=== PATIENT | female | born 1975 | race Caucasian/White ===

== ENCOUNTER 2023-05-09 16:24 | Emergency (ER) | payer MEDICARE ==
[2023-05-09] MEDS ORDERED: KETOROLAC 15 MG/ML 1 ML VIAL IM STA (16:44)
--- NOTE | 2023-05-09 16:47 | ED ---
Lower Extremity Injury HPI - General Chief Complaint: Extremity Injury, Lower Stated Complaint: right leg swelling Time Seen by Provider: 05/09/23 16:35 Source: patient Mode of arrival: ambulatory Limitations: no limitations - History of Present Illness Initial Comments: 47-year-old female presenting with chief complaint of swelling and pain to the right leg. She reports that nearly a week ago she fell down a few stairs and injured the right leg. She has been able to ambulate since. Today when she woke up she had increasing pain throughout the leg mainly in the calf. She states that it feels tight and swollen. She has been taking ibuprofen with little relief. No chest pain or difficulty breathing. No history of blood clots. No recent surgery or travel. No palpitations. - Related Data Allergies Allergy/AdvReac Type Severity Reaction Status Date / Time No Known Allergies Allergy Verified 05/09/23 16:29 Review of Systems ROS Statement: Those systems with pertinent positive or pertinent negative responses have been documented in the HPI. ROS Other: All systems not noted in ROS Statement are negative. Past Medical History Past Medical History: Diabetes Mellitus Past Surgical History: Bariatric Surgery, Cholecystectomy Past Psychological History: Bipolar General Exam Limitations: no limitations General appearance: alert, in no apparent distress Head exam: Present: atraumatic, normocephalic, normal inspection Eye exam: Present: normal appearance Neck exam: Present: normal inspection, full ROM Respiratory exam: Present: normal lung sounds bilaterally. Absent: respiratory distress, wheezes, rales, rhonchi, stridor Cardiovascular Exam: Present: regular rate, normal rhythm, normal heart sounds. Absent: systolic murmur, diastolic murmur, rubs, gallop, clicks Extremities exam: Present: pedal edema, calf tenderness Neurological exam: Present: alert, oriented X3, CN II-XII intact Psychiatric exam: Present: normal affect, normal mood Skin exam: Present: warm, dry, intact, normal color. Absent: rash Course Vital Signs 05/09/23 16:25 Temperature 97.8 F Pulse Rate 106 H Respiratory 20 Rate Blood Pressure 144/83 O2 Sat by Pulse 97 Oximetry Medical Decision Making - Medical Decision Making Was pt. sent in by a medical professional or institution (, PA, SIGN PAINTER, urgent care, hospital, or senior care...) When possible be specific @ -No Did you speak to anyone other than the patient for history (EMS, parent, family, police, friend...)? What history was obtained from this source @ -No Did you review nursing and triage notes (agree or disagree)? Why? @ -I reviewed and agree with nursing and triage notes Were old charts reviewed (outside hosp., previous admission, EMS record, old EKG, old radiological studies, urgent care reports/EKG's, senior care records)? Report findings @ -No old charts were reviewed Differential Diagnosis (chest pain, altered mental status, abdominal pain women, abdominal pain men, vaginal bleeding, weakness, fever, dyspnea, syncope, headache, dizziness, GI bleed, back pain, seizure, CVA, palpatations, mental health, musculoskeletal)? @ -Differential Musculoskeletal Muscular strain, contusion, ligament sprain, fracture, arthritis, septic arthritis, bursitis, cellulitis, muscle spasm, nerve compression, DVT, arterial occlusion, herpes zoster, electrolyte abnormality, tumor.... This is not meant to be in all inclusive list EKG interpreted by me (3pts min.). @ -As above X-rays interpreted by me (1pt min.). @ -None done CT interpreted by me (1pt min.). @ -None done U/S interpreted by me (1pt. min.). @ -US is negative for DVT What testing was considered but not performed or refused? (CT, X-rays, U/S, labs)? Why? @ -None What meds were considered but not given or refused? Why? @ -None Did you discuss the management of the patient with other professionals (professionals i.e. , PA, SIGN PAINTER, lab, RT, psych nurse, social media manager, instructional facilitator, teacher, environmental technical officer, case packer and sealer)? Give summary @ -No Was smoking cessation discussed for >3mins.? @ -No Was critical care preformed (if so, how long)? @ -No Were there social determinants of health that impacted care today? How? (Homelessness, low income, unemployed, alcoholism, drug addiction, transportation, low edu. Level, literacy, decrease access to med. care, correction, rehab)? @ -No Was there de-escalation of care discussed even if they declined (Discuss DNR or withdrawal of care, Hospice)? DNR status @ -No What co-morbidities impacted this encounter? (DM, HTN, Smoking, COPD, CAD, Ca ncer, CVA, ARF, Chemo, Hep., AIDS, mental health diagnosis, sleep apnea, morbid obesity)? @ -None Was patient admitted / discharged? Hospital course, mention meds given and route, prescriptions, significant lab abnormalities, going to OR and other pertinent info. @ -47-year-old female presenting with chief complaint of pain and swelling to the right lower extremity. She states that about a week ago she missed the the last few steps on her porch and injured the leg. She has been able to weight-bear. She states that yesterday she was up on her feet a lot more than she had been since her injury. Today she had increased pain and swelling. On physical examination the leg is warm and distal pulses are 2+. She does have tenderness on palpation of the calf. She has full range of motion. Ultrasound is negative for DVT. CBC is unremarkable. Creatinine kinase is WNL. She reports improvement in her pain after morphine. Patient is educated on supportive management at home. She is educated on alarms symptoms that should prompt immediate reevaluation. Follow-up with PCP. Report back to ER with any new or worsening symptoms. Discussed return parameters and answered all questions. Patient conveyed verbal understanding and agreed to the plan. I discussed this case in detail with my attending Dr. Parker Undiagnosed new problem with uncertain prognosis? @ -No Drug Therapy requiring intensive monitoring for toxicity (Heparin, Nitro, Insulin, Cardizem)? @ -No Were any procedures done? @ -No Diagnosis/symptom? @ -Leg cramping Acute, or Chronic, or Acute on Chronic? @ -Acute Uncomplicated (without systemic symptoms) or Complicated (systemic symptoms)? @ -uncomplicated Side effects of treatment? @ -No Exacerbation, Progression, or Severe Exacerbation? @ -No Poses a threat to life or bodily function? How? (Chest pain, [place], [place], pneumonia, PE, COPD, DKA, ARF, appy, cholecystitis, CVA, Diverticulitis, Homicidal, Suicidal, threat to staff... and all critical care pts) @ -Low likelihood - Lab Data Result diagrams: 05/09/23 18:28 05/09/23 18:28 Lab Results 05/09/23 05/09/23 Range/Units 18:28 18:28 WBC 7.9 (3.8-10.6) k/uL RBC 4.73 (3.80-5.40) m/uL Hgb 13.7 (11.4-16.0) gm/dL Hct 41.8 (34.0-46.0) % MCV 88.2 (80.0-100.0) fL MCH 29.0 (25.0-35.0) pg MCHC 32.9 (31.0-37.0) g/dL RDW 13.3 (11.5-15.5) % Plt Count 197 (150-450) k/uL MPV 8.8 Neutrophils % 59 % Lymphocytes % 29 % Monocytes % 8 % Eosinophils % 2 % Basophils % 1 % Neutrophils # 4.7 (1.3-7.7) k/uL Lymphocytes # 2.3 (1.0-4.8) k/uL Monocytes # 0.6 (0-1.0) k/uL Eosinophils # 0.1 (0-0.7) k/uL Basophils # 0.0 (0-0.2) k/uL Sodium 133 L (137-145) mmol/L Potassium 4.4 (3.5-5.1) mmol/L Chloride 103 (98-107) mmol/L Carbon Dioxide 23 (22-30) mmol/L Anion Gap 7 mmol/L BUN 18 H (7-17) mg/dL Creatinine 0.66 (0.52-1.04) mg/dL Est GFR (CKD-EPI)AfAm >90 (>60 ml/min/1.73 sqM) Est GFR (CKD-EPI)NonAf >90 (>60 ml/min/1.73 sqM) Glucose 216 H (74-99) mg/dL Calcium 8.7 (8.4-10.2) mg/dL Total Bilirubin 0.4 (0.2-1.3) mg/dL AST 23 (14-36) U/L ALT 17 (4-34) U/L Alkaline Phosphatase 83 (38-126) U/L Creatine Kinase 85 (30-135) U/L Total Protein 6.1 L (6.3-8.2) g/dL Albumin 3.5 (3.5-5.0) g/dL Disposition Clinical Impression: Leg pain Disposition: HOME SELF-CARE Condition: Good Instructions (If sedation given, give patient instructions): Leg Pain (ED) Additional Instructions: Follow-up with PCP. Report back to ER with any new or worsening symptoms. Take Motrin and Tylenol as needed for pain control. Rest, ice, elevate the leg. Is patient prescribed a controlled substance at d/c from ED?: No Referrals: Nonstaff,Physician [Primary Care Provider] - 1-2 days Time of Disposition: 19:20
[2023-05-09] MEDS ORDERED: diphenhydrAMINE 50 MG CAP PO STA (16:49)
--- NOTE | 2023-05-09 17:29 | US ---
EXAMINATION TYPE: US venous doppler duplex LE RT DATE OF EXAM: 05/09/2023 4:45 PM COMPARISON: NONE CLINICAL INDICATION: Female, 47 years old with history of swelling; swelling and pain in reeves after r ecent fall down stairs, no h/o DVT SIDE PERFORMED: Right TECHNIQUE: The lower extremity deep venous system is examined utilizing real time linear array sonog marino with graded compression, doppler sonography and color-flow sonography. VESSELS IMAGED: Common Femoral Vein Deep Femoral Vein Greater Saphenous Vein * Femoral Vein Popliteal Vein Small Saphenous Vein * Proximal Calf Veins Posterior tibial veins (* superficial vessels) Right Leg: Negative for DVT IMPRESSION: No evidence for DVT within the right lower extremity.
[2023-05-09] MEDS ORDERED: MORPHINE SULFATE 4 MG/ML SYRINGE IVP STA (18:04)
[2023-05-09 18:39] LABS: Basophils % (A) 1 %; Eosinophils # (A) 0.1 k/uL (0-0.7); Eosinophils % (A) 2 %; HCT 41.8 % (34.0-46.0); HGB 13.7 gm/dL (11.4-16.0); Lymphocytes # (A) 2.3 k/uL (1.0-4.8); Lymphocytes % (A) 29 %; MCHC 32.9 g/dL (31.0-37.0); MCV 88.2 fL (80.0-100.0); Mean Platelet Volume 8.8; Monocytes # (A) 0.6 k/uL (0-1.0); Monocytes % (A) 8 %; Neutrophils # (A) 4.7 k/uL (1.3-7.7); Neutrophils % (A) 59 %; Platelet Count 197 k/uL (150-450); RBC 4.73 m/uL (3.80-5.40); RDW 13.3 % (11.5-15.5); WBC 7.9 k/uL (3.8-10.6)
[2023-05-09 18:49] LABS: ALT 17 U/L (4-34); AST 23 U/L (14-36); African American GFR (CKD) >90 (>60 ml/min/1.73 sqM); Albumin 3.5 g/dL (3.5-5.0); Alkaline Phosphatase 83 U/L (38-126); Anion Gap 7 mmol/L; Blood Urea Nitrogen 18 mg/dL (7-17); Calcium 8.7 mg/dL (8.4-10.2); Carbon Dioxide 23 mmol/L (22-30); Chloride 103 mmol/L (98-107); Creatine Kinase 85 U/L (30-135); Glucose 216 mg/dL (74-99); Non-African American GFR(CKD) >90 (>60 ml/min/1.73 sqM); Potassium 4.4 mmol/L (3.5-5.1); Sodium 133 mmol/L (137-145); Total Bilirubin 0.4 mg/dL (0.2-1.3); Total Protein 6.1 g/dL (6.3-8.2)
[2023-05-09 19:41] VITALS: BP 107/63; PULSE 67; RESP 18; TEMP 97.9
== END 2023-05-09 19:40 | disposition home or self-care (01) ==
LOC: EC 16:24
DX: M79.661 Pain in right lower leg (principal); E11.9 Type 2 diabetes mellitus without complications; W10.9XXA Fall (on) (from) unspecified stairs and steps, initial encounter
CPT/HCPCS: 36415; 80053; 82550; 85025; 93971; 99284; 96374; 96372; J2270; J1885

== ENCOUNTER 2023-09-22 08:12 | Inpatient (IN) | payer MEDICARE ==
[2023-09-22] MEDS ORDERED: ONDANSETRON 4 MG/2 ML VIAL IVP STA ×2 (08:51→17:47)
[2023-09-22 09:18] LABS: ALT 16 U/L (4-34); AST 33 U/L (14-36); African American GFR (CKD) >90 (>60 ml/min/1.73 sqM); Alkaline Phosphatase 85 U/L (38-126); Anion Gap 12 mmol/L; Blood Urea Nitrogen 20 mg/dL (7-17); Calcium 9.2 mg/dL (8.4-10.2); Carbon Dioxide 25 mmol/L (22-30); Chloride 99 mmol/L (98-107); Glucose 260 mg/dL (74-99); Non-African American GFR(CKD) 80 (>60 ml/min/1.73 sqM); Potassium 4.2 mmol/L (3.5-5.1); Sodium 136 mmol/L (137-145); Total Bilirubin 0.6 mg/dL (0.2-1.3); Total Protein 6.7 g/dL (6.3-8.2)
--- NOTE | 2023-09-22 09:20 | XR ---
EXAMINATION TYPE: XR chest 2V DATE OF EXAM: 09/22/2023 9:12 AM CLINICAL INDICATION:Female, 48 years old with history of difficulty breathing; [facility] COMPARISON: None TECHNIQUE: XR chest 2V Frontal and lateral views of the chest. FINDINGS: Lungs/Pleura: There is no evidence of pleural effusion, focal consolidation, or pneumothorax. Pulmonary vascularity: Unremarkable. Heart/mediastinum: Cardiomediastinal silhouette is unremarkable. A loop recorder projects over the le ft thorax over the heart. Musculoskeletal: No acute osseous pathology. IMPRESSION: No acute cardiopulmonary disease/process.
[2023-09-22 09:22] LABS: INR 0.9 (<1.2); Partial Thromboplastin Time 25.1 sec (22.0-30.0); Prothrombin Time 10.2 sec (10.0-12.5)
[2023-09-22 09:30] LABS: HCT 53.6 % (34.0-46.0); HGB 17.7 gm/dL (11.4-16.0); MCH 28.6 pg (25.0-35.0); MCHC 33.1 g/dL (31.0-37.0); MCV 86.6 fL (80.0-100.0); Mean Platelet Volume 9.4; Platelet Count 248 k/uL (150-450); RBC 6.19 m/uL (3.80-5.40); RDW 12.9 % (11.5-15.5); WBC 3.7 k/uL (3.8-10.6)
[2023-09-22] MEDS ORDERED: MORPHINE SULFATE 4 MG/ML SYRINGE IVP STA (09:46)
--- NOTE | 2023-09-22 09:59 | ED ---
SOB HPI - General Chief Complaint: Shortness of Breath Stated Complaint: DESEAN Time Seen by Provider: 09/22/23 08:20 Source: patient, family Mode of arrival: ambulatory Limitations: no limitations - History of Present Illness Initial Comments: 48-year-old female with past medical history of diabetes mellitus - diet controlled, who presents emergency Department with shortness of breath and right shoulder pain. States that the symptoms started last night. States that she feels short of breath at rest and with exertion. She is having some posterior right shoulder/chest wall discomfort which is worse with positional changes. States that the pain is making her feel nauseated. Pain comes in waves and is currently at a 4 out of 10 right now. She did not attempt to take anything at home for the symptoms. Denies fevers, chills or cough. No history of DVT or PE. No history of coronary disease. She has never had a cardiac workup. She denies any abdominal pain but does admit to weight loss. History of gastric band which was removed. She denies any abdominal pain. No numbness, tickling or weakness in her extremities. No other alleviating, precipitating or mopping factors - Related Data Home Medications Medication Instructions Recorded Confirmed ARIPiprazole [Abilify] 22.5 mg PO DAILY 09/22/23 09/22/23 Dextroamphetamine/Amphetamine 25 mg PO DAILY 09/22/23 09/22/23 [Adderall Xr 25 mg Capsule] lamoTRIgine [LaMICtal] 50 mg PO DAILY 09/22/23 09/22/23 traZODone HCL 150 mg PO HS PRN 09/22/23 09/22/23 Allergies Allergy/AdvReac Type Severity Reaction Status Date / Time metformin AdvReac Diarrhea Verified 09/22/23 11:06 Review of Systems ROS Statement: Those systems with pertinent positive or pertinent negative responses have been documented in the HPI. ROS Other: All systems not noted in ROS Statement are negative. Past Medical History Past Medical History: Diabetes Mellitus History of Any Multi-Drug Resistant Organisms: None Reported Past Surgical History: Bariatric Surgery, Cholecystectomy Past Psychological History: Bipolar Smoking Status: Current every day smoker, Vaper Past Alcohol Use History: Rare Past Drug Use History: Marijuana General Exam Limitations: no limitations General appearance: alert, in no apparent distress Head exam: Present: atraumatic, normocephalic, normal inspection Eye exam: Present: normal appearance, PERRL, EOMI. Absent: scleral icterus, conjunctival injection, periorbital swelling ENT exam: Present: normal exam, mucous membranes moist Neck exam: Present: normal inspection. Absent: tenderness, meningismus, lymphadenopathy Respiratory exam: Present: normal lung sounds bilaterally, chest wall tenderness (To palpation of the right posterior chest wall). Absent: respiratory distress, wheezes, rales, rhonchi, stridor Cardiovascular Exam: Present: regular rate, normal rhythm, normal heart sounds. Absent: systolic murmur, diastolic murmur, rubs, gallop, clicks GI/Abdominal exam: Present: soft, normal bowel sounds. Absent: distended, tenderness, guarding, rebound, rigid Extremities exam: Present: normal inspection, full ROM, normal capillary refill. Absent: tenderness, pedal edema, joint swelling, calf tenderness Back exam: Present: normal inspection Neurological exam: Present: alert, oriented X3, CN II-XII intact Psychiatric exam: Present: normal affect, normal mood Skin exam: Present: warm, dry, intact, normal color. Absent: rash Course Vital Signs 09/22/23 09/22/23 09/22/23 08:17 08:42 08:44 Temperature 98 F Pulse Rate 90 85 Respiratory 18 18 20 Rate Blood Pressure 125/73 129/116 O2 Sat by Pulse 99 99 Oximetry 09/22/23 09/22/23 09/22/23 09:20 10:20 11:00 Temperature Pulse Rate 68 79 80 Respiratory 16 16 Rate Blood Pressure 145/69 128/98 130/91 O2 Sat by Pulse 98 98 95 Oximetry 09/22/23 09/22/23 09/22/23 11:21 11:30 11:58 Temperature 97.6 F Pulse Rate 80 76 Respiratory 22 Rate Blood Pressure 131/98 131/98 O2 Sat by Pulse 95 97 96 Oximetry 09/22/23 09/22/23 09/22/23 12:00 12:30 13:00 Temperature Pulse Rate 76 89 Respiratory Rate Blood Pressure 141/94 102/67 148/121 O2 Sat by Pulse 94 L 97 Oximetry 09/22/23 09/22/23 09/22/23 13:30 14:00 14:30 Temperature Pulse Rate 80 80 72 Respiratory Rate Blood Pressure 122/105 108/94 121/82 O2 Sat by Pulse 94 L 94 L 93 L Oximetry 09/22/23 15:22 Temperature Pulse Rate 75 Respiratory 18 Rate Blood Pressure 106/78 O2 Sat by Pulse 94 L Oximetry Medical Decision Making - Medical Decision Making Was pt. sent in by a medical professional or institution (JEF Rojas, ADA ACCOMMODATION CONSULTANT, urgent care, hospital, or usp...) When possible be specific @ -No Did you speak to anyone other than the patient for history (EMS, parent, family, police, friend...)? What history was obtained from this source @ -No Did you review nursing and triage notes (agree or disagree)? Why? @ -I reviewed and agree with nursing and triage notes Were old charts reviewed (outside hosp., previous admission, EMS record, old EKG, old radiological studies, urgent care reports/EKG's, usp records)? Report findings @ -No old charts were reviewed Differential Diagnosis (chest pain, altered mental status, abdominal pain women, abdominal pain men, vaginal bleeding, weakness, fever, dyspnea, syncope, headache, dizziness, GI bleed, back pain, seizure, CVA, palpatations, mental health, musculoskeletal)? @ -Differential Chest Pain: Stable Angina, Unstable Angina, STEMI, NSTEMI Aortic Dissection, Pneumothorax, Musculoskeletal, Esophageal Spasm GERD, Cholecystitis, Pancreatitis, Zoster, this is not meant to be an all-inclusive list. EKG interpreted by me (3pts min.). @ -Yes and demonstrates a sinus rhythm with a rate of 98. MS interval 142. QRS 102. QTC of 423. No acute ST segment elevations or depressions. Some PVCs X-rays interpreted by me (1pt min.). @ -Yes and demonstrates no acute process CT interpreted by me (1pt min.). @ -Yes and demonstrates no PE U/S interpreted by me (1pt. min.). @ -None done What testing was considered but not performed or refused? (CT, X-rays, U/S, labs)? Why? @ -None What meds were considered but not given or refused? Why? @ -None Did you discuss the management of the patient with other professionals (professionals i.e. JEF Rojas, ADA ACCOMMODATION CONSULTANT, lab, RT, psych nurse, sexual assault social worker, window clerk, teacher, tactical/mobile watch officer, counter caser)? Give summary @ -Spoke with Dr. Hobson who will admit the patient Was smoking cessation discussed for >3mins.? @ -No Was critical care preformed (if so, how long)? @ -Yes, 35 minutes for heparinizing the patient Were there social determinants of health that impacted care today? How? (Homelessness, low income, unemployed, alcoholism, drug addiction, transportation, low edu. Level, literacy, decrease access to med. care, care home, rehab)? @ -No Was there de-escalation of care discussed even if they declined (Discuss DNR or withdrawal of care, Hospice)? DNR status @ -No What co-morbidities impacted this encounter? (DM, HTN, Smoking, COPD, CAD, Cance r, CVA, ARF, Chemo, Hep., AIDS, mental health diagnosis, sleep apnea, morbid obesity)? @ -Diabetes mellitus Was patient admitted / discharged? Hospital course, mention meds given and route, prescriptions, significant lab abnormalities, going to OR and other pert inent info. @ -Admitted. Upon arrival patient was placed into room 18. Thorough history and physical exam was performed. 12-lead EKG is obtained. Laboratory studies are conducted. Chest x-rays performed. D-dimer is elevated therefore patient is sent for CT. CT does not demonstrate a PE. There is a lung nodule. Patient's troponin is elevated. Discussed the results with the patient. She will require admission at this time due to elevated troponin. I did heparinize the patient. She has no contra indications to heparinizing. Spoke with Dr. Hobson who will admit the patient Undiagnosed new problem with uncertain prognosis? @ -Yes Drug Therapy requiring intensive monitoring for toxicity (Heparin, Nitro, Insu clarita, Cardizem)? @ -Heparin Were any procedures done? @ -No Diagnosis/symptom? @ -Acute posterior chest wall pain, right, NSTEMI Acute, or Chronic, or Acute on Chronic? @ -Acute Uncomplicated (without systemic symptoms) or Complicated (systemic symptoms)? @ -Complicated Side effects of treatment? @ -No Exacerbation, Progression, or Severe Exacerbation? @ -No Poses a threat to life or bodily function? How? (Chest pain, [place], [place], pneumonia, PE, COPD, DKA, ARF, appy, cholecystitis, CVA, Diverticulitis, Homicidal, Suicidal, threat to staff... and all critical care pts) @ -Yes as patient has elevated troponin - Lab Data Result diagrams: 09/22/23 08:50 09/22/23 08:50 Lab Results 09/22/23 09/22/23 09/22/23 Range/Units 08:50 08:50 08:50 WBC 3.7 L (3.8-10.6) k/uL RBC 6.19 H (3.80-5.40) m/uL Hgb 17.7 H (11.4-16.0) gm/dL Hct 53.6 H (34.0-46.0) % MCV 86.6 (80.0-100.0) fL MCH 28.6 (25.0-35.0) pg MCHC 33.1 (31.0-37.0) g/dL RDW 12.9 (11.5-15.5) % Plt Count 248 (150-450) k/uL MPV 9.4 Neutrophils % (Manual) 41 % Band Neuts % (Manual) 1 % Lymphocytes % (Manual) 34 % Monocytes % (Manual) 20 % Eosinophils % (Manual) 4 % Neutrophils # (Manual) 1.50 (1.3-7.7) k/uL Lymphocytes # (Manual) 1.26 (1.0-4.8) k/uL Monocytes # (Manual) 0.74 (0-1.0) k/uL Eosinophils # (Manual) 0.15 (0-0.7) k/uL Nucleated RBCs 0 (0-0) /100 WBC Manual Slide Review Performed RBC Morphology Normal PT 10.2 (10.0-12.5) sec INR 0.9 (<1.2) APTT 25.1 (22.0-30.0) sec D-Dimer 0.58 (<0.60) mg/L FEU Sodium 136 L (137-145) mmol/L Potassium 4.2 (3.5-5.1) mmol/L Chloride 99 (98-107) mmol/L Carbon Dioxide 25 (22-30) mmol/L Anion Gap 12 mmol/L BUN 20 H (7-17) mg/dL Creatinine 0.85 (0.52-1.04) mg/dL Est GFR (CKD-EPI)AfAm >90 (>60 ml/min/1.73 sqM) Est GFR (CKD-EPI)NonAf 80 (>60 ml/min/1.73 sqM) Glucose 260 H (74-99) mg/dL Plasma Lactic Acid Jon (0.7-2.0) mmol/L Calcium 9.2 (8.4-10.2) mg/dL Total Bilirubin 0.6 (0.2-1.3) mg/dL AST 33 (14-36) U/L ALT 16 (4-34) U/L Alkaline Phosphatase 85 (38-126) U/L Troponin I (0.000-0.034) ng/mL Total Protein 6.7 (6.3-8.2) g/dL Albumin 4.0 (3.5-5.0) g/dL 09/22/23 09/22/23 Range/Units 08:50 08:50 WBC (3.8-10.6) k/uL RBC (3.80-5.40) m/uL Hgb (11.4-16.0) gm/dL Hct (34.0-46.0) % MCV (80.0-100.0) fL MCH (25.0-35.0) pg MCHC (31.0-37.0) g/dL RDW (11.5-15.5) % Plt Count (150-450) k/uL MPV Neutrophils % (Manual) % Band Neuts % (Manual) % Lymphocytes % (Manual) % Monocytes % (Manual) % Eosinophils % (Manual) % Neutrophils # (Manual) (1.3-7.7) k/uL Lymphocytes # (Manual) (1.0-4.8) k/uL Monocytes # (Manual) (0-1.0) k/uL Eosinophils # (Manual) (0-0.7) k/uL Nucleated RBCs (0-0) /100 WBC Manual Slide Review RBC Morphology PT (10.0-12.5) sec INR (<1.2) APTT (22.0-30.0) sec D-Dimer (<0.60) mg/L FEU Sodium (137-145) mmol/L Potassium (3.5-5.1) mmol/L Chloride (98-107) mmol/L Carbon Dioxide (22-30) mmol/L Anion Gap mmol/L BUN (7-17) mg/dL Creatinine (0.52-1.04) mg/dL Est GFR (CKD-EPI)AfAm (>60 ml/min/1.73 sqM) Est GFR (CKD-EPI)NonAf (>60 ml/min/1.73 sqM) Glucose (74-99) mg/dL Plasma Lactic Acid Jon 1.7 (0.7-2.0) mmol/L Calcium (8.4-10.2) mg/dL Total Bilirubin (0.2-1.3) mg/dL AST (14-36) U/L ALT (4-34) U/L Alkaline Phosphatase (38-126) U/L Troponin I 0.085 H* (0.000-0.034) ng/mL Total Protein (6.3-8.2) g/dL Albumin (3.5-5.0) g/dL Disposition Clinical Impression: NSTEMI (non-ST elevated myocardial infarction), Shoulder pain, Acute respiratory insufficiency Disposition: ADMITTED IP TO THIS [facility] Condition: Serious Is patient prescribed a controlled substance at d/c from ED?: No Time of Disposition: 11:07 Decision to Admit Reason: Admit from EC Decision Date: 09/22/23 Decision Time: 11:07
[2023-09-22 10:21] LABS: Band Neutrophils % 1 %; Eosinophils # (M) 0.15 k/uL (0-0.7); Lymphocytes # (M) 1.26 k/uL (1.0-4.8); Monocytes # (M) 0.74 k/uL (0-1.0); Neutrophils % (M) 41 %; Nucleated Red Blood Cells 0 /100 WBC (0-0); Total Cells Counted 100
[2023-09-22 10:22] LABS: RBC Morphology Normal
--- NOTE | 2023-09-22 10:28 | CT ---
EXAMINATION TYPE: CT chest angio for PE DATE OF EXAM: 09/22/2023 COMPARISON: None available. HISTORY: SOB and right shoulder pain, 30lbs of weightloss in [address] DLP: 422.3 mGycm Automated exposure control for dose reduction was used. CONTRAST: CT Chest for pulmonary embolism performed with with IV Contrast, patient injected with 100 mL of Isov ue 370. FINDINGS: LUNGS: Septal note is made of azygous fissure. There is a trace right pleural effusion. There is a 5. 3 mm nodule in the right lower lobe on series 406 image 71. The lungs otherwise appear clear. MEDIASTINUM: There is satisfactory enhancement of the pulmonary artery and its branches, there is no CT evidence for pulmonary embolism. There are no greater than 1 cm hilar or mediastinal lymph nodes. No pericardial effusion is seen. OTHER: No additional significant abnormality is seen. IMPRESSION: 1. No evidence of pulmonary embolism. 2. No evidence of thoracic aortic aneurysm or dissection. 3. Small right lower lobe pulmonary nodule. 4. In a low-risk patient, no further follow-up would be needed. In a high-risk patient, follow-up in one year is recommended. 5. Trace right pleural effusion.
[2023-09-22] MEDS ORDERED: NALOXONE 0.4 MG/ML 1 ML VIAL IV PRN (11:07)
[2023-09-22] MEDS ORDERED: HEPARIN SODIUM 1,000 UN/ML (10ML VL) IV ONE (11:09)
[2023-09-22] MEDS ORDERED: ASPIRIN 81 MG PO STA (11:09)
[2023-09-22] MEDS ORDERED: HEPARIN SOD,PORK IN 0.45% NACL 25,000 UNIT in 0.45% NACL 1 250ML.BAG IV SCH (11:15)
[2023-09-22] MEDS ORDERED: traZODone HCL 50 MG TAB PO PRN (11:50)
[2023-09-22] MEDS ORDERED: DEXTROSE 50% SYRINGE 50 ML IVP PRN ×2 (11:50)
[2023-09-22 12:14] LABS: Glucose,Whole Blood 194 mg/dL (70-110)
[2023-09-22] MEDS: INSULIN ASPART (NovoLOG) 100 UNIT/ML VIAL SQ SCH ×3 (12:18→21:10)
[2023-09-22] MEDS: ARIPiprazole 15 MG TAB PO SCH (12:24)
--- NOTE | 2023-09-22 12:44 | HP ---
HISTORY AND PHYSICAL CHIEF COMPLAINT: Shortness of breath and right shoulder pain. HISTORY OF PRESENT ILLNESS: This is a 48-year-old woman with a past medical history of diabetes mellitus, bipolar, was complaining of shortness of breath as well as right shoulder pain. The patient came to [facility]. The troponins were found to be elevated up to 0.08 indicating acute dti-AU-hesymti-elevation myocardial infarction. The CTA showed only right lower lobe pulmonary nodule. There is no history of any fever, rigor, or chills. PAST MEDICAL HISTORY: Diabetes mellitus, bipolar, rest of the history and rest of the chart is also reviewed. HOME MEDICATIONS: Reviewed include trazodone, dose and rest of medications reviewed. ALLERGIES: Metformin. FAMILY HISTORY: No history of heart disease or strokes in the family. SOCIAL HISTORY: Smoking by vaping marijuana. REVIEW OF SYSTEMS: A 14-point review is negative except as mentioned. PHYSICAL EXAMINATION: VITAL SIGNS: Pulse is 79, blood pressure 128/90, respirations 16. CHEST: Clear to auscultation. CARDIOVASCULAR: S1, S2. ABDOMEN: Soft, nontender. NERVOUS SYSTEM: No focal deficit. EXTREMITIES: Right shoulder minimum tenderness. HEENT: Normal. SKIN: No ulcer, rash, bleeding. JOINTS: No active deforming arthropathy. LABORATORY DATA: Reviewed. ASSESSMENT: 1. Right shoulder pain, possible acute mnm-SB-asuxubq elevation myocardial infarction, troponin 0.085. 2. Right pulmonary lung nodule. 3. Diabetes mellitus, type 2. 4. Bipolar. 5. History of bariatric surgery. 6. History of noncompliance. RECOMMENDATIONS: Recommended to continue current medications, continue symptomatic treatment. Acute coronary syndrome protocol. Cardiology consultation. Possible cardiac cath. Resume the home medications. Hemoglobin A1c, monitor closely. Prognosis guarded. Further recommendations to follow. Discussed with the patient and family at length. MMODL / IJN: [id number] /
[2023-09-22] MEDS: HYDROmorphone 1 MG/ML 1 ML SYRINGE IVP PRN ×3 (13:31→21:11)
[2023-09-22 17:35] LABS: Glucose,Whole Blood 150 mg/dL (70-110)
[2023-09-22 20:21] LABS: Glucose,Whole Blood 205 mg/dL (70-110)
[2023-09-22] MEDS: HEPARIN SODIUM 1,000 UN/ML (10ML VL) IV PRN (21:09)
[2023-09-23] MEDS: ONDANSETRON 4 MG/2 ML VIAL IVP PRN (00:16)
[2023-09-23] MEDS: HYDROmorphone 1 MG/ML 1 ML SYRINGE IVP PRN ×5 (02:03→20:05)
[2023-09-23 04:37] LABS: Basophils % (A) 1 %; Eosinophils % (A) 1 %; HCT 46.1 % (34.0-46.0); HGB 15.1 gm/dL (11.4-16.0); Lymphocytes # (A) 1.4 k/uL (1.0-4.8); Lymphocytes % (A) 22 %; MCH 28.5 pg (25.0-35.0); MCHC 32.7 g/dL (31.0-37.0); MCV 87.2 fL (80.0-100.0); Mean Platelet Volume 9.8; Monocytes # (A) 0.5 k/uL (0-1.0); Monocytes % (A) 8 %; Neutrophils # (A) 4.3 k/uL (1.3-7.7); Neutrophils % (A) 66 %; Platelet Count 209 k/uL (150-450); RBC 5.29 m/uL (3.80-5.40); RDW 12.8 % (11.5-15.5); WBC 6.6 k/uL (3.8-10.6)
[2023-09-23 04:55] LABS: Partial Thromboplastin Time 42.3 sec (22.0-30.0); Prothrombin Time 10.5 sec (10.0-12.5)
[2023-09-23 05:02] LABS: African American GFR (CKD) >90 (>60 ml/min/1.73 sqM); Anion Gap 10 mmol/L; Blood Urea Nitrogen 18 mg/dL (7-17); Calcium 8.8 mg/dL (8.4-10.2); Carbon Dioxide 24 mmol/L (22-30); Chloride 99 mmol/L (98-107); Glucose 176 mg/dL (74-99); Non-African American GFR(CKD) >90 (>60 ml/min/1.73 sqM); Sodium 133 mmol/L (137-145)
[2023-09-23] MEDS: HEPARIN SODIUM 1,000 UN/ML (10ML VL) IV PRN (05:02)
[2023-09-23 06:00] LABS: Glucose,Whole Blood 143 mg/dL (70-110)
[2023-09-23] MEDS: INSULIN ASPART (NovoLOG) 100 UNIT/ML VIAL SQ SCH ×4 (06:18→21:18)
[2023-09-23] MEDS ORDERED: HEPARIN SODIUM,PORCINE (1 ML) 2,500 UNIT in SODIUM CHLORIDE 0.9% 250 ML IRRIGATION PRN (07:00)
[2023-09-23] MEDS ORDERED: HEPARIN SODIUM,PORCINE 10,000 UNIT in SODIUM CHLORIDE 0.9% 1,000 ML IRRIGATION PRN (07:00)
[2023-09-23] MEDS: ASPIRIN 81 MG PO SCH (07:58)
[2023-09-23] MEDS: ARIPiprazole 15 MG TAB PO SCH (07:59)
[2023-09-23] MEDS: lamoTRIgine 25 MG TAB PO SCH (07:59)
[2023-09-23] MEDS: [UNRECOGNIZED DRUG - OTHER] PO SCH (08:01)
[2023-09-23] MEDS: AMPHETAMINE PO SCH (08:01)
[2023-09-23] MEDS: DEXTROAMPHETAMINE PO SCH (08:01)
--- NOTE | 2023-09-23 08:43 | P.CRDCN ---
History of Present Illness History of present illness: HISTORY OF PRESENT ILLNESS: This is a 48-year-old female with a past medical history significant for bipolar disorder, marijuana use, nicotine dependence in the form of the vaping, and loop recorder in 2010 secondary to recurrent syncope performed in [place], [place]. 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 We have been asked to see the patient in consultation for abnormal troponins. Patient examined at the bedside. Patient states she has been having right shoulder blade discomfort for approximately last 3 days. Patient states yesterday while she was at work she began to have right shoulder blade discomfort that continued to increase in intensity. She denied having any chest pain or pressure. She states the pain in her right shoulder blade is worse with movement and worse with deep inspiration. She denied any radiation of the pain to her arm. She reports that she is short of breath from the shoulder blade pain and states she does not feel like she can take a deep breath. She reports that yesterday at work she felt cold and clammy. She denied having a fever. She states that she feels all of her muscles are sore this morning. * EKG reveals sinus mechanism with Q waves in V1 and V2. No signs of acute ischemia * Chest xray negative for acute process * Chest CTA negative for pulmonary embolism * Laboratory data: Troponin 0.085. 0.079. 0.069. * Current home cardiac medications include none REVIEW OF SYSTEMS: At the time of my exam: CONSTITUTIONAL: Denies fever or chills. HEENT: Denies blurred vision, vision changes, or eye pain. Denies hemoptysis CARDIOVASCULAR: Denies chest pain. Denies orthopnea. Denies PND. Denies palpitations RESPIRATORY: Denies shortness of breath. GASTROINTESTINAL: Denies abdominal pain. Denies nausea or vomiting. HEMATOLOGIC: Denies bleeding disorders. GENITOURINARY: Denies any blood in urine. SKIN: Denies pruitis. Denies rash. PHYSICAL EXAM: VITAL SIGNS: Reviewed. GENERAL: Well-developed in no acute distress. HEENT: Head is normocephalic. Pupils are equal, round. Sclerae anicteric. Mucous membranes of the mouth are moist. Neck supple. No JVD or thyromegaly LUNGS: Respirations even and unlabored. Lungs essentially clear to auscultation bilaterally. HEART: Regular rate and rhythm. S1 and S2 heard. ABDOMEN: Soft. Nondistended. Nontender. EXTREMITIES: Normal range of motion. No clubbing or cyanosis. Peripheral pulses intact. No lower extremity edema NEUROLOGIC: Awake and alert. Oriented x 3. ASSESSMENT: Right shoulder blade pain 3 days Abnormal troponins, flat, of unclear etiology Chest pain, ruled out, patient denies having any chest pain or pressure Bipolar disorder Marijuana use Nicotine dependence in the form of vaping History of loop recorder insertion in 2010 secondary to recurrent syncope Morbid obesity: BMI 38.3 PLAN: An acute coronary and has been ruled out Discontinue IV heparin Obtain 2-D echo to assess cardiac structure and function Begin aspirin 81 mg daily and atorvastatin 40 mg at night Continue telemetry monitoring Patient to undergo stress echocardiogram today to assess for ischemia Smoking cessation recommended Abstinence from marijuana encourage Further recommendations pending patient's course Nurse practitioner note has been reviewed by physician. Signing provider agrees with the documented findings, assessment, and plan of care. Past Medical History Past Medical History: Diabetes Mellitus History of Any Multi-Drug Resistant Organisms: None Reported Past Surgical History: Bariatric Surgery, Cholecystectomy Past Psychological History: Bipolar Smoking Status: Current every day smoker, Vaper Past Alcohol Use History: Rare Past Drug Use History: Marijuana Medications and Allergies Home Medications Medication Instructions Recorded Confirmed Type ARIPiprazole [Abilify] 22.5 mg PO DAILY 09/22/23 09/22/23 History Dextroamphetamine/Amphetamine 25 mg PO DAILY 09/22/23 09/22/23 History [Adderall Xr 25 mg Capsule] lamoTRIgine [LaMICtal] 50 mg PO DAILY 09/22/23 09/22/23 History traZODone HCL 150 mg PO HS PRN 09/22/23 09/22/23 History Allergies Allergy/AdvReac Type Severity Reaction Status Date / Time metformin AdvReac Diarrhea Verified 09/22/23 11:06 Physical Exam Vitals: Vital Signs Temp Pulse Pulse Resp BP BP Pulse Ox 09/23/23 04:00 98.4 F 88 17 127/91 98 09/23/23 02:00 89 17 09/23/23 00:00 98.3 F 89 17 114/82 97 09/22/23 21:20 98.1 F 84 18 116/73 97 09/22/23 20:00 84 19 09/22/23 18:39 98.2 F 93 19 107/88 98 09/22/23 15:22 75 18 106/78 94 L 09/22/23 14:30 72 121/82 93 L 09/22/23 14:00 80 108/94 94 L 09/22/23 13:30 80 122/105 94 L 09/22/23 13:00 148/121 09/22/23 12:30 89 102/67 97 09/22/23 12:00 76 141/94 94 L 09/22/23 11:58 96 09/22/23 11:30 76 131/98 97 09/22/23 11:21 97.6 F 80 22 131/98 95 09/22/23 11:00 80 130/91 95 09/22/23 10:20 79 16 128/98 98 09/22/23 09:20 68 16 145/69 98 09/22/23 08:44 20 09/22/23 08:42 85 18 129/116 99 09/22/23 08:17 98 F 90 18 125/73 99 Intake and Output 09/22/23 09/22/23 09/23/23 14:59 22:59 06:59 Intake Total 329.324 93.592 Balance 329.324 93.592 Intake: Intake, IV Titration 92.324 93.592 Amount Heparin Sod,Pork in 0.45% 92.324 93.592 NaCl 25,000 unit In 0.45 % NaCl 1 250ml.bag @ 10. 02 UNITS/KG/HR 9.999 mls/ hr IV .Q24H [facility] Rx#: [id number] Oral 237 Other: Voiding Method Toilet Toilet # Voids 1 1 Weight 99.79 kg 99.79 kg 101.2 kg Results 09/23/23 04:07 09/23/23 04:07 Cardiac Enzymes 09/22/23 09/22/23 09/22/23 Range/Units 08:50 08:50 11:55 AST 33 (14-36) U/L Troponin I 0.085 H* 0.079 H* (0.000-0.034) ng/mL 09/22/23 Range/Units 15:11 AST (14-36) U/L Troponin I 0.069 H* (0.000-0.034) ng/mL Coagulation 09/22/23 09/22/23 09/23/23 Range/Units 08:50 17:49 04:07 PT 10.2 10.5 (10.0-12.5) sec APTT 25.1 37.6 H 42.3 H (22.0-30.0) sec CBC 09/22/23 09/23/23 Range/Units 08:50 04:07 WBC 3.7 L 6.6 (3.8-10.6) k/uL RBC 6.19 H 5.29 (3.80-5.40) m/uL Hgb 17.7 H 15.1 (11.4-16.0) gm/dL Hct 53.6 H 46.1 H (34.0-46.0) % Plt Count 248 209 (150-450) k/uL Comprehensive Metabolic Panel 09/22/23 09/23/23 Range/Units 08:50 04:07 Sodium 136 L 133 L (137-145) mmol/L Potassium 4.2 4.0 (3.5-5.1) mmol/L Chloride 99 99 (98-107) mmol/L Carbon Dioxide 25 24 (22-30) mmol/L BUN 20 H 18 H (7-17) mg/dL Creatinine 0.85 0.71 (0.52-1.04) mg/dL Glucose 260 H 176 H (74-99) mg/dL Calcium 9.2 8.8 (8.4-10.2) mg/dL AST 33 (14-36) U/L ALT 16 (4-34) U/L Alkaline Phosphatase 85 (38-126) U/L Total Protein 6.7 (6.3-8.2) g/dL Albumin 4.0 (3.5-5.0) g/dL Current Medications Generic Name Dose Route Start Last Admin Trade Name Freq PRN Reason Stop Dose Admin Aripiprazole 22.5 mg 09/22/23 12:30 09/22/23 12:24 Aripiprazole 15 Mg Tab PO Not Given DAILY [facility]ANG Dextrose/Water 25 ml 09/22/23 11:50 Dextrose 50% Syringe 50 Ml IVP PER PROTOCOL PRN Hypoglycemia Protocol Dextrose/Water 50 ml 09/22/23 11:50 Dextrose 50% Syringe 50 Ml IVP PER PROTOCOL PRN Hypoglycemia Protocol Heparin Sodium (Porcine) 0 unit 09/22/23 11:09 09/23/23 05:02 Heparin Sodium 1,000 Un/Ml (10ml Vl) IV 2,500 unit PER PROTOCOL PRN Administration Low PTT Protocol Hydromorphone HCl 1 mg 09/22/23 13:21 09/23/23 05:10 Hydromorphone 1 Mg/Ml 1 Ml Syringe IVP 1 mg Q3HR PRN Administration Pain Heparin Sodium/Sodium Chloride 250 mls @ 9.999 mls/hr 09/22/23 11:15 09/23/23 05:02 25,000 unit/ Sodium Chloride IV 14.03 units/kg/hr .Q24H [facility] 13.999 mls/hr Titration Protocol 10.02 UNITS/KG/HR Insulin Aspart 0 unit 09/22/23 12:30 09/23/23 06:18 Insulin Aspart (Novolog) 100 Unit/Ml Vial SQ Not Given ACHS [facility] Protocol Lamotrigine 50 mg 09/23/23 09:00 Lamotrigine 25 Mg Tab PO DAILY [facility] Naloxone HCl 0.2 mg 09/22/23 11:07 Naloxone 0.4 Mg/Ml 1 Ml Vial IV Q2M PRN Opioid Reversal Non-Formulary Medication 25 mg 09/23/23 09:00 Dextroamphetamine/Amphetamine [Adderall Xr 25 Mg Capsule] PO DAILY [facility] Ondansetron HCl 4 mg 09/23/23 00:10 09/23/23 00:16 Ondansetron 4 Mg/2 Ml Vial IVP 4 mg Q6HR PRN Administration Nausea And Vomiting Trazodone HCl 150 mg 09/22/23 11:50 Trazodone Hcl 50 Mg Tab PO HS PRN Insomnia Intake and Output 09/22/23 09/22/23 09/23/23 14:59 22:59 06:59 Intake Total 329.324 93.592 Balance 329.324 93.592 Intake: Intake, IV Titration 92.324 93.592 Amount Heparin Sod,Pork in 0.45% 92.324 93.592 NaCl 25,000 unit In 0.45 % NaCl 1 250ml.bag @ 10. 02 UNITS/KG/HR 9.999 mls/ hr IV .Q24H [facility] Rx#: [id number] Oral 237 Other: Voiding Method Toilet Toilet # Voids 1 1 Weight 99.79 kg 99.79 kg 101.2 kg Patient Weight 09/23/23 06:59 Weight 101.2 kg 09/23/23 04:07 09/23/23 04:07
[2023-09-23] MEDS ORDERED: ATORVASTATIN 80 MG TAB PO STA (09:59)
[2023-09-23] MEDS ORDERED: ALPRAZolam 0.25 MG TAB PO PRN (09:59)
[2023-09-23] MEDS ORDERED: ASPIRIN 325 MG TAB PO STA (09:59)
--- NOTE | 2023-09-23 11:27 | CA ---
Transthoracic Echo Report Name: Bessie Connors Age: 48 Gender: F : 1975 Exam Date: 09/23/2023 09:54 Exam Location: [facility] Ht (in): 64 Wt (lb): 223 Ordering Physician: Dot Juan DO Attending/Referring Phys: [id number], Yessica Drill Punch Operator Sara Stearns RDCS Procedure CPT: Indications: nstemi Cardiac Hx: Technical Quality: Technically difficult study Contrast 1: Definity Total Dose (mL): 2 Contrast 2: Total Dose (mL): MEASUREMENTS (Male / Female) Normal Values 2D ECHO LV Diastolic Diameter PLAX 4.8 cm 4.2 - 5.9 / 3.9 - 5.3 cm LV Systolic Diameter PLAX 3.6 cm IVS Diastolic Thickness 1.1 cm 0.6 - 1.0 / 0.6 - 0.9 cm LVPW Diastolic Thickness 1.1 cm 0.6 - 1.0 / 0.6 - 0.9 cm LV Relative Wall Thickness 0.5 LA Volume 57.0 cm??? 18 - 58 / 22 - 52 cm??? LA Volume Index 26.1 cm???/m??? 16 - 28 cm???/m??? M-MODE Aortic Root Diameter MM 2.9 cm LA Systolic Diameter MM 4.0 cm LA Ao Ratio MM 1.4 AV Cusp Separation MM 1.7 cm DOPPLER AV Peak Velocity 130.4 cm/s AV Peak Gradient 6.8 mmHg AV Mean Velocity 93.9 cm/s AV Mean Gradient 3.8 mmHg AV Velocity Time Integral 25.0 cm LVOT Peak Velocity 75.7 cm/s LVOT Peak Gradient 2.3 mmHg LVOT Velocity Time Integral 14.3 cm MV Area PHT 3.2 cm??? Mitral E Point Velocity 122.1 cm/s Mitral A Point Velocity 114.9 cm/s Mitral E to A Ratio 1.1 MV Deceleration Time 237.9 ms MV E' Velocity 5.4 cm/s Mitral E to MV E' Ratio 22.8 FINDINGS Left Ventricle Mildly increased left ventricular wall thickness. Left ventricular cavity size normal. Reduced global left ventricular systolic function. Left ventricular ejection fraction is estimated at 35-40 %. inferior hypokinesis Right Ventricle Normal right ventricular size and function. Right Atrium Normal right atrial size. Left Atrium Mildly increased left atrial volume. Mitral Valve Structurally normal mitral valve. Mitral valve thickened. Mild mitral annular calcification. Mild mitral regurgitation. Aortic Valve Trileaflet aortic valve. No aortic valve stenosis or regurgitation. Tricuspid Valve Structurally normal tricuspid valve. Trace tricuspid regurgitation. Pulmonic Valve Trace pulmonic regurgitation. Pericardium No pericardial effusion. Aorta Normal size aortic root and proximal ascending aorta. CONCLUSIONS Moderate to severe LV systolic dysfunction with an ejection fraction of 35-40% with inferior wall hypokinesis secondary to prior myocardial infarction Mild mitral regurgitation Previewed by: Dr. Hal Henderson MD (Electronically Signed) Final Date: 23 September 2023 11:26
[2023-09-23 11:37] LABS: Glucose,Whole Blood 135 mg/dL (70-110)
[2023-09-23] MEDS ORDERED: fentaNYL (PF) 50 MCG/ML 2 ML AMP ONE (14:12)
[2023-09-23] MEDS ORDERED: HEPARIN SODIUM,PORCINE 30 ML 30 ML ONE (14:12)
[2023-09-23] MEDS ORDERED: VERAPAMIL 2.5 MG/ML 2 ML AMP ONE (14:12)
[2023-09-23] MEDS ORDERED: IV FLUID CONTINUATION 1,000 ML IV ONE (14:30)
[2023-09-23] MEDS ORDERED: MIDAZOLAM 2 MG/2 ML VIAL IVP ONE (14:35)
[2023-09-23] MEDS ORDERED: fentaNYL (PF) 50 MCG/ML 2 ML AMP IVP ONE (14:35)
[2023-09-23] MEDS ORDERED: LIDOCAINE 1% INJ 10MG/ML (5 ML VIAL-PF) SQ ONE (14:38)
[2023-09-23] MEDS ORDERED: VERAPAMIL SYRINGE (5 MG/10 ML) INTRAARTER ONE (14:40)
[2023-09-23] MEDS ORDERED: HEPARIN SODIUM 1,000 UN/ML (10ML VL) IV ONE (14:46)
[2023-09-23] MEDS ORDERED: IOPAMIDOL-370 100ML BTL INJ ONE (14:56)
[2023-09-23] MEDS ORDERED: RX INFO: IV CONTRAST WAS GIVEN 1 EACH MISC MISCELLANE PRN (15:06)
[2023-09-23] MEDS ORDERED: SODIUM CHLORIDE 0.9% 1,000 ML IV SCH (15:15)
[2023-09-23] MEDS: lisinopriL 5 MG TAB PO SCH (15:20)
[2023-09-23] MEDS: METOPROLOL SUCCINATE (ER) 50 MG TAB.ER.24H PO SCH (15:20)
[2023-09-23] MEDS: DAPAGLIFLOZIN PROPANEDIOL 10 MG TABLET PO SCH (15:50)
--- NOTE | 2023-09-23 16:32 | PN ---
PROGRESS NOTE DATE OF SERVICE: 09/23/2023 SUBJECTIVE: This is a 48-year-old woman, who was admitted with right shoulder pain, had possible acute dkz-YJ-pxugmof-elevation myocardial infarction. The patient's stress test is abnormal. The patient is scheduled for a cardiac catheterization today. 2D echo showed uuwslvna-fx-ecpxak LV systolic dysfunction. PAST MEDICAL HISTORY: Reviewed. PHYSICAL EXAMINATION: VITAL SIGNS: Pulse is 87, blood pressure 110/65, respirations 17. CHEST: Clear to auscultation. CARDIOVASCULAR: S1 and S2 muffled. ABDOMEN: Soft. NERVOUS SYSTEM: Nonfocal. LABORATORY DATA: Reviewed. ASSESSMENT: 1. Right shoulder pain, possible acute bov-VA-ihgidxh-elevation myocardial infarction. Troponin 0.085. 2. Ibsrfefa-ei-wvydru left ventricular dysfunction. The ejection fraction is 35% to 40% in the 2D echo. 3. Right pulmonary lung nodule. 4. Diabetes mellitus, type 2. 5. Bipolar. 6. History of bariatric surgery. 7. History of noncompliance. RECOMMENDATIONS: Recommend to continue current medications. Continue symptomatic treatment. Continue with antiplatelet agents. Closely follow with Cardiology. Repeat labs. Cardiac catheterization. Further recommendations to follow. MMODL / IJN: [id number] /
[2023-09-23 16:44] LABS: Glucose,Whole Blood 160 mg/dL (70-110)
--- NOTE | 2023-09-23 19:19 | P.CARDCATH ---
Date of Procedure: 09/23/23 Description of Procedure: DIAGNOSTIC CORONARY ANGIOGRAPHY and LEFT HEART CATH REPORT PROCEDURES PERFORMED: Left heart catheterization Selective coronary angiography Moderate conscious sedation 19 mins Ultrasound assisted Right radial access INDICATION: NSTEMI 48-year-old female who presented to the hospital with substernal chest heaviness and nausea and diaphoresis. She had mild but flat elevation of troponin levels. Her echo cardiogram showed resting wall motion abnormality in inferior and inferoapical segments. She also had cardiomyopathy with EF of 3035%. Due to this she was scheduled for an inpatient heart catheterization CONSENT: I have discussed the risks, benefits and alternative therapies for the above-mentioned procedure, sedation/analgesia and necessary blood product administration (if indicated, as they pertain to this patient). The patient has indicated understanding and acceptance of the risks and procedures discussed. Conscious Sedation: Patient's ECG, heart rate, blood pressure, pulse oximetry was monitored throughout the duration of procedure under my direct supervision. [1] mg Versed and [50] mg Fentanyl were used for induction of moderate conscious sedation. Total duration of moderate concious sedation 19 minutes. PROCEDURE: After explaining the risks, benefits and alternatives of the above mentioned procedures in detail to the patient, informed consent was obtained. Patient was taken to the catheterization lab, prepped and draped in usual sterile fashion using universal precuations. Barbow and debra test were performed to confirm adequate perfusion to fingers. Ultrasound was used to identify the radial artery. 1% lidocaine was infiltrated over the right radial artery. A 6-Armenian sheath was placed and secured in the right radial artery using modified Seldinger technique. The sheath was flushed and 5 mg verapamil was administered intra-arterially. J tipped wire was advanced under fluoroscopic guidance. Once the wire tip reache d aortic root 6000 units of IV heparin was given. Over the wire JL4 diagnostic catheter was advanced. Wire was removed, catheter was flushed and manipulated under fluoroscopy to selectively engaged the left coronary ostium. Left coronary angioplasty was performed in different angiographic projections. This catheter was exchanged for a JR4 diagnostic catheter over the wire. The catheter was flushed and manipulated to cross the aortic valve. LV pressures were obtained. Pullback was performed across aortic valve and catheter was manipulated to selectively engage the right coronary ostium under fluoroscopic guidance. Right coronary angiography was performed in different angiographic projections. Catheter was removed over the wire. Radial sheath was flushed. The right radial sheath was removed and a TR band was placed with excellent patent hemostasis was achieved. The patient tolerated the procedure well. Patient was transported back to the post catheterization holding area in stable condition. Angiographic images were reviewed in detail. HEMODYNAMICS: Aortic Pressure: 120/83 mmHg. LV pressure: And 22/70 mmHg. LVEDP 15 mmHg. SELECTIVE CORONARY ARTERIOGRAPHY: LEFT MAIN: The left main is a large caliber vessel which bifurcates into the LAD and circumflex. Left main appears angiographically normal. LEFT ANTERIOR DESCENDING CORONARY ARTERY: LAD is a large caliber vessel. It terminates before reaching the apex. It appears angiographically normal. It gives 1 diagonal branche which appears angiographically normal and is medium size. LEFT CIRCUMFLEX CORONARY ARTERY: It is co-dominant vessel. Left circumflex is a large caliber vessel. Prox LCx has 10-20% eccentric ulcerated plaque with good distal flow. Otherwise appears angiographically normal with good flow. It gives 2 OM branches which are mediums size and appears angiographically normal. RIGHT CORONARY ARTERY: Dominant vessel. The right coronary artery is a large caliber vessel which gives PDA and PLV branch. It appears angiographically normal. IMPRESSION: Ulcerated Plaque in Proximal LCx 10-20% MINOCA (myocardial infarction with non obstructive disease) Normal LVEDP Dilated cardiomyopathy with LVEF 35% by echo Inferior and inferoapical wall motion abnormality by Echo PLAN: Aspirin 81mg Plavix 75 mg for 6 months atorvastatin 80mg lisinopril 5mg metoprolol XL 25 mg daily Performing Physician Jorge Tamez MD
[2023-09-23] MEDS: ATORVASTATIN 40 MG TAB PO SCH (20:05)
[2023-09-23 20:45] LABS: Glucose,Whole Blood 136 mg/dL (70-110)
[2023-09-24] MEDS: HYDROmorphone 1 MG/ML 1 ML SYRINGE IVP PRN ×5 (04:10→20:39)
[2023-09-24 05:58] LABS: Glucose,Whole Blood 124 mg/dL (70-110)
[2023-09-24] MEDS: INSULIN ASPART (NovoLOG) 100 UNIT/ML VIAL SQ SCH ×4 (06:10→20:41)
[2023-09-24] MEDS: lisinopriL 5 MG TAB PO SCH (08:13)
[2023-09-24] MEDS: METOPROLOL SUCCINATE (ER) 50 MG TAB.ER.24H PO SCH (08:13)
[2023-09-24] MEDS: ASPIRIN 81 MG PO SCH (08:13)
[2023-09-24] MEDS: DAPAGLIFLOZIN PROPANEDIOL 10 MG TABLET PO SCH (08:13)
[2023-09-24] MEDS: ARIPiprazole 15 MG TAB PO SCH (08:13)
[2023-09-24] MEDS: lamoTRIgine 25 MG TAB PO SCH (08:13)
[2023-09-24] MEDS: CLOPIDOGREL 75 MG TAB PO SCH (08:13)
[2023-09-24] MEDS: AMPHETAMINE PO SCH (08:14)
[2023-09-24] MEDS: [UNRECOGNIZED DRUG - OTHER] PO SCH (08:14)
[2023-09-24] MEDS: DEXTROAMPHETAMINE PO SCH (08:14)
[2023-09-24] MEDS ORDERED: MAG HYDROX/AL HYDROX/SIMETH 30 ML CUP PO PRN (08:25)
[2023-09-24] MEDS: NITROGLYCERIN SL TABS 0.4 MG TAB SUBLINGUAL PRN ×4 (08:49→20:40)
[2023-09-24] MEDS: ISOSORBIDE MONONITRATE ER 30 MG TAB.ER.24H PO SCH (09:37)
[2023-09-24] MEDS: DILTIAZEM CD 120 MG CAP.ER.24H PO SCH (09:37)
[2023-09-24 10:28] LABS: Basophils % (A) 0 %; Eosinophils # (A) 0.1 k/uL (0-0.7); Eosinophils % (A) 1 %; HCT 41.8 % (34.0-46.0); HGB 13.7 gm/dL (11.4-16.0); Lymphocytes # (A) 1.4 k/uL (1.0-4.8); Lymphocytes % (A) 25 %; MCH 28.6 pg (25.0-35.0); MCHC 32.8 g/dL (31.0-37.0); MCV 87.1 fL (80.0-100.0); Mean Platelet Volume 9.7; Monocytes # (A) 0.5 k/uL (0-1.0); Monocytes % (A) 8 %; Neutrophils # (A) 3.5 k/uL (1.3-7.7); Neutrophils % (A) 62 %; Platelet Count 192 k/uL (150-450); RDW 12.7 % (11.5-15.5); WBC 5.7 k/uL (3.8-10.6)
[2023-09-24 10:50] LABS: African American GFR (CKD) >90 (>60 ml/min/1.73 sqM); Anion Gap 12 mmol/L; Blood Urea Nitrogen 18 mg/dL (7-17); Calcium 8.4 mg/dL (8.4-10.2); Carbon Dioxide 21 mmol/L (22-30); Chloride 101 mmol/L (98-107); Glucose 183 mg/dL (74-99); Non-African American GFR(CKD) >90 (>60 ml/min/1.73 sqM); Sodium 134 mmol/L (137-145)
[2023-09-24 11:59] LABS: Glucose,Whole Blood 129 mg/dL (70-110)
[2023-09-24] MEDS: PANTOPRAZOLE 40 MG/10 ML VIAL IVP SCH ×2 (13:16→20:40)
[2023-09-24] MEDS: IBUPROFEN 400 MG TAB PO PRN (13:17)
--- NOTE | 2023-09-24 13:23 | PN ---
PROGRESS NOTE DATE OF SERVICE: 09/24/2023 SUBJECTIVE: This is a 48-year-old woman who was admitted with right shoulder pain, also had acute non-ST segment elevation myocardial infarction. Cardiac catheterization showed moderate LV dysfunction and ulcerated plaque of the proximal circumflex with a 10% to 20%. No chest pain, no palpitations. The patient still complains of some chest pain. OBJECTIVE: VITAL SIGNS: Pulse 72, blood pressure 110/74, respirations 16. CHEST: Clear to auscultation. CARDIOVASCULAR: S1, S2. ABDOMEN: Soft. NERVOUS SYSTEM: No focal deficits. LABORATORY DATA: Reviewed. ASSESSMENT: 1. Acute iex-KJ-pruoizd-elevation myocardial infarction, status post cardiac catheterization showing ulcerated plaque proximal left circumflex 10% to 20%, dilated cardiomyopathy, ejection fraction 35%. 2. Troponin 0.085. 3. Right pulmonary lung nodule. 4. Diabetes mellitus, type 2. 5. Bipolar. 6. History of bariatric surgery. RECOMMENDATIONS: Recommended to continue current management, continue symptomatic treatment. Otherwise at this time, I will recommend to continue with medical treatment, continue with Protonix and recommended outpatient followup with Pulmonary for evaluation of the pulmonary nodules. Guarded prognosis. Further recommendations to follow. MMODL / IJN: [id number] /
[2023-09-24 13:32] VITALS: BMI 38.2
--- NOTE | 2023-09-24 13:44 | P.EN ---
Patient will require a glucometer on discharge to manage NIDDM and will be testing daily.
--- NOTE | 2023-09-24 13:45 | P.PN ---
Subjective HISTORY OF PRESENT ILLNESS: This is a 48-year-old female with a past medical history significant for bipolar disorder, marijuana use, nicotine dependence in the form of the vaping, and loop recorder in 2010 secondary to recurrent syncope performed in [place], [place]. 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 We have been asked to see the patient in consultation for abnormal troponins. Patient examined at the bedside. Patient states she has been having right shoulder blade discomfort for approximately last 3 days. Patient states yesterday while she was at work she began to have right shoulder blade discomfort that continued to increase in intensity. She denied having any chest pain or pressure. She states the pain in her right shoulder blade is worse with movement and worse with deep inspiration. She denied any radiation of the pain to her arm. She reports that she is short of breath from the shoulder blade pain and states she does not feel like she can take a deep breath. She reports that yesterday at work she felt cold and clammy. She denied having a fever. She states that she feels all of her muscles are sore this morning. * EKG reveals sinus mechanism with Q waves in V1 and V2. No signs of acute ischemia * Chest xray negative for acute process * Chest CTA negative for pulmonary embolism * Laboratory data: Troponin 0.085. 0.079. 0.069. * Current home cardiac medications include none Addendum entered and electronically signed by Awa Douglas NP-C 09/23/23 10:30: Echocardiogram obtained prior to stress echo revealing wall motion abnormalities . Stress test cancelled and patient will undergo cardiac catheterization this afternoon with Dr. Tamez. 09/24/2023 Patient examined this morning at the bedside. Patient underwent cardiac catheterization yesterday revealing 10-20% plaque in the proximal circumflex with otherwise normal coronary arteries. Patient complaining of chest pain this morning that is relieved with sublingual nitro. EKG completed with T-wave inversions in anterior lateral leads. Echocardiogram completed revealing ejection fraction 35-40%, inferior hypokinesis, mild MR PHYSICAL EXAM: VITAL SIGNS: Reviewed. GENERAL: Well-developed in no acute distress. HEENT: Head is normocephalic. Pupils are equal, round. Sclerae anicteric. Mucous membranes of the mouth are moist. Neck supple. No JVD or thyromegaly LUNGS: Respirations even and unlabored. Lungs essentially clear to auscultation bilaterally. HEART: Regular rate and rhythm. S1 and S2 heard. ABDOMEN: Soft. Nondistended. Nontender. EXTREMITIES: Normal range of motion. No clubbing or cyanosis. Peripheral pulses intact. No lower extremity edema NEUROLOGIC: Awake and alert. Oriented x 3. ASSESSMENT: Right shoulder blade pain 3 days with minimally elevated troponins Cardiomyopathy with wall motion abnormalities noted on echocardiogram, status post cardiac catheterization revealing normal coronary arteries with 10-20% plaque in proximal circumflex Myocardial infarction with nonobstructive disease ([place]) Suspected coronary vasospasm Diabetes, uncontrolled, hemoglobin A1c 11.3 Bipolar disorder Marijuana use Nicotine dependence in the form of vaping History of loop recorder insertion in 2011 secondary to recurrent syncope Morbid obesity: BMI 38.3 PLAN: Continue dual antiplatelet therapy with aspirin and Plavix Continue atorvastatin 40 mg at night Decrease lisinopril to 2.5 mg daily Discontinue metoprolol Add Cardizem CD 120 mg daily for suspected vasospasm Add Imdur 30 mg daily Smoking cessation recommended Abstinence from marijuana encourage Further recommendations pending patient's course Continue to monitor patient for an additional 24 hours Nurse practitioner note has been reviewed by physician. Signing provider agrees with the documented findings, assessment, and plan of care. Objective - Vital Signs Vital signs: Vital Signs Temp 98.1 F 09/24/23 08:10 Pulse 72 09/24/23 08:10 Resp 16 09/24/23 08:10 BP 110/74 09/24/23 08:10 Pulse Ox 98 09/24/23 08:10 FiO2 Intake & Output 09/23/23 09/24/23 09/24/23 18:59 06:59 18:59 Intake Total 143.397 240 120 Balance 143.397 240 120 Weight 101.2 kg Intake: IV 100 Intake, IV Titration 43.397 Amount Heparin Sod,Pork in 0.45% 43.397 NaCl 25,000 unit In 0.45 % NaCl 1 250ml.bag @ 10. 02 UNITS/KG/HR 9.999 mls/ hr IV .Q24H LANG Rx#: [id number] Oral 240 120 Other: Voiding Method Toilet Toilet Toilet # Voids 1 - Labs CBC & Chem 7: 09/24/23 08:51 09/24/23 08:51 Labs: Abnormal Lab Results - Last 24 Hours (Table) 09/23/23 09/23/23 09/24/23 Range/Units 16:43 20:43 05:56 Sodium (137-145) mmol/L Carbon Dioxide (22-30) mmol/L BUN (7-17) mg/dL Glucose (74-99) mg/dL POC Glucose (mg/dL) 160 H 136 H 124 H (70-110) mg/dL 09/24/23 09/24/23 Range/Units 08:51 11:53 Sodium 134 L (137-145) mmol/L Carbon Dioxide 21 L (22-30) mmol/L BUN 18 H (7-17) mg/dL Glucose 183 H (74-99) mg/dL POC Glucose (mg/dL) 129 H (70-110) mg/dL
[2023-09-24 17:00] LABS: Glucose,Whole Blood 185 mg/dL (70-110)
[2023-09-24 19:52] LABS: Glucose,Whole Blood 236 mg/dL (70-110)
[2023-09-24] MEDS: ATORVASTATIN 40 MG TAB PO SCH (20:25)
[2023-09-24] MEDS: ALPRAZolam 0.5 MG TAB PO PRN (20:39)
[2023-09-25] MEDS: HYDROmorphone 1 MG/ML 1 ML SYRINGE IVP PRN ×7 (00:58→21:10)
[2023-09-25] MEDS: ALPRAZolam 0.5 MG TAB PO PRN ×2 (01:12→09:06)
[2023-09-25 06:15] LABS: Glucose,Whole Blood 202 mg/dL (70-110)
[2023-09-25] MEDS: INSULIN ASPART (NovoLOG) 100 UNIT/ML VIAL SQ SCH ×4 (06:58→21:13)
[2023-09-25] MEDS: [UNRECOGNIZED DRUG - OTHER] PO SCH (08:49)
[2023-09-25] MEDS: DEXTROAMPHETAMINE PO SCH (08:49)
[2023-09-25] MEDS: AMPHETAMINE PO SCH (08:49)
[2023-09-25] MEDS: lamoTRIgine 25 MG TAB PO SCH (09:00)
[2023-09-25] MEDS: ISOSORBIDE MONONITRATE ER 30 MG TAB.ER.24H PO SCH (09:00)
[2023-09-25] MEDS: DILTIAZEM CD 120 MG CAP.ER.24H PO SCH (09:00)
[2023-09-25] MEDS: PANTOPRAZOLE 40 MG/10 ML VIAL IVP SCH ×2 (09:00→21:12)
[2023-09-25] MEDS: CLOPIDOGREL 75 MG TAB PO SCH (09:00)
[2023-09-25] MEDS: ASPIRIN 81 MG PO SCH (09:00)
[2023-09-25] MEDS: ARIPiprazole 15 MG TAB PO SCH (09:01)
[2023-09-25] MEDS: DAPAGLIFLOZIN PROPANEDIOL 10 MG TABLET PO SCH (09:01)
[2023-09-25] MEDS: HYDROcodone/APAP 5-325MG 1 EACH TAB PO PRN ×3 (11:12→23:51)
[2023-09-25 11:40] LABS: Glucose,Whole Blood 185 mg/dL (70-110)
[2023-09-25] MEDS: methocarbamoL 500 MG TAB PO PRN (12:33)
[2023-09-25] MEDS: ONDANSETRON 4 MG/2 ML VIAL IVP PRN (14:01)
[2023-09-25] MEDS: NITROGLYCERIN SL TABS 0.4 MG TAB SUBLINGUAL PRN ×3 (14:21→14:31)
[2023-09-25] MEDS: LORazepam 1 MG TAB PO PRN ×2 (14:59→23:52)
[2023-09-25 16:52] LABS: Glucose,Whole Blood 187 mg/dL (70-110)
--- NOTE | 2023-09-25 17:34 | XR ---
EXAMINATION TYPE: XR chest 1V portable DATE OF EXAM: 09/25/2023 COMPARISON: 09/22/2023 INDICATION: CHF TECHNIQUE: Single frontal view of the chest is obtained. FINDINGS: The heart size is upper limits for normal. The pulmonary vasculature is normal. The lungs are clear. IMPRESSION: 1. There may be some mild volume overload present.
--- NOTE | 2023-09-25 18:15 | P.PN ---
Subjective Progress Note Date: 09/25/23 SUBJECTIVE: Yesterday after cardiac catheterization patient complained of chest pain. An ECG obtained showed dynamic ST changes which are concerning of spasms in the LAD coronary territory. Her symptoms resolved with sublingual nitroglycerin 2. Due to this we discontinued her metoprolol and started on Cardizem and Imdur. Today she complained of intermittent chest pain and shoulder pain. She was also started on some muscle relaxant medication. The combination of the medical regimen has worked for hilar density of symptoms have reduced. PHYSICAL EXAMINATION Vital signs reviewed. Head: Normocephalic. Eyes: Sclerae nonicteric. Neck: Brisk carotid upstroke, no jugular venous distention. Lungs: Clear to auscultation. Heart: Regular rate and rhythm, S1-S2, no S3, no murmur or rub. Abdomen: Soft nontender, positive bowel sounds no organomegaly. Extremities: No edema, intact distal pulses. ASSESSMENT Dilated cardiomyopathy, EF 30-35%, apical hypokinesia. Likely related to [place] Myocardial infarction with nonobstructive coronary artery disease Vasospastic angina Marijuana use and Vaping History of loop recorder insertion in 2010 secondary to recurrent syncope Morbid obesity: BMI 38.3 Bipolar disorder PLAN Continue current cardiac medications which include aspirin, Plavix, atorvastati n, Imdur, Cardizem, low-dose lisinopril If patient's symptoms are well-controlled tomorrow, she is cleared to be discharged from cardiac vessel standpoint. Outpatient follow-up with Dr. Tamez. Objective - Vital Signs Vital signs: Vital Signs Temp 98.2 F 09/25/23 15:06 Pulse 64 09/25/23 15:06 Resp 20 09/25/23 15:06 BP 115/70 09/25/23 15:06 Pulse Ox 98 09/25/23 15:06 FiO2 Intake & Output 09/24/23 09/25/23 09/25/23 18:59 06:59 18:59 Intake Total 838 1380 Balance 838 1380 Weight 101.2 kg Intake: Oral 838 1380 Other: Voiding Method Toilet Toilet Toilet # Bowel Movements 1 - Labs CBC & Chem 7: 09/24/23 08:51 09/24/23 08:51 Labs: Abnormal Lab Results - Last 24 Hours (Table) 12/11/1609/25/23 09/25/23 Range/Units 19:51 06:13 11:34 POC Glucose (mg/dL) 236 H 202 H 185 H (70-110) mg/dL 09/25/23 Range/Units 16:47 POC Glucose (mg/dL) 187 H (70-110) mg/dL
--- NOTE | 2023-09-25 19:17 | PN ---
PROGRESS NOTE SUBJECTIVE: This is a 48-year-old woman, who was admitted with possible unstable angina. Still is complaining of interscapular pain. At this time, no fever, no cough. PAST MEDICAL HISTORY: Reviewed. REVIEW OF SYSTEMS: A 14-point review is negative except as mentioned earlier. CURRENT MEDICATIONS: Reviewed. PHYSICAL EXAMINATION: VITAL SIGNS: Pulse is 62, blood pressure 119/60, respirations 16. HEENT: Conjunctivae normal. NECK: No jugular venous distention. CARDIOVASCULAR: S1 and S2 muffled. RESPIRATORY: Breath sounds diminished at the bases. ABDOMEN: Soft, nontender. LEGS: No edema. NERVOUS SYSTEM: Nonfocal. LABORATORY DATA: CBC within normal limits. Sodium 134. Rest of the labs are noted. ASSESSMENT: 1. Acute oof-AW-mdyshbv-elevation myocardial infarction, status post cardiac catheterization showing ulcerated plaque of the proximal left circumflex 10% to 20%. 2. Dilated cardiomyopathy, ejection fraction 35% with chronic systolic dysfunction. 3. Persistent scapular pain on the right. 4. Troponin 0.085. 5. Right pulmonary lung nodule. 6. Diabetes mellitus, type 2. 7. Bipolar. 8. History of bariatric surgery. DISCUSSION AND RECOMMENDATIONS: Recommended to continue current management and symptomatic treatment. Otherwise, pain management. Continue the pain medications. We will closely monitor and increase ambulation. We will add Imdur to the current regimen. The patient is on dual antiplatelet treatment and Lipitor. Guarded prognosis. Further recommendations to follow. MMODL / IJN: [id number] /
[2023-09-25 19:39] LABS: Glucose,Whole Blood 193 mg/dL (70-110)
[2023-09-25] MEDS: ATORVASTATIN 40 MG TAB PO SCH (21:12)
[2023-09-26] MEDS: HYDROmorphone 1 MG/ML 1 ML SYRINGE IVP PRN ×7 (00:14→22:00)
[2023-09-26] MEDS: NITROGLYCERIN SL TABS 0.4 MG TAB SUBLINGUAL PRN (04:59)
[2023-09-26] MEDS: HYDROcodone/APAP 5-325MG 1 EACH TAB PO PRN ×4 (05:46→23:25)
[2023-09-26 05:57] LABS: Glucose,Whole Blood 152 mg/dL (70-110)
[2023-09-26] MEDS: INSULIN ASPART (NovoLOG) 100 UNIT/ML VIAL SQ SCH ×4 (06:48→21:03)
[2023-09-26 07:51] LABS: Urine Alcohol Negative (Negative); Urine Barbiturate Negative (Negative); Urine Cocaine Negative (Negative); Urine Methadone Negative (Negative); Urine Opiates Positive (Negative); Urine Phencyclidine Negative (Negative)
[2023-09-26] MEDS: DEXTROAMPHETAMINE PO SCH (07:57)
[2023-09-26] MEDS: AMPHETAMINE PO SCH (07:57)
[2023-09-26] MEDS: [UNRECOGNIZED DRUG - OTHER] PO SCH (07:57)
[2023-09-26] MEDS: DILTIAZEM CD 120 MG CAP.ER.24H PO SCH (08:28)
[2023-09-26] MEDS: ISOSORBIDE MONONITRATE ER 30 MG TAB.ER.24H PO SCH (08:28)
[2023-09-26] MEDS: CLOPIDOGREL 75 MG TAB PO SCH (08:28)
[2023-09-26] MEDS: ASPIRIN 81 MG PO SCH (08:28)
[2023-09-26] MEDS: ARIPiprazole 15 MG TAB PO SCH (08:28)
[2023-09-26] MEDS: lamoTRIgine 25 MG TAB PO SCH (08:28)
[2023-09-26] MEDS: PANTOPRAZOLE 40 MG/10 ML VIAL IVP SCH ×2 (08:28→21:04)
[2023-09-26] MEDS: DAPAGLIFLOZIN PROPANEDIOL 10 MG TABLET PO SCH (08:29)
[2023-09-26] MEDS: LORazepam 1 MG TAB PO PRN ×2 (08:38→16:45)
[2023-09-26 08:41] VITALS: RESP 16
[2023-09-26] MEDS: methocarbamoL 500 MG TAB PO PRN (10:50)
[2023-09-26 11:34] LABS: Glucose,Whole Blood 180 mg/dL (70-110)
[2023-09-26] MEDS: IOPAMIDOL CONTRAST (ORAL USE) VIAL PO PRN ×2 (11:45→12:58)
[2023-09-26 13:33] LABS: Basophils % (A) 1 %; Eosinophils # (A) 0.1 k/uL (0-0.7); Eosinophils % (A) 1 %; HGB 14.1 gm/dL (11.4-16.0); Lymphocytes % (A) 36 %; MCH 28.9 pg (25.0-35.0); MCHC 33.5 g/dL (31.0-37.0); MCV 86.4 fL (80.0-100.0); Mean Platelet Volume 9.2; Monocytes # (A) 0.4 k/uL (0-1.0); Monocytes % (A) 7 %; Neutrophils % (A) 53 %; Platelet Count 205 k/uL (150-450); RBC 4.86 m/uL (3.80-5.40); RDW 12.6 % (11.5-15.5); WBC 5.6 k/uL (3.8-10.6)
[2023-09-26 13:53] LABS: African American GFR (CKD) >90 (>60 ml/min/1.73 sqM); Anion Gap 10 mmol/L; Blood Urea Nitrogen 12 mg/dL (7-17); Calcium 8.8 mg/dL (8.4-10.2); Carbon Dioxide 28 mmol/L (22-30); Chloride 101 mmol/L (98-107); Glucose 132 mg/dL (74-99); Non-African American GFR(CKD) >90 (>60 ml/min/1.73 sqM); Sodium 139 mmol/L (137-145)
[2023-09-26 16:33] LABS: Glucose,Whole Blood 191 mg/dL (70-110)
[2023-09-26] MEDS: ONDANSETRON 4 MG/2 ML VIAL IVP PRN (16:45)
--- NOTE | 2023-09-26 17:09 | CT ---
EXAMINATION TYPE: CT abdomen pelvis wo con CT DLP: 1082.4 mGycm, Automated exposure control for dose reduction was used. DATE OF EXAM: 09/26/2023 2:08 PM COMPARISON: None. CLINICAL INDICATION:Female, 48 years old with history of Hiccups. TECHNIQUE: Axial CT of the abdomen and pelvis. Sagittal and coronal reformats were created on a [employer] workstation. Contrast used: (none if empty) Oral contrast used: with Oral Contrast (none if empty) FINDINGS: LOWER CHEST: Unremarkable ABDOMEN LIVER: Unremarkable GALLBLADDER AND BILE DUCTS: The gallbladder surgically absent. No evidence of biliary duct dilation. PANCREAS: Unremarkable. SPLEEN: Unremarkable. Splenule is noted in the left upper quadrant. ADRENAL GLANDS: Unremarkable. KIDNEYS AND URETERS: No evidence of hydronephrosis or renal calculus. The ureters are unremarkable. PELVIS BLADDER: Unremarkable REPRODUCTIVE: Unremarkable. ABDOMEN & PELVIS STOMACH AND BOWEL: Stomach and duodenum are unremarkable. No evidence of bowel obstruction. PERITONEUM/RETROPERITONEUM: No evidence of pneumoperitoneum or free fluid. VASCULATURE: Mild atherosclerotic calcifications are present throughout the abdominal aorta and its b ranches. No evidence of aortic aneurysm. MUSCULOSKELETAL: No acute osseous abnormalities LYMPH NODES: No gross evidence for lymphadenopathy. SOFT TISSUE/ABDOMINAL WALL: Unremarkable IMPRESSION: No acute process.
--- NOTE | 2023-09-26 19:29 | PN ---
PROGRESS NOTE DATE OF SERVICE: 09/26/2023 SUBJECTIVE: This is a 48-year-old woman, who was admitted with shoulder pain and back pain, had a cardiac catheterization. Currently, the patient is still having some back pain. The most recent chest x-ray which I reviewed personally showed no acute abnormality. The patient is found to have a dilated cardiomyopathy, which is a new diagnosis. PAST MEDICAL HISTORY: Reviewed. REVIEW OF SYSTEMS: Fourteen-point review is negative except as mentioned earlier. CURRENT MEDICATIONS: Reviewed include Ecotrin and Imdur. Doses and rest of the medications are reviewed. PHYSICAL EXAMINATION: VITAL SIGNS: Pulse is 87, blood pressure is 126/91, respirations 16. HEENT: Conjunctivae are normal. NECK: No jugular venous distention. CARDIOVASCULAR: S1 and S2 muffled. RESPIRATORY: Breath sounds diminished at the bases. ABDOMEN: Soft and nontender. LEGS: No edema. NERVOUS SYSTEM: Nonfocal. LABORATORY DATA: Glucose 180. THC is positive. Rest of the labs are noted. ASSESSMENT: 1. Acute osq-FW-piweirj-elevation myocardial infarction, status post cardiac catheterization showing ulcerated plaque of proximal left circumflex, 10% to 20%. 2. Dilated cardiomyopathy, ejection fraction 35% with chronic systolic dysfunction. 3. Persistent interscapular pain on the right. 4. Troponin 0.085. 5. Right pulmonary lung nodule. 6. Diabetes mellitus, type 2. 7. Bipolar. 8. History of bariatric surgery. RECOMMENDATIONS: Recommend to continue current medical management. Continue symptomatic treatment. Otherwise, the patient also had hiccups while in the pain. I would recommend a CT scan of the abdomen and pelvis with p.o. contrast just to ensure there is no intra-abdominal pathology. Otherwise, also recommend Orthopedic evaluation for the back pain and sedimentation rate and CRP. We will continue to monitor. Follow closely with Cardiology. Increase ambulation. Once again, the prognosis is extremely guarded because of multiple complex medical issues. Further recommendations to follow. 2D echo ordered. MMODL / IJN: [id number] /
[2023-09-26 20:08] LABS: Glucose,Whole Blood 173 mg/dL (70-110)
--- NOTE | 2023-09-26 20:09 | P.PN ---
Subjective Progress Note Date: 09/26/23 SUBJECTIVE: Patient is doing well from cardiac vessel standpoint. She did not have any substernal chest pain or chest pressure with the medications she is on at this time. Her blood pressure and heart rate is stable on the current regimen. She continues to report right shoulder pain for which primary team is consulted orthopedics team due to which she is still in the hospital. Patient is demanding to go home with pain medications PHYSICAL EXAMINATION Vital signs reviewed. Head: Normocephalic. Eyes: Sclerae nonicteric. Neck: Brisk carotid upstroke, no jugular venous distention. Lungs: Clear to auscultation. Heart: Regular rate and rhythm, S1-S2, no S3, no murmur or rub. Abdomen: Soft nontender, positive bowel sounds no organomegaly. Extremities: No edema, intact distal pulses. ASSESSMENT Dilated cardiomyopathy, EF 30-35%, apical hypokinesia. Likely related to [place] Myocardial infarction with nonobstructive coronary artery disease Vasospastic angina Marijuana use and Vaping History of loop recorder insertion in 2010 secondary to recurrent syncope Morbid obesity: BMI 38.3 Bipolar disorder PLAN Continue current cardiac medications which include aspirin, Plavix, atorvastatin, Imdur, Cardizem, low-dose lisinopril Patient's cardiac symptoms are well controlled. She is stable to be discharged from cardiac standpoint. She is awaiting orthopedic consult for right shoulder pain. I don't feel this right shoulder pain is cardiac related as this did not get relieved with nitroglycerin but her substernal chest pain and back pain did. Outpatient follow-up with Dr. Tamez. Objective - Vital Signs Vital signs: Vital Signs Temp 97.6 F 09/26/23 15:21 Pulse 83 09/26/23 15:21 Resp 16 09/26/23 15:21 BP 121/88 09/26/23 15:21 Pulse Ox 98 09/26/23 15:21 FiO2 Intake & Output 09/26/23 09/26/23 09/27/23 06:59 18:59 06:59 Intake Total 240 Balance 240 Intake: Oral 240 Other: Voiding Method Toilet Toilet # Voids 2 - Labs CBC & Chem 7: 09/26/23 12:55 09/26/23 12:55 Labs: Abnormal Lab Results - Last 24 Hours (Table) 09/25/23 09/26/2309/26/23 Range/Units 17:04 05:56 11:32 Glucose (74-99) mg/dL POC Glucose (mg/dL) 152 H 180 H (70-110) mg/dL Urine Opiates Screen Positive A (Negative) U Cannabinoids Screen Positive A (Negative) 09/26/23 09/26/23 Range/Units 12:55 16:32 Glucose 132 H (74-99) mg/dL POC Glucose (mg/dL) 191 H (70-110) mg/dL Urine Opiates Screen (Negative) U Cannabinoids Screen (Negative)
[2023-09-26] MEDS: IBUPROFEN 400 MG TAB PO PRN (21:03)
[2023-09-26] MEDS: ATORVASTATIN 40 MG TAB PO SCH (21:03)
[2023-09-27] MEDS: LORazepam 1 MG TAB PO PRN (02:13)
[2023-09-27] MEDS: HYDROmorphone 1 MG/ML 1 ML SYRINGE IVP PRN ×3 (02:13→10:07)
[2023-09-27] MEDS: HYDROcodone/APAP 5-325MG 1 EACH TAB PO PRN ×2 (05:44→12:05)
[2023-09-27 06:18] LABS: Glucose,Whole Blood 119 mg/dL (70-110)
[2023-09-27] MEDS: INSULIN ASPART (NovoLOG) 100 UNIT/ML VIAL SQ SCH ×2 (06:43→12:35)
[2023-09-27] MEDS: ARIPiprazole 15 MG TAB PO SCH (08:47)
[2023-09-27] MEDS: DILTIAZEM CD 120 MG CAP.ER.24H PO SCH (08:47)
[2023-09-27] MEDS: DAPAGLIFLOZIN PROPANEDIOL 10 MG TABLET PO SCH (08:47)
[2023-09-27] MEDS: ISOSORBIDE MONONITRATE ER 30 MG TAB.ER.24H PO SCH (08:47)
[2023-09-27] MEDS: ASPIRIN 81 MG PO SCH (08:47)
[2023-09-27] MEDS: CLOPIDOGREL 75 MG TAB PO SCH (08:47)
[2023-09-27] MEDS: lamoTRIgine 25 MG TAB PO SCH (08:47)
--- NOTE | 2023-09-27 08:47 | P.CNOR ---
History of Present Illness - [facility] Consult date: 09/27/23 Requesting physician: Samm Hobson Consult reason: joint pain (Right shoulder pain) History of present illness: Patient is a pleasant 48-year-old female who is seen and examined at the bedside for further evaluation of right shoulder pain. She had presented to [facility] for shortness of breath with pain at her right shoulder on 09/22/2023. She states she did not have any pain at her right shoulder prior to that date. Since that time she has continued to have intermittent significant pain towards her right shoulder. She has good active range of motion of her right shoulder. She denies any cervical pain. She denies any upper extremity weakness or radiculopathy bilaterally. She feels the pain stays in her right shoulder. She does not have any pain with palpation over the right shoulder. She does not have any erythema, bruising, or swelling over the right shoulder. She is not currently complaining of any neck pain. She denies any injuries or difficulty with her shoulder in the past. She states the severity of pain can vary for no particular reason. Currently she is comfortable at the bedside. Patient underwent significant evaluation with cardiology during her admission including echocardiogram and cardiac catheterization. She had abnormal normal troponins at presentation. He was diagnosed with dilated cardiomyopathy, vasospastic angina, and myocardial infarction with nonobstructive coronary artery disease. He does have a history of loop recorder insertion 2010 secondary to recurrent syncope. Cardiology feels her symptoms are well controlled and is clear for discharge from the cardiac standpoint. I do not feel her pain is from a cardiac standpoint. She will follow up with cardiology outpatient. Patient does not have any other complaints at the bedside. Patient is being seen by medicine and cardiology. Patient's other medical diagnoses include diabetes mellitus which she states is controlled, obesity, nicotine dependence with vaping, bipolar disorder, and history of marijuana use. Single view chest x-ray was performed in which right shoulder joint is partially visualized and appears to have adequate joint space with no obvious dislocation. I did not visualize obvious mid upper thoracic compression fracture deformity. Past Medical History Past Medical History: Diabetes Mellitus History of Any Multi-Drug Resistant Organisms: None Reported Past Surgical History: Bariatric Surgery, Cholecystectomy Past Psychological History: Bipolar Smoking Status: Current every day smoker, Vaper Past Alcohol Use History: Rare Past Drug Use History: Marijuana Medications and Allergies Home Medications Medication Instructions Recorded Confirmed Type ARIPiprazole [Abilify] 22.5 mg PO DAILY 09/22/23 09/22/23 History Dextroamphetamine/Amphetamine 25 mg PO DAILY 09/22/23 09/22/23 History [Adderall Xr 25 mg Capsule] lamoTRIgine [LaMICtal] 50 mg PO DAILY 09/22/23 09/22/23 History traZODone HCL 150 mg PO HS PRN 09/22/23 09/22/23 History Aspirin 81 mg PO DAILY #30 tab 09/27/23 Rx Atorvastatin [Lipitor] 40 mg PO HS #30 tab 09/27/23 Rx Clopidogrel [Plavix] 75 mg PO DAILY #30 tab 09/27/23 Rx Dapagliflozin Propanediol [Farxiga] 10 mg PO DAILY #30 tab 09/27/23 Rx Diltiazem Cd [Cardizem CD] 120 mg PO DAILY #30 cap 09/27/23 Rx HYDROcodone/APAP 5-325MG [[place] 1 each PO Q6HR PRN #3 tab 09/27/23 Rx 5-325] Isosorbide Mononitrate ER [Imdur] 30 mg PO DAILY #30 tab 09/27/23 Rx Nitroglycerin Sl Tabs [Nitrostat] 0.4 mg SUBLINGUAL Q5M PRN #20 tab 09/27/23 Rx lisinopriL [Zestril] 2.5 mg PO DAILY #30 tab 09/27/23 Rx methocarbamoL [Robaxin] 500 mg PO TID PRN #30 tab 09/27/23 Rx predniSONE See Taper PO DIRECTED #24 tab 09/27/23 Rx traMADol HCl [Ultram] 50 mg PO Q6H PRN #12 tab 09/27/23 Rx Allergies Allergy/AdvReac Type Severity Reaction Status Date / Time metformin AdvReac Diarrhea Verified 09/22/23 11:06 Physical Examination Osteopathic Statement: *. No significant issues noted on an osteopathic structural exam other than those noted in the History and Physical/Consult. Physical exam: Patient is awake, alert, and oriented 3 Vital signs stable Good chest excursion with deep inspiration and expiration Examination of the cervical spine reveals skin is intact with no abrasions, lacerations, or bruises; no erythema, purulence or signs of infection Evidence of a tattoo the posterior inferior cervical spine Full range of motion of the cervical spine with adequate flexion, extension, and bilateral rotation Router Operator Pin strength, thumb strength, interosseous strength, biceps strength, triceps strength, and shoulder strength positive sustained bilaterally Upper extremity strength 5/5 bilaterally Biceps reflex 2+ bilaterally and Brachioradialis reflexes 1+ bilaterally No upper extremity hyperreflexia bilaterally Hoffmans sign negative upper extremity bilaterally No signs or symptoms of DVT; no calf pain No pain with palpation over the right shoulder Patient is able to perform good active range of motion of the right shoulder independently without difficulty No erythema, bruising, swelling, or obvious sign of infection at the right shoulder Results Pertinent studies: Chest x-ray performed on 09/25/2023 reviewed for orthopedic purposes: Right shoulder joint is partially visualized and appears to have adequate joint space with no obvious dislocation. I did not visualize obvious mid upper thoracic compression fracture deformity. - Labs Labs: Abnormal Lab Results - Last 24 Hours (Table) 09/26/23 09/26/23 09/26/23 Range/Units 11:32 12:55 16:32 Glucose 132 H (74-99) mg/dL POC Glucose (mg/dL) 180 H 191 H (70-110) mg/dL 09/26/23 09/27/23 Range/Units 20:07 06:14 Glucose (74-99) mg/dL POC Glucose (mg/dL) 173 H 119 H (70-110) mg/dL H & H 09/22/23 09/23/23 09/24/23 Range/Units 08:50 04:07 08:51 Hgb 17.7 H 15.1 13.7 (11.4-16.0) gm/dL Hct 53.6 H 46.1 H 41.8 (34.0-46.0) % 09/26/23 Range/Units 12:55 Hgb 14.1 (11.4-16.0) gm/dL Hct 42.0 (34.0-46.0) % Coagulation 09/22/23 09/23/23 Range/Units 08:50 04:07 INR 0.9 1.0 (<1.2) Result Diagrams: 09/26/23 12:55 09/26/23 12:55 Assessment and Plan Assessment: Assessment: Right shoulder pain 6 days without injury Dilated cardiomyopathy Myocardial infarction with nonobstructive coronary artery disease Vasospastic angina History of marijuana use Diabetes mellitus, controlled Bipolar disorder Nicotine dependence with vaping Obesity History of loop recorder placement in 2011 secondary to recurrent syncope (1) Dilated cardiomyopathy Status: Acute Code(s): I42.0 - DILATED CARDIOMYOPATHY SNOMED Code(s): 509572841 (2) History of marijuana use Status: Acute Code(s): F12.91 - CANNABIS USE, UNSPECIFIED, IN REMISSION SNOMED Code(s): 812575523 (3) Nicotine use Status: Acute Code(s): Z72.0 - TOBACCO USE SNOMED Code(s): 109309255 (4) Obesity Status: Acute Code(s): E66.9 - OBESITY, UNSPECIFIED SNOMED Code(s): 646812213 (5) Diabetes mellitus Status: Acute Code(s): E11.9 - TYPE 2 DIABETES MELLITUS WITHOUT COMPLICATIONS SNOMED Code(s): 21779592 (6) History of loop recorder Status: Acute Code(s): Z98.890 - OTHER SPECIFIED POSTPROCEDURAL STATES SNOMED Code(s): 810814045 (7) Shoulder pain Status: Acute Code(s): M25.519 - PAIN IN UNSPECIFIED SHOULDER SNOMED Code(s): 44712342 Plan: Plan: 1. She had presented to [facility] for shortness of breath with pain at her right shoulder on 09/22/2023. She states she did not have any pain at her right shoulder prior to that date. Since that time she has continued to have intermittent significant pain towards her right shoulder. She has good active range of motion of her right shoulder. She denies any cervical pain. She denies any upper extremity weakness or radiculopathy bilaterally. She feels the pain stays in her right shoulder. She does not have any pain with palpation over the right shoulder. She does not have any erythema, bruising, or swelling over the right shoulder. She is not currently complaining of any neck pain. She denies any injuries or difficulty with her shoulder in the past. Is difficult to determine the exact cause of her symptoms. She does not experience any cervical pain, upper extremity weakness, or upper extremity radiculopathy. She is neurovascularly intact. She does not have any upper extremity hyperreflexia. She has good range of motion of the right shoulder without exacerbation of pain at her shoulder with range of motion. The pain is at rest. The intensity of the pain varies. Visualized right shoulder joint on chest x-ray imaging does not show dislocation and joint spacing appears to be adequately maintained. Patient is not in any acute distress at the bedside. Her pain is currently well managed. She states when exacerbated, her pain is difficult to manage. Due to her significant intermittent pain into the right shoulder, we will currently planned to treat her conservatively with medications. She'll be given a prescription for a prednisone 10 mg taper and tramadol 50 mg, 1 tab, 4 times a day, dispensed #12. He presented to the [facility] located within [facility]. MAPS has been reviewed today, 09/27/2023, with an Overall Overdose Risk Score of 260. It was discussed with nursing that we would plan to prescribe a steroid taper as long as she is cleared to take his medication per medicine. We will currently planned to clear her for discharge from an orthopedic standpoint. We'll plan to have her follow up in approximately 2 weeks for further evaluation. If her symptoms return to her baseline we would continue with conservative treatment as needed. If her symptoms do not improve, we could consider further imaging in regards to either her cervical spine and/or right shoulder. Patient feels this is a good plan of care and would like to proceed forward with this plan of care. She is hopeful for discharge today. 2. Patient will continue to be seen and examined by medicine for her other medical diagnoses. 3. Patient has been cleared for discharge by cardiology and will follow-up outpatient. Had been able to review the case and imaging studies. It is difficult to determine the exact nature of her symptoms over her right shoulder. Her neck and extremities to be doing adequately without any evidence of neurovascular compromise or defect. She's going to continue conservative management with tapering steroid course and pain medications. She is continuing her other medical management and we can follow her up for outpatient basis. Time with Patient: Greater than 30 (Including obtaining history, physical examination, reviewing of imaging, and dictation.)
[2023-09-27] MEDS: DEXTROAMPHETAMINE PO SCH (08:56)
[2023-09-27] MEDS: PANTOPRAZOLE 40 MG/10 ML VIAL IVP SCH (08:56)
[2023-09-27] MEDS: AMPHETAMINE PO SCH (08:56)
[2023-09-27] MEDS: [UNRECOGNIZED DRUG - OTHER] PO SCH (08:56)
[2023-09-27] MEDS: ONDANSETRON 4 MG/2 ML VIAL IVP PRN (10:11)
[2023-09-27 10:50] VITALS: TEMP 97.8
[2023-09-27 11:19] LABS: Glucose,Whole Blood 226 mg/dL (70-110)
[2023-09-27 12:48] VITALS: BP 134/65; PULSE 90
--- NOTE | 2023-09-27 12:53 | P.PN ---
Subjective Progress Note Date: 09/27/23 SUBJECTIVE: Patient is doing well from cardiac vessel standpoint. She did not have any substernal chest pain or chest pressure with the medications she is on at this time. Her blood pressure and heart rate is stable on the current regimen. She continues to report right shoulder pain for which primary team is consulted orthopedics team due to which she is still in the hospital. Patient is demanding to go home with pain medications 09/27 She is seen today in follow-up. She states she has had the same chronic chest pain on and off and no new change to this. She has ambulated in her room without any worsening of symptoms. Heart rate is in the 70s and 90s, blood pressure 1 3465, pulse ox 90% on room air. Patient has been started on Cardizem for vasospastic disease. PHYSICAL EXAMINATION Vital signs reviewed. Head: Normocephalic. Eyes: Sclerae nonicteric. Neck: Brisk carotid upstroke, no jugular venous distention. Lungs: Clear to auscultation. Heart: Regular rate and rhythm, S1-S2, no S3, no murmur or rub. Abdomen: Soft nontender, positive bowel sounds no organomegaly. Extremities: No edema, intact distal pulses. ASSESSMENT Dilated cardiomyopathy, EF 30-35%, apical hypokinesia. Likely related to [place] Myocardial infarction with nonobstructive coronary artery disease Vasospastic angina Marijuana use and Vaping History of loop recorder insertion in 2010 secondary to recurrent syncope Morbid obesity: BMI 38.3 Bipolar disorder PLAN Continue current cardiac medications which include aspirin, Plavix, atorvastatin, Imdur, Cardizem, low-dose lisinopril Patient is cleared for discharge from cardiology. Outpatient follow-up with Dr. Tamez. Nurse practitioner note has been reviewed, I agree with the documented findings and plan of care. Patient was seen and examined. Objective - Vital Signs Vital signs: Vital Signs Temp 97.9 F 09/26/23 20:00 Pulse 77 09/27/23 04:00 Resp 16 09/27/23 04:00 BP 127/73 09/27/23 04:00 Pulse Ox 98 09/27/23 04:00 FiO2 Intake & Output 09/26/23 09/27/23 09/27/23 18:59 06:59 18:59 Intake Total 240 Balance 240 Intake: Oral 240 Other: Voiding Method Toilet Toilet # Voids 2 2 - Labs CBC & Chem 7: 09/26/23 12:55 09/26/23 12:55 Labs: Abnormal Lab Results - Last 24 Hours (Table) 09/26/23 09/26/23 09/26/23 Range/Units 11:32 12:55 16:32 Glucose 132 H (74-99) mg/dL POC Glucose (mg/dL) 180 H 191 H (70-110) mg/dL 09/26/23 09/27/23 Range/Units 20:07 06:14 Glucose (74-99) mg/dL POC Glucose (mg/dL) 173 H 119 H (70-110) mg/dL
--- NOTE | 2023-09-29 09:26 | P.DS ---
Providers Date of admission: 09/22/23 11:07 Expected date of discharge: 09/27/23 Attending physician: Samm Hobson Consults: 09/22/23 11:07 Consult Physician Urgent Consulting Provider: [facility] Consult Reason/Comments: nstemi Do you want consulting provider notified?: Yes 09/26/23 10:56 Consult Physician Routine Consulting Provider: Ace Miranda Consult Reason/Comments: upper back pain Do you want consulting provider notified?: Yes Primary care physician: Stated None Hospital Course: Final diagnosis Acute NSTEMI , status post cardiac catheterization showing ulcerated plaque of proximal left circumflex 10-20% Dilated cardiomyopathy, EF 35% with chronic systolic dysfunction Persistent intrascapular pain on the right Troponin 0.085 Right pulmonary lung nodule, will need outpatient follow-up Diabetes mellitus, type II History of bipolar History of bariatric surgery Continued ongoing nicotine dependence Obesity with a BMI 38.3 GI prophylaxis DVT prophylaxis Full code Discharge disposition Patient is being discharged in a stable condition with guarded prognosis to home. Patient will follow-up with Dr. Leonardo oHbson to establish in the outpat ient setting upon discharge as scheduled for next wednesday. Patient is to continue with current cardiac medications and close outpatient follow-up with cardiology as well as orthopedics as scheduled. Total time taken is greater than 35 minutes. Hospital course This is a 48-year-old female who was recently admitted with right shoulder pain and chest pain in closely monitored and underwent cardiac catheterization and was found to have dilated cardiomyopathy recommending maximizing medical management and close outpatient follow-up. Patient reports she currently does not have a primary care provider and Dr. Leonardo Hobson's office was called and patient will follow-up with Dr. Calix next week Wednesday as scheduled to establish and then will follow-up with Dr. Lambert. Patient also been instructed to follow-up with cardiology closely in the next 1-2 weeks and continue current medications as mentioned below. Patient was seen and evaluated by orthopedics for right shoulder pain and was started on a prednisone taper recommending outpatient follow-up. Patient with significant pain with likely benefit from pain management as well. Referrals will be provided. Please refer to the consultation notes for further HPI. Currently no reports of chest pain, shortness of breath, or palpitations. Patient is afebrile. No reports of nausea or vomiting and patient is tolerating diet. Patient will be discharged home today. Guarded prognosis and high risk for readmission given patient's comorbidities and continued pain. Physical exam: Gen: This is a 48-year-old female who is awake, alert and oriented 3, well- developed, well-nourished, obese HEENT: Head is atraumatic, normocephalic. Pupils equal, round. Sclerae is anicteric. NECK: Supple. No JVD. No lymphadenopathy. No thyromegaly. LUNGS: Clear to auscultation. No wheezes or rhonchi. No intercostal retractions. HEART: Regular rate and rhythm. No murmur. ABDOMEN: Soft. Bowel sounds are present. No masses. No tenderness. EXTREMITIES: No pedal edema. No calf tenderness. NEUROLOGICAL: Patient is awake, alert and oriented x3. Cranial nerves 2 through 12 are grossly intact. Please refer to medication reconciliation sheet for a list of medications. The impression and plan of care has been dictated by Deloris Leija, Nurse Practitioner as directed. Dr. Joce MD I have performed a history and examination and MDM of this patient, discussed the same with the dictator, and agree with the dictator's assessment and plan as written ,documented as a scribe. Based on total visit time, I have performed more than 50% of the visit. Patient Condition at Discharge: Fair Plan - Discharge Summary Discharge Rx Participant: Yes New Discharge Prescriptions: New predniSONE See Taper PO DIRECTED #24 tab Aspirin 81 mg PO DAILY #30 tab Dapagliflozin Propanediol [Farxiga] 10 mg PO DAILY #30 tab Isosorbide Mononitrate ER [Imdur] 30 mg PO DAILY #30 tab Atorvastatin [Lipitor] 40 mg PO HS #30 tab lisinopriL [Zestril] 2.5 mg PO DAILY #30 tab traMADol HCl [Ultram] 50 mg PO Q6H PRN #12 tab PRN Reason: Pain Diltiazem Cd [Cardizem CD] 120 mg PO DAILY #30 cap Nitroglycerin Sl Tabs [Nitrostat] 0.4 mg SUBLINGUAL Q5M PRN #20 tab PRN Reason: Chest Pain HYDROcodone/APAP 5-325MG [[place] 5-325] 1 each PO Q6HR PRN #3 tab PRN Reason: Pain Clopidogrel [Plavix] 75 mg PO DAILY #30 tab methocarbamoL [Robaxin] 500 mg PO TID PRN #30 tab PRN Reason: Muscle Spasm Continue Dextroamphetamine/Amphetamine [Adderall Xr 25 mg Capsule] 25 mg PO DAILY lamoTRIgine [LaMICtal] 50 mg PO DAILY ARIPiprazole [Abilify] 22.5 mg PO DAILY traZODone HCL 150 mg PO HS PRN PRN Reason: Insomnia Discharge Medication List ARIPiprazole [Abilify] 22.5 mg PO DAILY 09/22/23 [History] Dextroamphetamine/Amphetamine [Adderall Xr 25 mg Capsule] 25 mg PO DAILY 09/22/23 [History] lamoTRIgine [LaMICtal] 50 mg PO DAILY 09/22/23 [History] traZODone HCL 150 mg PO HS PRN 09/22/23 [History] Aspirin 81 mg PO DAILY #30 tab 09/27/23 [Rx] Atorvastatin [Lipitor] 40 mg PO HS #30 tab 09/27/23 [Rx] Clopidogrel [Plavix] 75 mg PO DAILY #30 tab 09/27/23 [Rx] Dapagliflozin Propanediol [Farxiga] 10 mg PO DAILY #30 tab 09/27/23 [Rx] Diltiazem Cd [Cardizem CD] 120 mg PO DAILY #30 cap 09/27/23 [Rx] HYDROcodone/APAP 5-325MG [[place] 5-325] 1 each PO Q6HR PRN #3 tab 09/27/23 [Rx] Isosorbide Mononitrate ER [Imdur] 30 mg PO DAILY #30 tab 09/27/23 [Rx] Nitroglycerin Sl Tabs [Nitrostat] 0.4 mg SUBLINGUAL Q5M PRN #20 tab 09/27/23 [Rx] lisinopriL [Zestril] 2.5 mg PO DAILY #30 tab 09/27/23 [Rx] methocarbamoL [Robaxin] 500 mg PO TID PRN #30 tab 09/27/23 [Rx] predniSONE See Taper PO DIRECTED #24 tab 09/27/23 [Rx] traMADol HCl [Ultram] 50 mg PO Q6H PRN #12 tab 09/27/23 [Rx] Follow up Appointment(s)/Referral(s): Jorge Tamez MD [Medical Doctor] - 1 Week Kiba,Bridger, PAC [PHYSICIAN APPAREL DESIGNER] - 2 Weeks (Patient may follow-up with Bridger Dennis PA-C or Dr. Umberto Miranda at [facility] in 2-3 weeks following discharge. ) Ariadna Lambert MD [STAFF PHYSICIAN] - 1 Week (appointment scheduled for oct 06 (wednesday) 9:[address] Calix and will later establish with Dr. Rosenthal) Activity/Diet/Wound Care/Special Instructions: Follow-up with primary care provider to establish Continue taking medications as prescribed Follow-up with orthopedics outpatient Follow-up with cardiology outpatient in 1-2 weeks Discharge/Stand Alone Forms: Area PCPs Discharge Disposition: HOME SELF-CARE
== END 2023-09-27 14:45 | disposition home or self-care (01) | DRG 281 ==
LOC: EC 08:12 → 3SCARD 11:07
PROVIDERS: ADMIT Hospitalist; ATTEND Hospitalist
PROC: 4A023N7 Measurement of Cardiac Sampling and Pressure, Left Heart, Percutaneous Approach (ICD-10-PCS; principal; 2023-09-23 09:25)
PROC: B2111ZZ Fluoroscopy of Multiple Coronary Arteries using Low Osmolar Contrast (ICD-10-PCS; 2023-09-23 09:25)
DX: I21.B Myocardial infarction with coronary microvascular dysfunction (principal); I42.0 Dilated cardiomyopathy; I50.22 Chronic systolic (congestive) heart failure; I25.110 Atherosclerotic heart disease of native coronary artery with unstable angina pectoris; E66.01 Morbid (severe) obesity due to excess calories; R91.1 Solitary pulmonary nodule; R31.9 Hematuria, unspecified; Z98.84 Bariatric surgery status; Z91.199 Patient's noncompliance with other medical treatment and regimen due to unspecified reason; M25.511 Pain in right shoulder; F31.9 Bipolar disorder, unspecified; I49.3 Ventricular premature depolarization; I08.1 Rheumatic disorders of both mitral and tricuspid valves; Z68.38 Body mass index [BMI] 38.0-38.9, adult; Z95.818 Presence of other cardiac implants and grafts
CPT/HCPCS: 36415; 71045; 71046; 71275; 74176; 76937; 80048; 80053; 80306; 83036; 83605; 84484; 85025; 85379; 85610; 85652; 85730; 86140; 87635; 93005; 93306; 93458; 96365; 96366; 96375; 96376; 99291

== ENCOUNTER 2023-10-03 18:29 | Emergency (ER) | payer MEDICARE ==
--- NOTE | 2023-10-03 18:41 | ED ---
Recheck HPI - General Source: patient, family, RN notes reviewed <Raysa Barfield - Last Filed: 10/03/23 18:40> <Bridger Vo - Last Filed: 10/03/23 23:02> - General Stated Complaint: high sugar level 451 Time Seen by Provider: 10/03/23 18:40 - History of Present Illness Initial Comments: Patient is a 48-year-old female presented ER chief complaint of hyperglycemia. Patient states her blood 450s. She endorses right shoulder pain denies any fevers or chills. (Raysa Barfield) 48 Old female with a past medical history significant for type 2 diabetes presents to the ED with a chief complaint of medication problem. Patient states that she was recently prescribed farxiga states she charts began up however when she went to pick it up realized that she could not afford it. Due to this, patient reports over the past few days has had a little bit more trouble c ontrolling her blood sugars. Reports some nausea no vomiting no abdominal pain. No chest pain or shortness of breath. No other complaints. (Bridger Vo) - Related Data Home Medications Medication Instructions Recorded Confirmed ARIPiprazole [Abilify] 22.5 mg PO DAILY 09/22/23 09/22/23 Dextroamphetamine/Amphetamine 25 mg PO DAILY 09/22/23 09/22/23 [Adderall Xr 25 mg Capsule] lamoTRIgine [LaMICtal] 50 mg PO DAILY 09/22/23 09/22/23 traZODone HCL 150 mg PO HS PRN 09/22/23 09/22/23 Previous Rx's Medication Instructions Recorded Aspirin 81 mg PO DAILY #30 tab 09/27/23 Atorvastatin [Lipitor] 40 mg PO HS #30 tab 09/27/23 Clopidogrel [Plavix] 75 mg PO DAILY #30 tab 09/27/23 Dapagliflozin Propanediol [Farxiga] 10 mg PO DAILY #30 tab 09/27/23 Diltiazem Cd [Cardizem CD] 120 mg PO DAILY #30 cap 09/27/23 HYDROcodone/APAP 5-325MG [[place] 1 each PO Q6HR PRN #3 tab 09/27/23 5-325] Isosorbide Mononitrate ER [Imdur] 30 mg PO DAILY #30 tab 09/27/23 Nitroglycerin Sl Tabs [Nitrostat] 0.4 mg SUBLINGUAL Q5M PRN #20 tab 09/27/23 lisinopriL [Zestril] 2.5 mg PO DAILY #30 tab 09/27/23 methocarbamoL [Robaxin] 500 mg PO TID PRN #30 tab 09/27/23 predniSONE See Taper PO DIRECTED #24 tab 09/27/23 traMADol HCl [Ultram] 50 mg PO Q6H PRN #12 tab 09/27/23 Insulin Regular [HumuLIN R] 1 - 6 units SQ ACHS #10 ml 10/03/23 Allergies Allergy/AdvReac Type Severity Reaction Status Date / Time metformin AdvReac Diarrhea Verified 10/03/23 18:50 Review of Systems ROS Other: All systems not noted in ROS Statement are negative. <Raysa Barfield - Last Filed: 10/03/23 18:40> ROS Other: All systems not noted in ROS Statement are negative. <Bridger Vo - Last Filed: 10/03/23 23:02> ROS Statement: Those systems with pertinent positive or pertinent negative responses have been documented in the HPI. Past Medical History Past Medical History: Diabetes Mellitus History of Any Multi-Drug Resistant Organisms: None Reported Past Surgical History: Bariatric Surgery, Cholecystectomy Past Psychological History: Bipolar Smoking Status: Current every day smoker, Vaper Past Alcohol Use History: Rare Past Drug Use History: Marijuana <Raysa Barfield - Last Filed: 10/03/23 18:40> General Exam <Raysa Barfield - Last Filed: 10/03/23 18:40> General appearance: alert, in no apparent distress Eye exam: Present: normal appearance Neck exam: Present: normal inspection Respiratory exam: Present: normal lung sounds bilaterally Cardiovascular Exam: Present: regular rate GI/Abdominal exam: Present: soft (No tenderness to palpation. No rebound guarding or rigidity.) Neurological exam: Present: alert Skin exam: Present: warm <Bridger Vo - Last Filed: 10/03/23 23:02> - General Exam Comments Initial Comments: Visual Physical Exam Vital signs reviewed General: Well-appearing, nontoxic, no acute distress. Head: Normocephalic, atraumatic Eyes: PERRLA, EOMI ENT: Airway patent Chest: Nonlabored breathing Skin: No visual rash, normal skin tone Neuro: Alert and oriented 3 Musculoskeletal: No gross abnormalities (Raysa Barfield) Course Vital Signs 10/03/23 10/03/23 18:45 22:37 Temperature 98.8 F Pulse Rate 101 H 79 Respiratory 20 18 Rate Blood Pressure 140/87 120/78 O2 Sat by Pulse 97 98 Oximetry Medical Decision Making <Raysa Barfield - Last Filed: 10/03/23 18:40> - Lab Data Result diagrams: 10/03/23 18:39 10/03/23 18:39 <Bridger Vo - Last Filed: 10/03/23 23:02> - Medical Decision Making I performed the quick note portion of the exam. Electronically signed by Raysa Barfield PA-C (Raysa Barfield) Was pt. sent in by a medical professional or institution (JEF Rojas, COMPOSITOR APPRENTICE, urgent care, hospital, or assisted...) When possible be specific @ -No Did you speak to anyone other than the patient for history (EMS, parent, family, police, friend...)? What history was obtained from this source @ -No Did you review nursing and triage notes (agree or disagree)? Why? @ -I reviewed and agree with nursing and triage notes Were old charts reviewed (outside hosp., previous admission, EMS record, old EKG, old radiological studies, urgent care reports/EKG's, assisted records)? Report findings @ -No old charts were reviewed Differential Diagnosis (chest pain, altered mental status, abdominal pain women, abdominal pain men, vaginal bleeding, weakness, fever, dyspnea, syncope, headache, dizziness, GI bleed, back pain, seizure, CVA, palpatations, mental health, musculoskeletal)? @ -Differential Abdominal Pain Women: Appendicitis, Cholecystitis, diverticulosis, ischemic bowel, pancreatitis, hepatitis, UTI, gastroenteritis, AAA, incarcerated hernia, bowel obstruction, constipation, inflammatory bowel, hepatitis, peptic ulcer disease, splenic infarction, perforated viscus, vulvitis, ovarian torsion, PID, kidney stone, placenta abruption, this is not meant to be an all-inclusive list EKG interpreted by me (3pts min.). @ -As above X-rays interpreted by me (1pt min.). @ -None done CT interpreted by me (1pt min.). @ -None done U/S interpreted by me (1pt. min.). @ -None done What testing was considered but not performed or refused? (CT, X-rays, U/S, labs)? Why? @ -None What meds were considered but not given or refused? Why? @ -None Did you discuss the management of the patient with other professionals (professionals i.e. DrDayanna, PA, COMPOSITOR APPRENTICE, lab, RT, psych nurse, social worker assistant, stock analyst, teacher, safety officer, watch caser)? Give summary @ -No Was smoking cessation discussed for >3mins.? @ -No Was critical care preformed (if so, how long)? @ -No Were there social determinants of health that impacted care today? How? (Homelessness, low income, unemployed, alcoholism, drug addiction, tr ansportation, low edu. Level, literacy, decrease access to med. care, [facility], rehab)? @ -No Was there de-escalation of care discussed even if they declined (Discuss DNR or withdrawal of care, Hospice)? DNR status @ -No What co-morbidities impacted this encounter? (DM, HTN, Smoking, COPD, CAD, Cancer, CVA, ARF, Chemo, Hep., AIDS, mental health diagnosis, sleep apnea, morbid obesity)? @ -Type 2 diabetes Was patient admitted / discharged? Hospital course, mention meds given and route, prescriptions, significant lab abnormalities, going to OR and other pertinent info. @ -Discharge 48-year-old female presenting to the ED secondary to being unable to afford SGLT 2 inhibitor. Reports success with insulin in the past and is familiar with its use and asked to be prescribed insulin. Provided prescription for insulin. Advises careful monitoring of her blood sugars and advised following up as scheduled with her primary care provider in 2 days. Time, vital signs stable afebrile. No evidence of DKA. Discharged home in stable condition. Discussed return precautions patient who verbalizes agreement. Undiagnosed new problem with uncertain prognosis? @ -No Drug Therapy requiring intensive monitoring for toxicity (Heparin, Nitro, Insulin, Cardizem)? @ -No Were any procedures done? @ -No Diagnosis/symptom? @ -Medication problem Acute, or Chronic, or Acute on Chronic? @ -Acute Uncomplicated (without systemic symptoms) or Complicated (systemic symptoms)? @ -Uncomplicated Side effects of treatment? @ -No Exacerbation, Progression, or Severe Exacerbation? @ -No Poses a threat to life or bodily function? How? (Chest pain, USA, [place], pneumonia, PE, COPD, DKA, ARF, appy, cholecystitis, CVA, Diverticulitis, Homicidal, Suicidal, threat to staff... and all critical care pts) @ -No (Bridger Vo) - Lab Data Lab Results 10/03/23 10/03/23 Range/Units 18:39 18:39 WBC 13.7 H (3.8-10.6) k/uL RBC 5.31 (3.80-5.40) m/uL Hgb 15.2 (11.4-16.0) gm/dL Hct 46.1 H (34.0-46.0) % MCV 86.8 (80.0-100.0) fL MCH 28.6 (25.0-35.0) pg MCHC 32.9 (31.0-37.0) g/dL RDW 13.4 (11.5-15.5) % Plt Count 323 (150-450) k/uL MPV 8.7 Sodium 133 L (137-145) mmol/L Potassium 4.9 (3.5-5.1) mmol/L Chloride 100 (98-107) mmol/L Carbon Dioxide 20 L (22-30) mmol/L Anion Gap 13 mmol/L BUN 25 H (7-17) mg/dL Creatinine 0.84 (0.52-1.04) mg/dL Est GFR (CKD-EPI)AfAm >90 (>60 ml/min/1.73 sqM) Est GFR (CKD-EPI)NonAf 81 (>60 ml/min/1.73 sqM) Glucose 384 H (74-99) mg/dL Calcium 9.9 (8.4-10.2) mg/dL Total Bilirubin 0.4 (0.2-1.3) mg/dL AST 24 (14-36) U/L ALT 24 (4-34) U/L Alkaline Phosphatase 79 (38-126) U/L Total Protein 7.2 (6.3-8.2) g/dL Albumin 4.4 (3.5-5.0) g/dL Disposition <Stariha,Raysa - Last Filed: 10/03/23 18:40> Is patient prescribed a controlled substance at d/c from ED?: No Time of Disposition: 23:02 <Bridger Vo - Last Filed: 10/03/23 23:02> Clinical Impression: Patient's intentional underdosing of medication regimen due to financial hardship, Type 2 diabetes mellitus Disposition: HOME SELF-CARE Condition: Good Instructions (If sedation given, give patient instructions): Insulin Regular (By injection) Additional Instructions: Please return to the Emergency Department if symptoms worsen or any other concerns. Follow up with your primary care provider as scheduled. Prescriptions: Insulin Regular [HumuLIN R] 1 - 6 units SQ ACHS #10 ml Referrals: None,Stated [Primary Care Provider] - 1-2 days
[2023-10-03 19:07] VITALS: TEMP 98.8
[2023-10-03] MEDS ORDERED: ONDANSETRON ODT 4 MG TAB PO STA (20:28)
[2023-10-03 20:55] LABS: HCT 46.1 % (34.0-46.0); HGB 15.2 gm/dL (11.4-16.0); MCH 28.6 pg (25.0-35.0); MCHC 32.9 g/dL (31.0-37.0); MCV 86.8 fL (80.0-100.0); Mean Platelet Volume 8.7; Platelet Count 323 k/uL (150-450); RBC 5.31 m/uL (3.80-5.40); RDW 13.4 % (11.5-15.5); WBC 13.7 k/uL (3.8-10.6)
[2023-10-03 21:08] LABS: ALT 24 U/L (4-34); AST 24 U/L (14-36); African American GFR (CKD) >90 (>60 ml/min/1.73 sqM); Albumin 4.4 g/dL (3.5-5.0); Alkaline Phosphatase 79 U/L (38-126); Anion Gap 13 mmol/L; Blood Urea Nitrogen 25 mg/dL (7-17); Calcium 9.9 mg/dL (8.4-10.2); Carbon Dioxide 20 mmol/L (22-30); Chloride 100 mmol/L (98-107); Glucose 384 mg/dL (74-99); Non-African American GFR(CKD) 81 (>60 ml/min/1.73 sqM); Potassium 4.9 mmol/L (3.5-5.1); Sodium 133 mmol/L (137-145); Total Bilirubin 0.4 mg/dL (0.2-1.3); Total Protein 7.2 g/dL (6.3-8.2)
[2023-10-03 22:51] VITALS: BP 120/78; PULSE 79; RESP 18
[2023-10-04 06:22] LABS: Glucose,Whole Blood 305 mg/dL (70-110)
== END 2023-10-03 23:39 | disposition home or self-care (01) ==
LOC: EC 18:29
DX: E11.65 Type 2 diabetes mellitus with hyperglycemia (principal); T38.3X6A Underdosing of insulin and oral hypoglycemic [antidiabetic] drugs, initial encounter; F17.290 Nicotine dependence, other tobacco product, uncomplicated; F31.9 Bipolar disorder, unspecified; Z91.128 Patient's intentional underdosing of medication regimen for other reason; Z79.899 Other long term (current) drug therapy; Z88.8 Allergy status to other drugs, medicaments and biological substances
CPT/HCPCS: 36415; 80053; 85027; 99283

== ENCOUNTER 2023-12-01 10:04 | Observation (INO) | payer MEDICARE ==
[2023-12-01 10:14] VITALS: TEMP 97.8
--- NOTE | 2023-12-01 10:25 | ED ---
General Adult HPI - General Chief complaint: Chest Pain Stated complaint: Chest Pain Time Seen by Provider: 12/01/23 10:12 Source: patient, RN notes reviewed, old records reviewed Mode of arrival: ambulatory Limitations: no limitations - History of Present Illness Initial comments: 48-year-old female history of CAD presenting with chest discomfort, nausea. Patient has known CAD. She had heart catheterization in August 2023. No stent placement. She had ulcerated plaque formation. She is on medical management. She states her blood sugars have been high and she continues to smoke. She has had intermittent symptoms over the past several months. She was sent by primary care today for evaluation. - Related Data Home Medications Medication Instructions Recorded Confirmed ARIPiprazole [Abilify] 22.5 mg PO DAILY 09/22/23 09/22/23 Dextroamphetamine/Amphetamine 25 mg PO DAILY 09/22/23 09/22/23 [Adderall Xr 25 mg Capsule] lamoTRIgine [LaMICtal] 50 mg PO DAILY 09/22/23 09/22/23 traZODone HCL 150 mg PO HS PRN 09/22/23 09/22/23 Previous Rx's Medication Instructions Recorded Aspirin 81 mg PO DAILY #30 tab 09/27/23 Atorvastatin [Lipitor] 40 mg PO HS #30 tab 09/27/23 Clopidogrel [Plavix] 75 mg PO DAILY #30 tab 09/27/23 Dapagliflozin Propanediol [Farxiga] 10 mg PO DAILY #30 tab 09/27/23 Diltiazem Cd [Cardizem CD] 120 mg PO DAILY #30 cap 09/27/23 HYDROcodone/APAP 5-325MG [[place] 1 each PO Q6HR PRN #3 tab 09/27/23 5-325] Isosorbide Mononitrate ER [Imdur] 30 mg PO DAILY #30 tab 09/27/23 Nitroglycerin Sl Tabs [Nitrostat] 0.4 mg SUBLINGUAL Q5M PRN #20 tab 09/27/23 lisinopriL [Zestril] 2.5 mg PO DAILY #30 tab 09/27/23 methocarbamoL [Robaxin] 500 mg PO TID PRN #30 tab 09/27/23 predniSONE See Taper PO DIRECTED #24 tab 09/27/23 traMADol HCl [Ultram] 50 mg PO Q6H PRN #12 tab 09/27/23 Insulin Regular [humuLIN R] 1 - 6 units SQ ACHS #10 ml 10/03/23 Allergies Allergy/AdvReac Type Severity Reaction Status Date / Time metformin AdvReac Diarrhea Verified 12/01/23 10:10 Review of Systems ROS Statement: Those systems with pertinent positive or pertinent negative responses have been documented in the HPI. ROS Other: All systems not noted in ROS Statement are negative. Past Medical History Past Medical History: Diabetes Mellitus History of Any Multi-Drug Resistant Organisms: None Reported Past Surgical History: Bariatric Surgery, Cholecystectomy Past Psychological History: Bipolar Smoking Status: Current every day smoker, Vaper Past Alcohol Use History: Rare Past Drug Use History: Marijuana General Exam Limitations: no limitations General appearance: alert, in no apparent distress Head exam: Present: atraumatic, normocephalic Eye exam: Present: normal appearance, PERRL ENT exam: Present: normal exam Neck exam: Present: normal inspection. Absent: tenderness, meningismus Respiratory exam: Present: normal lung sounds bilaterally. Absent: respiratory distress, wheezes Cardiovascular Exam: Present: regular rate, normal rhythm GI/Abdominal exam: Present: soft. Absent: distended, tenderness Extremities exam: Present: normal inspection, normal capillary refill Neurological exam: Present: alert, oriented X3, CN II-XII intact. Absent: motor sensory deficit Psychiatric exam: Present: normal affect, normal mood Skin exam: Present: warm, dry, intact Course Vital Signs 12/01/23 10:06 Temperature 97.8 F Pulse Rate 81 Respiratory 18 Rate Blood Pressure 122/77 O2 Sat by Pulse 100 Oximetry Medical Decision Making - Medical Decision Making Was pt. sent in by a medical professional or institution (, PA, CUTTER FINISHER, urgent care, hospital, or senior living...) When possible be specific @ -No Did you speak to anyone other than the patient for history (EMS, parent, family, police, friend...)? What history was obtained from this source @ -No Did you review nursing and triage notes (agree or disagree)? Why? @ -I reviewed and agree with nursing and triage notes Were old charts reviewed (outside hosp., previous admission, EMS record, old EKG, old radiological studies, urgent care reports/EKG's, senior living records)? Report findings @ -No old charts were reviewed Differential Diagnosis (chest pain, altered mental status, abdominal pain women, abdominal pain men, vaginal bleeding, weakness, fever, dyspnea, syncope, headache, dizziness, GI bleed, back pain, seizure, CVA, palpatations, mental health, musculoskeletal)? @ -[Differential Chest Pain: Stable Angina, Unstable Angina, STEMI, NSTEMI Aortic Dissection, Pneumothorax, Musculoskeletal, Esophageal Spasm GERD, Cholecystitis, Pancreatitis, Zoster, this is not meant to be an all-inclusive list. EKG interpreted by me (3pts min.). @ -Sinus rhythm rate of 79, FL interval 152, QRS duration 97, QTc [address] segment elevation. T wave flattening. X-rays interpreted by me (1pt min.). @ -Chest x-ray negative for acute cardiopulmonary findings. CT interpreted by me (1pt min.). @ -None done U/S interpreted by me (1pt. min.). @ -None done What testing was considered but not performed or refused? (CT, X-rays, U/S, labs)? Why? @ -None What meds were considered but not given or refused? Why? @ -None Did you discuss the management of the patient with other professionals (professionals i.e. , PA, CUTTER FINISHER, lab, RT, psych nurse, social work instructor, meteorological observer, teacher, safety officer, correctional case records supervisor)? Give summary @ -[ Sheet Was smoking cessation discussed for >3mins.? @ -No Was critical care preformed (if so, how long)? @ -No Were there social determinants of health that impacted care today? How? (Kofi elessness, low income, unemployed, alcoholism, drug addiction, transportation, low edu. Level, literacy, decrease access to med. care, long term, rehab)? @ -No Was there de-escalation of care discussed even if they declined (Discuss DNR or withdrawal of care, Hospice)? DNR status @ -No What co-morbidities impacted this encounter? (DM, HTN, Smoking, COPD, CAD, Cancer, CVA, ARF, Chemo, Hep., AIDS, mental health diagnosis, sleep apnea, morbid obesity)? @ -Diabetes, CAD Was patient admitted / discharged? Hospital course, mention meds given and route, prescriptions, significant lab abnormalities, going to OR and other pertinent info. @ -[48-year-old female with intermittent chest pain over the past several months, worse today. Patient has EKG showing sinus rhythm without ST segment changes. Chest x-ray is clear. She has normal CBC, normal CMP, negative initial troponin. She will be kept in observation for serial cardiac enzymes, telemetry, cardiology consultation. Undiagnosed new problem with uncertain prognosis? @ -No Drug Therapy requiring intensive monitoring for toxicity (Heparin, Nitro, Insulin, Cardizem)? @ -No Were any procedures done? @ -No Diagnosis/symptom? @ -[Chest pain rule out Acute, or Chronic, or Acute on Chronic? @ -Acute on chronic Uncomplicated (without systemic symptoms) or Complicated (systemic symptoms)? @ -Default Side effects of treatment? @ -No Exacerbation, Progression, or Severe Exacerbation? @ -No Poses a threat to life or bodily function? How? (Chest pain, [place], [place], pneumonia, PE, COPD, DKA, ARF, appy, cholecystitis, CVA, Diverticulitis, Homicidal, Suicidal, threat to staff... and all critical care pts) @ -[Yes, chest pain - Lab Data Result diagrams: 12/01/23 10:28 12/01/23 11:52 Lab Results 12/01/23 12/01/23 12/01/23 Range/Units 10:28 10:28 11:52 WBC 8.4 (3.8-10.6) k/uL RBC 5.11 (3.80-5.40) m/uL Hgb 14.9 (11.4-16.0) gm/dL Hct 45.2 (34.0-46.0) % MCV 88.5 (80.0-100.0) fL MCH 29.1 (25.0-35.0) pg MCHC 32.9 (31.0-37.0) g/dL RDW 13.5 (11.5-15.5) % Plt Count 278 (150-450) k/uL MPV 8.2 Neutrophils % 64 % Lymphocytes % 26 % Monocytes % 6 % Eosinophils % 2 % Basophils % 1 % Neutrophils # 5.4 (1.3-7.7) k/uL Lymphocytes # 2.2 (1.0-4.8) k/uL Monocytes # 0.5 (0-1.0) k/uL Eosinophils # 0.2 (0-0.7) k/uL Basophils # 0.1 (0-0.2) k/uL PT 10.5 (10.0-12.5) sec INR 0.9 (<1.2) APTT 26.0 (22.0-30.0) sec Sodium 137 (137-145) mmol/L Potassium 4.1 (3.5-5.1) mmol/L Chloride 107 (98-107) mmol/L Carbon Dioxide 25 (22-30) mmol/L Anion Gap 5 mmol/L BUN 15 (7-17) mg/dL Creatinine 0.53 (0.52-1.04) mg/dL Est GFR (CKD-EPI)AfAm >90 (>60 ml/min/1.73 sqM) Est GFR (CKD-EPI)NonAf >90 (>60 ml/min/1.73 sqM) Glucose 163 H (74-99) mg/dL Calcium 9.0 (8.4-10.2) mg/dL Magnesium 1.9 (1.6-2.3) mg/dL Total Bilirubin 0.7 (0.2-1.3) mg/dL AST 25 (14-36) U/L ALT 14 (4-34) U/L Alkaline Phosphatase 81 (38-126) U/L Troponin I (0.000-0.034) ng/mL NT-Pro-B Natriuret Pep 258 pg/mL Total Protein 6.1 L (6.3-8.2) g/dL Albumin 3.7 (3.5-5.0) g/dL Lipase 93 (23-300) U/L 12/01/23 Range/Units 11:52 WBC (3.8-10.6) k/uL RBC (3.80-5.40) m/uL Hgb (11.4-16.0) gm/dL Hct (34.0-46.0) % MCV (80.0-100.0) fL MCH (25.0-35.0) pg MCHC (31.0-37.0) g/dL RDW (11.5-15.5) % Plt Count (150-450) k/uL MPV Neutrophils % % Lymphocytes % % Monocytes % % Eosinophils % % Basophils % % Neutrophils # (1.3-7.7) k/uL Lymphocytes # (1.0-4.8) k/uL Monocytes # (0-1.0) k/uL Eosinophils # (0-0.7) k/uL Basophils # (0-0.2) k/uL PT (10.0-12.5) sec INR (<1.2) APTT (22.0-30.0) sec Sodium (137-145) mmol/L Potassium (3.5-5.1) mmol/L Chloride (98-107) mmol/L Carbon Dioxide (22-30) mmol/L Anion Gap mmol/L BUN (7-17) mg/dL Creatinine (0.52-1.04) mg/dL Est GFR (CKD-EPI)AfAm (>60 ml/min/1.73 sqM) Est GFR (CKD-EPI)NonAf (>60 ml/min/1.73 sqM) Glucose (74-99) mg/dL Calcium (8.4-10.2) mg/dL Magnesium (1.6-2.3) mg/dL Total Bilirubin (0.2-1.3) mg/dL AST (14-36) U/L ALT (4-34) U/L Alkaline Phosphatase (38-126) U/L Troponin I <0.012 (0.000-0.034) ng/mL NT-Pro-B Natriuret Pep pg/mL Total Protein (6.3-8.2) g/dL Albumin (3.5-5.0) g/dL Lipase (23-300) U/L Disposition Clinical Impression: Diabetes mellitus, Chest pain Disposition: ADMITTED IP TO THIS HOSP Condition: Stable Is patient prescribed a controlled substance at d/c from ED?: No Referrals: Ariadna Lambert MD [Primary Care Provider] - 1-2 days Time of Disposition: 12:30
[2023-12-01] MEDS: ONDANSETRON 4 MG/2 ML VIAL IVP STA (10:37)
[2023-12-01] MEDS: ASPIRIN 325 MG TAB PO STA (10:37)
[2023-12-01 10:56] LABS: Basophils # (A) 0.1 k/uL (0-0.2); Basophils % (A) 1 %; Eosinophils # (A) 0.2 k/uL (0-0.7); Eosinophils % (A) 2 %; HCT 45.2 % (34.0-46.0); HGB 14.9 gm/dL (11.4-16.0); Lymphocytes # (A) 2.2 k/uL (1.0-4.8); Lymphocytes % (A) 26 %; MCH 29.1 pg (25.0-35.0); MCHC 32.9 g/dL (31.0-37.0); MCV 88.5 fL (80.0-100.0); Mean Platelet Volume 8.2; Monocytes # (A) 0.5 k/uL (0-1.0); Monocytes % (A) 6 %; Neutrophils # (A) 5.4 k/uL (1.3-7.7); Neutrophils % (A) 64 %; Platelet Count 278 k/uL (150-450); RBC 5.11 m/uL (3.80-5.40); RDW 13.5 % (11.5-15.5); WBC 8.4 k/uL (3.8-10.6)
--- NOTE | 2023-12-01 10:58 | XR ---
EXAMINATION TYPE: XR chest 2V DATE OF EXAM: 12/01/2023 10:49 AM CLINICAL INDICATION:Female, 48 years old with history of Chest Pain; [facility] COMPARISON: Chest radiographs from 09/25/2023 TECHNIQUE: XR chest 2V Frontal and lateral views of the chest. FINDINGS: Lungs/Pleura: There is no evidence of pleural effusion, focal consolidation, or pneumothorax. Pulmonary vascularity: Unremarkable. Heart/mediastinum: Cardiomediastinal silhouette is unremarkable. A loop recorder projects over the le ft thorax over the heart. Musculoskeletal: No acute osseous pathology. Other findings: None IMPRESSION: No acute cardiopulmonary disease/process.
[2023-12-01 11:36] LABS: INR 0.9 (<1.2); Prothrombin Time 10.5 sec (10.0-12.5)
[2023-12-01 12:06] LABS: ALT 14 U/L (4-34); AST 25 U/L (14-36); African American GFR (CKD) >90 (>60 ml/min/1.73 sqM); Albumin 3.7 g/dL (3.5-5.0); Alkaline Phosphatase 81 U/L (38-126); Anion Gap 5 mmol/L; Blood Urea Nitrogen 15 mg/dL (7-17); Carbon Dioxide 25 mmol/L (22-30); Chloride 107 mmol/L (98-107); Glucose 163 mg/dL (74-99); Lipase 93 U/L (23-300); Magnesium 1.9 mg/dL (1.6-2.3); Non-African American GFR(CKD) >90 (>60 ml/min/1.73 sqM); Potassium 4.1 mmol/L (3.5-5.1); Sodium 137 mmol/L (137-145); Total Bilirubin 0.7 mg/dL (0.2-1.3); Total Protein 6.1 g/dL (6.3-8.2)
[2023-12-01 12:15] LABS: NT-Pro-B-Type Natriuretic Pept 258 pg/mL
[2023-12-01] MEDS ORDERED: NALOXONE 0.4 MG/ML 1 ML VIAL IV PRN (12:27)
[2023-12-01] MEDS: MORPHINE SULFATE 4 MG/ML SYRINGE IM STA (12:51)
[2023-12-01] MEDS ORDERED: NITROGLYCERIN SL TABS 0.4 MG TAB SUBLINGUAL PRN (14:08)
--- NOTE | 2023-12-01 14:08 | P.CRDCN ---
History of Present Illness Consult date: 12/01/23 Consult reason: chest pain History of present illness: History of present illness: This is a 48-year-old female patient of Dr. Tamez with past medical history of mild nonobstructive coronary artery disease, obesity, diabetes mellitus type 2 insulin requiring uncontrolled with A1c of 11, tobacco use and dependence. We have been asked to evaluate the patient for chest pain. Patient had a recent hospitalization in August 2023 at which time she underwent cardiac catheterization with Dr. Tamez. She has had a follow-up appointment on in the office with plan for smoking cessation, follow-up echocardiogram. Patient feels that her echocardiogram is scheduled for this week. Patient had a follow-up appointment with her PCP regarding diabetes and at the appointment mention that she has chest pain. Patient was advised to go directly to the emergency center for midsternal chest pain that Went also to her right shoulder blade. She experienced nausea with this. It felt like a heaviness and a started this morning around 8 AM. It woke her from sleep. 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 She continues to smoke but has switched to vaping. She denies having any dizziness, no palpitations, no lower extremity edema. No cough or wheezing. She noticed that the pain worsened when she lifted her arms for chest x-ray. Patient also has shortness of breath when the pain becomes more than 6/10. Shortness of breath is better when the pain is relieved. Patient denies palpitations. Patient is seen today in the emergency center waiting for bed on the observation unit. Also patient took 2 nitroglycerin at home sublingually with no change in her pain. EKG sinus rhythm no acute ST changes. Chest x-ray: No acute process CBC, INR, electrolytes and renal function within normal limits. Blood sugar 163. Troponin negative x 1. proBNP 258. Liver function test are normal. Home cardiac medications: Echocardiogram performed on 09/22/2023 revealed moderate to severe LV systolic dysfunction with EF of 35 to 40% with inferior wall hypokinesis secondary to prior myocardial infarction. Mild mitral regurgitation. Cardiac catheterization performed in 09/22/[address] Tamez revealed ulcerated plaque in proximal left circumflex 10 to 20%. Myocardial infarction with nonobstructive disease. Normal LVEDP. Dilated cardiomyopathy with LVEF 35% by echo. Inferior and inferior apical wall motion abnormality. Review Of Systems: At the time of my exam: CONSTITUTIONAL: Denies fever or chills. HEENT: Denies blurred vision, vision changes, or eye pain. Denies hemoptysis CARDIOVASCULAR: Reports chest pain. Denies orthopnea. Denies PND. Denies palpitations RESPIRATORY: Reports shortness of breath. GASTROINTESTINAL: Denies abdominal pain. Denies nausea or vomiting. HEMATOLOGIC: Denies bleeding disorders. GENITOURINARY: Denies any blood in urine. SKIN: Denies pruitis. Denies rash. Physical examination: Gen: This is a morbidly obese 48-year-old female. She appears to be in no acute distress. VS: reviewed HEENT: Head is atraumatic, normocephalic. Pupils equal, round. Sclerae is anicteric. NECK: Supple. No JVD. LUNGS: Clear to auscultation. No wheezes or rhonchi. No intercostal ret ractions. HEART: Regular rate and rhythm. No murmur. ABDOMEN: Soft No tenderness. EXTREMITIES: No pedal edema. No calf tenderness. NEUROLOGICAL: Patient is awake, alert and oriented x3. Assessment: Chest pain of unclear etiology Mild nonobstructive coronary artery disease Diabetes mellitus type 2 insulin requiring uncontrolled with A1c of 11 Tobacco use dependence currently vaping Plan: Resume patient's home cardiac medications Complete 3 troponins Obtain limited 2-D echocardiogram and Doppler study Further recommendations to follow based upon clinical course Thank you kindly for this consultation. Nurse practitioner note has been reviewed, I agree with documented findings and plan of care. Patient was seen and examined. Past Medical History Past Medical History: Diabetes Mellitus History of Any Multi-Drug Resistant Organisms: None Reported Past Surgical History: Bariatric Surgery, Cholecystectomy Past Psychological History: Bipolar Smoking Status: Current every day smoker, Vaper Past Alcohol Use History: Rare Past Drug Use History: Marijuana Medications and Allergies Home Medications Medication Instructions Recorded Confirmed Type ARIPiprazole [Abilify] 22.5 mg PO DAILY 09/22/23 12/01/23 History lamoTRIgine [LaMICtal] 50 mg PO DAILY 09/22/23 12/01/23 History traZODone HCL 150 mg PO HS PRN 09/22/23 12/01/23 History Aspirin 81 mg PO DAILY #30 tab 09/27/23 12/01/23 Rx Atorvastatin [Lipitor] 40 mg PO HS #30 tab 09/27/23 12/01/23 Rx Clopidogrel [Plavix] 75 mg PO DAILY #30 tab 09/27/23 12/01/23 Rx Diltiazem Cd [Cardizem CD] 120 mg PO DAILY #30 cap 09/27/23 12/01/23 Rx Isosorbide Mononitrate ER [Imdur] 30 mg PO DAILY #30 tab 09/27/23 12/01/23 Rx lisinopriL [Zestril] 2.5 mg PO DAILY #30 tab 09/27/23 12/01/23 Rx Insulin Aspart [NovoLOG Flexpen] See Protocol SQ AC-TID 12/01/23 12/01/23 History Insulin Glargine,Hum.rec.anlog 25 units SQ HS 12/01/23 12/01/23 History [Lantus Solostar Pen] Nitroglycerin Sl Tabs [Nitrostat] 0.4 mg SUBLINGUAL Q5M PRN 12/01/23 12/01/23 History Allergies Allergy/AdvReac Type Severity Reaction Status Date / Time metformin AdvReac Diarrhea Verified 12/01/23 10:10 Physical Exam Vitals: Vital Signs Temp Pulse Resp BP Pulse Ox 12/01/23 12:31 68 16 120/85 99 12/01/23 10:06 97.8 F 81 18 122/77 100 Intake and Output 11/30/23 12/01/23 12/01/23 22:59 06:59 14:59 Other: Weight 110.223 kg Results 12/01/23 10:28 12/01/23 11:52 Cardiac Enzymes 12/01/23 12/01/23 Range/Units 11:52 11:52 AST 25 (14-36) U/L Troponin I <0.012 (0.000-0.034) ng/mL Coagulation 12/01/23 Range/Units 10:28 PT 10.5 (10.0-12.5) sec APTT 26.0 (22.0-30.0) sec CBC 12/01/23 Range/Units 10:28 WBC 8.4 (3.8-10.6) k/uL RBC 5.11 (3.80-5.40) m/uL Hgb 14.9 (11.4-16.0) gm/dL Hct 45.2 (34.0-46.0) % Plt Count 278 (150-450) k/uL Comprehensive Metabolic Panel 12/01/23 Range/Units 11:52 Sodium 137 (137-145) mmol/L Potassium 4.1 (3.5-5.1) mmol/L Chloride 107 (98-107) mmol/L Carbon Dioxide 25 (22-30) mmol/L BUN 15 (7-17) mg/dL Creatinine 0.53 (0.52-1.04) mg/dL Glucose 163 H (74-99) mg/dL Calcium 9.0 (8.4-10.2) mg/dL AST 25 (14-36) U/L ALT 14 (4-34) U/L Alkaline Phosphatase 81 (38-126) U/L Total Protein 6.1 L (6.3-8.2) g/dL Albumin 3.7 (3.5-5.0) g/dL Current Medications Generic Name Dose Route Start Last Admin Trade Name Freq PRN Reason Stop Dose Admin Naloxone HCl 0.2 mg 12/01/23 12:27 Naloxone 0.4 Mg/Ml 1 Ml Vial IV Q2M PRN Opioid Reversal Intake and Output 11/30/23 12/01/23 12/01/23 22:59 06:59 14:59 Other: Weight 110.223 kg Patient Weight 12/02/23 06:59 Weight 110.223 kg 12/01/23 10:28 12/01/23 11:52
[2023-12-01] MEDS: DILTIAZEM ORAL 60 MG TAB PO STA (17:10)
[2023-12-01] MEDS: RANOLAZINE 500 MG TAB.ER.12H PO SCH (17:10)
[2023-12-01 17:35] VITALS: RESP 20
[2023-12-01] MEDS ORDERED: METOCLOPRAMIDE 5 MG/ML 2 ML VIAL IVP PRN (18:19)
[2023-12-01] MEDS ORDERED: ACETAMINOPHEN TAB 325 MG TAB PO PRN (18:31)
--- NOTE | 2023-12-01 18:32 | P.HPIM ---
History of Present Illness This is a pleasant 48 years old female with past medical history of diabetes mellitus. Her PCP is Dr. hidalgo, home health speech therapist is Dr. Dimas She presents because of chest pain of one-day duration is started this morning at 8:00. It was about 6/10 in severity now better with pain medication, located centrally radiating to the right shoulder blade plate like pressure and increase by lifting arm with no relieving factors She has some nausea but no vomiting She denies dyspnea or coughing She denies urinary or GI symptoms. No headache weakness numbness or confusion She thinks nicotine and she was counseled to quit and she agrees to the nicotine patch Occasional alcohol no illicit drugs. She is hemodynamically stable She has unremarkable CBC, INR, BMP, liver enzymes. Troponin is -0.012. Chest x-ray is negative for acute process EKG is sinus rhythm at [address]-T changes and QTC 392 Review of Systems Review of systems CONSTITUTIONAL: No fever, no malaise, no fatigue. HEENT: No recent visual problems or hearing problems. Denied any sore throat. CARDIOVASCULAR: No orthopnea, PND, no palpitations, no syncope. PULMONARY: No shortness of breath, no cough, no hemoptysis. GASTROINTESTINAL: No diarrhea, no nausea, no vomiting, no abdominal pain. Normoactive bowel sounds. NEUROLOGICAL: No headaches, no weakness, no numbness. HEMATOLOGICAL: Denies any bleeding or petechiae. GENITOURINARY: Denies any burning micturition, frequency, or urgency. MUSCULOSKELETAL/RHEUMATOLOGICAL: Denies any joint pain, swelling, or any muscle pain. ENDOCRINE: Denies any polyuria or polydipsia. Past Medical History Past Medical History: Diabetes Mellitus History of Any Multi-Drug Resistant Organisms: None Reported Past Surgical History: Bariatric Surgery, Cholecystectomy Past Psychological History: Bipolar Smoking Status: Current every day smoker, Vaper Past Alcohol Use History: Rare Past Drug Use History: Marijuana Medications and Allergies Home Medications Medication Instructions Recorded Confirmed Type ARIPiprazole [Abilify] 22.5 mg PO DAILY 09/22/23 12/01/23 History lamoTRIgine [LaMICtal] 50 mg PO DAILY 09/22/23 12/01/23 History traZODone HCL 150 mg PO HS PRN 09/22/23 12/01/23 History Aspirin 81 mg PO DAILY #30 tab 09/27/23 12/01/23 Rx Atorvastatin [Lipitor] 40 mg PO HS #30 tab 09/27/23 12/01/23 Rx Clopidogrel [Plavix] 75 mg PO DAILY #30 tab 09/27/23 12/01/23 Rx Diltiazem Cd [Cardizem CD] 120 mg PO DAILY #30 cap 09/27/23 12/01/23 Rx Isosorbide Mononitrate ER [Imdur] 30 mg PO DAILY #30 tab 09/27/23 12/01/23 Rx lisinopriL [Zestril] 2.5 mg PO DAILY #30 tab 09/27/23 12/01/23 Rx Insulin Aspart [NovoLOG Flexpen] See Protocol SQ AC-TID 12/01/23 12/01/23 History Insulin Glargine,Hum.rec.anlog 25 units SQ HS 12/01/23 12/01/23 History [Lantus Solostar Pen] Nitroglycerin Sl Tabs [Nitrostat] 0.4 mg SUBLINGUAL Q5M PRN 12/01/23 12/01/23 History Allergies Allergy/AdvReac Type Severity Reaction Status Date / Time metformin AdvReac Diarrhea Verified 12/01/23 10:10 Physical Exam Vitals: Vital Signs Temp Pulse Resp BP Pulse Ox 12/01/23 12:31 68 16 120/85 99 12/01/23 10:06 97.8 F 81 18 122/77 100 Intake and Output 11/30/23 12/01/23 12/01/23 22:59 06:59 14:59 Other: Weight 110.223 kg GENERAL: The patient is alert and oriented x3, not in any acute distress. Well developed, well nourished. HEENT: Pupils are round and equally reacting to light. EOMI. No scleral icterus. No conjunctival pallor. Normocephalic, atraumatic. No pharyngeal erythema. No thyromegaly. CARDIOVASCULAR: S1 and S2 present. No murmurs, rubs, or gallops. PULMONARY: Chest is clear to auscultation, no wheezing , no crackles. ABDOMEN: Soft, nontender, nondistended, normoactive bowel sounds. No palpable organomegaly. MUSCULOSKELETAL: No joint swelling or deformity. EXTREMITIES: No cyanosis, clubbing, or pedal edema. NEUROLOGICAL: Gross neurological examination did not reveal any focal deficits. SKIN: No rashes. no petechiae. Results CBC & Chem 7: 12/01/23 10:28 12/01/23 11:52 Labs: Abnormal Lab Results - Last 24 Hours (Table) 12/01/23 Range/Units 11:52 Glucose 163 H (74-99) mg/dL Total Protein 6.1 L (6.3-8.2) g/dL Assessment and Plan Assessment: Chest pain, rule out cardiac causes. Diabetes mellitus Obesity with BMI of 40.4 Nicotine dependence Plan: We'll do serial troponins Cardiology consult Continue with aspirin pain management Labs and medication were reviewed.. Continue same treatment. Continue with symptomatic treatment. Resume home medication. Monitor labs and vitals. DVT and GI prophylaxis. Further recommendations as per clinical course of the patient DVT prophylaxis: Subcutaneous heparin GI Prophylaxis: Pepcid Prognosis is guarded
[2023-12-01] MEDS: ACETAMINOPHEN TAB 325 MG TAB PO STA (19:15)
[2023-12-01] MEDS: NICOTINE 21MG/24HR PATCH TRANSDERM SCH (19:15)
[2023-12-01 19:45] VITALS: BP 110/51; PULSE 84
[2023-12-01] MEDS ORDERED: HEPARIN SODIUM,PORCINE 5,000 UNIT/ML 1 ML VIAL SQ SCH (21:00)
[2023-12-01] MEDS ORDERED: FAMOTIDINE 20 MG/2 ML VIAL IV SCH (21:00)
[2023-12-01] MEDS ORDERED: ATORVASTATIN 40 MG TAB PO SCH (21:00)
[2023-12-01] MEDS ORDERED: RANOLAZINE 500 MG TAB.ER.12H PO SCH (21:00)
--- NOTE | 2023-12-01 21:24 | P.DS ---
Providers Date of admission: 12/01/23 12:28 Attending physician: Michael Solorio MD Consults: 12/01/23 12:27 Consult Physician Routine Consulting Provider: Jorge Tamez Consult Reason/Comments: CP Do you want consulting provider notified?: Yes Primary care physician: [facility] Course: Please note patient was not discharged but left AMA It looks like patient left AMA before I have a chance to see the patient TO her again Based upon my evaluation patient has capacity to make medical decision. Please refer for H&P from today for more details Patient Condition at Discharge: Stable Plan - Discharge Summary New Discharge Prescriptions: No Action Aspirin 81 mg PO DAILY #30 tab Isosorbide Mononitrate ER [Imdur] 30 mg PO DAILY #30 tab Atorvastatin [Lipitor] 40 mg PO HS #30 tab lisinopriL [Zestril] 2.5 mg PO DAILY #30 tab Insulin Aspart [NovoLOG Flexpen] See Protocol SQ AC-TID Insulin Glargine,Hum.rec.anlog [Lantus Solostar Pen] 25 units SQ HS lamoTRIgine [LaMICtal] 50 mg PO DAILY ARIPiprazole [Abilify] 22.5 mg PO DAILY traZODone HCL 150 mg PO HS PRN PRN Reason: Insomnia Diltiazem Cd [Cardizem CD] 120 mg PO DAILY #30 cap Clopidogrel [Plavix] 75 mg PO DAILY #30 tab Nitroglycerin Sl Tabs [Nitrostat] 0.4 mg SUBLINGUAL Q5M PRN PRN Reason: Chest Pain Discharge Medication List ARIPiprazole [Abilify] 22.5 mg PO DAILY 09/22/23 [History] lamoTRIgine [LaMICtal] 50 mg PO DAILY 09/22/23 [History] traZODone HCL 150 mg PO HS PRN 09/22/23 [History] Aspirin 81 mg PO DAILY #30 tab 09/27/23 [Rx] Atorvastatin [Lipitor] 40 mg PO HS #30 tab 09/27/23 [Rx] Clopidogrel [Plavix] 75 mg PO DAILY #30 tab 09/27/23 [Rx] Diltiazem Cd [Cardizem CD] 120 mg PO DAILY #30 cap 09/27/23 [Rx] Isosorbide Mononitrate ER [Imdur] 30 mg PO DAILY #30 tab 09/27/23 [Rx] lisinopriL [Zestril] 2.5 mg PO DAILY #30 tab 09/27/23 [Rx] Insulin Aspart [NovoLOG Flexpen] See Protocol SQ AC-TID 12/01/23 [History] Insulin Glargine,Hum.rec.anlog [Lantus Solostar Pen] 25 units SQ HS 12/01/23 [History] Nitroglycerin Sl Tabs [Nitrostat] 0.4 mg SUBLINGUAL Q5M PRN 12/01/23 [History] Follow up Appointment(s)/Referral(s): Ariadna Lambert MD [Primary Care Provider] - 1-2 days Discharge Disposition: LEFT AGAINST MEDICAL ADVICE
--- NOTE | 2023-12-02 06:47 | CA ---
Transthoracic Echo Report Name: Bessie Connors Age: 48 Gender: F : 1975 Exam Date: 12/01/2023 14:23 Exam Location: [facility] Ht (in): 65 Wt (lb): 243 Ordering Physician: Gisela Ash Attending/Referring Phys: [id number], Mihir End Trimmer Bridgett Keenan RDCS Procedure CPT: Indications: LVF Cardiac Hx: Technical Quality: Very technically difficult study Contrast 1: Definity Total Dose (mL): 2 Contrast 2: Total Dose (mL): MEASUREMENTS (Male / Female) Normal Values 2D ECHO LV Diastolic Diameter PLAX 5.0 cm 4.2 - 5.9 / 3.9 - 5.3 cm LV Systolic Diameter PLAX 4.1 cm IVS Diastolic Thickness 1.1 cm 0.6 - 1.0 / 0.6 - 0.9 cm LVPW Diastolic Thickness 1.0 cm 0.6 - 1.0 / 0.6 - 0.9 cm LV Relative Wall Thickness 0.4 Aortic Root Diameter 2.9 cm LA Systolic Diameter LX 4.0 cm 3.0 - 4.0 / 2.7 - 3.8 cm DOPPLER LVOT Peak Velocity 68.7 cm/s LVOT Peak Gradient 1.9 mmHg LVOT Velocity Time Integral 15.1 cm Mitral E Point Velocity 121.9 cm/s Mitral A Point Velocity 95.9 cm/s Mitral E to A Ratio 1.3 MV Deceleration Time 216.2 ms PV Peak Velocity 75.4 cm/s PV Peak Gradient 2.3 mmHg FINDINGS Left Ventricle Left ventricular cavity size normal. Left ventricular ejection fraction is estimated at 35-40 %. Apical and anteroapical hypokinesis. Right Ventricle Right ventricle not well visualized. Right Atrium Right atrium not well visualized. Left Atrium Mildly increased left atrial diameter. Mitral Valve Mild mitral regurgitation.structurally normal mitral valve. Aortic Valve Aortic valve not well visualized. Tricuspid Valve Tricuspid valve not well visualized. Pulmonic Valve Pulmonic valve not well visualized. Pericardium No pericardial effusion. Aorta Normal size aortic root and proximal ascending aorta. CONCLUSIONS Technically difficult study. Definity ECHO contrast used for improved visualization of the endocardial borders (inadequate visualization of two or more contiguous segments). Moderately impaired left ventricular systolic function with segmental wall motion abnormalities Very limited Doppler study with mild mitral regurgitation Previewed by: Dr. Saida Camacho MD (Electronically Signed) Final Date: 02 December 2023 06:46
[2023-12-02] MEDS ORDERED: DILTIAZEM CD 120 MG CAP.ER.24H PO SCH (09:00)
[2023-12-02] MEDS ORDERED: ASPIRIN 81 MG PO SCH (09:00)
[2023-12-02] MEDS ORDERED: CLOPIDOGREL 75 MG TAB PO SCH (09:00)
[2023-12-02] MEDS ORDERED: ISOSORBIDE MONONITRATE ER 30 MG TAB.ER.24H PO SCH (09:00)
== END 2023-12-01 19:33 | disposition left against medical advice (07) ==
LOC: EC 10:04 → 6NMEDSUR 12:28
PROVIDERS: ADMIT Internal Medicine; ATTEND Internal Medicine
DX: R07.89 Other chest pain (principal); E11.65 Type 2 diabetes mellitus with hyperglycemia; I42.0 Dilated cardiomyopathy; I25.10 Atherosclerotic heart disease of native coronary artery without angina pectoris; I34.0 Nonrheumatic mitral (valve) insufficiency; M25.511 Pain in right shoulder; R11.0 Nausea; F17.290 Nicotine dependence, other tobacco product, uncomplicated; E66.9 Obesity, unspecified; Z68.41 Body mass index [BMI] 40.0-44.9, adult; Z53.29 Procedure and treatment not carried out because of patient's decision for other reasons; I25.2 Old myocardial infarction; Z79.82 Long term (current) use of aspirin; Z79.02 Long term (current) use of antithrombotics/antiplatelets; Z79.84 Long term (current) use of oral hypoglycemic drugs; Z79.4 Long term (current) use of insulin; Z79.899 Other long term (current) drug therapy; Z88.8 Allergy status to other drugs, medicaments and biological substances; Z98.84 Bariatric surgery status
CPT/HCPCS: 96372; 96374; 99285; 36415; 93005; 93308; 83880; 80053; 83690; 83735; 84484; 85025; 85610; 85730; 71046; G0378; S4990; J2270; J2405; Q9957

== ENCOUNTER → 2024-06-20 | Outpatient (CLI) | payer MEDICARE ==
--- NOTE | 2024-06-27 13:09 | MM ---
Reason for Exam: Screening (asymptomatic). Patient History: Menarche at age 12. First Full-Term at age 18. Postmenopausal. Maternal cousin had breast cancer under age 50. Maternal cousin had breast cancer under age 50. Risk Values: Pretty 5 year model risk: 0.8%. NCI Lifetime model risk: 7.2%. Tissue Density: There are scattered areas of fibroglandular density. Findings: Analyzed By CAD. Origins of the left breast are limited due to overlying subcutaneous implantable device likely related to a loop recorder. Benign calcifications. There is no suspicious group of microcalcifications or new suspicious mass in either breast. Overall Assessment: Benign, BI-RAD 2 Management: Screening Mammogram of both breasts in 1 year. . Patient should continue monthly self-breast exams. A clinical breast exam by your physician is recommended on an annual basis. This exam should not preclude additional follow-up of suspicious palpable abnormalities. Note on Pretty scores and lifetime risk: 1. A Pretty score greater than 3% is considered moderate risk. If this is the case, consider specialist referral to assess eligibility for a risk reducing agent. 2. If overall lifetime risk for the development of breast cancer is 20% or higher, the patient may qualify for future screening with alternating mammogram and breast MRI. Electronically signed and approved by: Sameer Yu M.D. Radiologis
== END | disposition home or self-care (01) ==
LOC: RADMAMWWP 11:29
PROVIDERS: ATTEND Family Medicine
DX: Z12.31 Encounter for screening mammogram for malignant neoplasm of breast
CPT/HCPCS: 77063; 77067

== ENCOUNTER 2024-08-04 10:44 | Day surgery (SDC) | payer MEDICARE ==
[2024-08-04] MEDS: IV FLUID CONTINUATION 1,000 ML IV ONE (11:31)
[2024-08-04 11:37] VITALS: TEMP 97.8
[2024-08-04 11:47] LABS: Glucose,Whole Blood 86 mg/dL (70-110)
[2024-08-04] MEDS: LACTATED RINGERS 1,000 ML IV SCH (11:49)
[2024-08-04] MEDS ORDERED: PROPOFOL 10 MG/ML 20 ML VIAL IV ONE (12:23)
[2024-08-04] MEDS ORDERED: LIDOCAINE 1% INJ 10MG/ML (20 ML MDV) ONE (12:23)
--- NOTE | 2024-08-04 12:39 | P.PCN ---
Date of Procedure: 08/04/24 Procedure(s) Performed: BRIEF HISTORY: Patient is a 49-year-old pleasant white female scheduled for an elective colonoscopy as a part of screening for colon cancer. PROCEDURE PERFORMED: Colonoscopy with snare polypectomy. PREOPERATIVE DIAGNOSIS: Screening for colon cancer. IV sedation per Anesthesia. PROCEDURE: After informed consent was obtained, the patient, was brought into the endoscopy unit. IV sedation was administered by Anesthesia under continuous monitoring. Digital rectal examination was normal. Initially the Olympus CF-160 flexible video colonoscope was then inserted in the rectum, gradually advanced into the cecum without any difficulty. Careful examination was performed as the scope was gradually being withdrawn. Ileocecal valve and the appendiceal orifice were visualized and appeared normal. Prep was excellent. Mucosa of the cecum appeared normal. In the ascending colon there was a 6 mm polyp removed by cold snare polypectomy. Rest of the ascending colon, transverse colon, descending colon, appeared normal. The distal sigmoid colon there was a 5 mm polyp removed by cold snare polypectomy. Rest of the sigmoid colon, and rectum appeared normal. Retroflexion was performed in the rectum and no lesions were seen. The patient tolerated the procedure well. IMPRESSION: 6 mm ascending colon polyp status post cold snare polypectomy 5 mm distal sigmoid colon polyp status post snare polypectomy RECOMMENDATIONS: Findings of this examination were discussed with the patient as well as her family. She was advised to follow-up with the biopsy results. If the biopsy reveals adenoma she can have repeat colonoscopy in 5 years..
[2024-08-04 12:58] VITALS: RESP 16
[2024-08-04 13:11] VITALS: BP 147/94; PULSE 76
== END 2024-08-04 13:21 | disposition home or self-care (01) ==
LOC: ORWHC2ENDO 10:44
PROVIDERS: ATTEND Internal Medicine Gastroenterology
CPT/HCPCS: 45385; 88305

== ENCOUNTER 2024-08-04 21:46 | Observation (INO) | payer MEDICARE ==
--- NOTE | 2024-08-04 22:09 | ED ---
Chest Pain HPI - General Chief Complaint: Chest Pain Stated Complaint: Chest Pain,Sob Time Seen by Provider: 08/04/24 22:09 Source: patient, RN notes reviewed, old records reviewed Mode of arrival: wheelchair Limitations: no limitations - History of Present Illness Initial Comments: This is a 49-year-old female to the ER for evaluation of chest pain with history of CAD. Patient has severe shortness of breath chest pain diaphoresis and weakness here in the ER with history of CAD no stent MD Complaint: chest pain -: hour(s) (5) Onset: during rest, during exertion Pain Location: substernal, left chest Severity: moderate Quality: tightness, heaviness Consistency: constant Improves With: nothing Worsens With: nothing Anginal Symptoms: diaphoresis, dyspnea Other Symptoms: palpitations Treatments Prior to Arrival: none - Related Data Home Medications Medication Instructions Recorded Confirmed ARIPiprazole [Abilify] 22.5 mg PO DAILY 09/22/23 08/05/24 traZODone HCL 150 mg PO HS PRN 09/22/23 08/05/24 Insulin Aspart [NovoLOG Flexpen] See Protocol SQ AC-TID 12/01/23 08/05/24 Nitroglycerin Sl Tabs [Nitrostat] 0.4 mg SUBLINGUAL Q5M PRN 12/01/23 08/05/24 Atorvastatin [Lipitor] 40 mg PO DAILY 08/05/24 08/05/24 DULoxetine HCL [Cymbalta] 60 mg PO DAILY 08/05/24 08/05/24 Insulin Degludec/Liraglutide 50 unit SQ DAILY 08/05/24 08/05/24 [Xultophy 100 Unit-3.6MG/ml Pen] lamoTRIgine [LaMICtal] 100 mg PO DAILY 08/05/24 08/05/24 Previous Rx's Medication Instructions Recorded Aspirin 81 mg PO DAILY #30 tab 09/27/23 Clopidogrel [Plavix] 75 mg PO DAILY #30 tab 09/27/23 Diltiazem Cd [Cardizem CD] 120 mg PO DAILY #30 cap 09/27/23 Isosorbide Mononitrate ER [Imdur] 30 mg PO DAILY #30 tab 09/27/23 lisinopriL [Zestril] 2.5 mg PO DAILY #30 tab 09/27/23 Allergies Allergy/AdvReac Type Severity Reaction Status Date / Time metformin AdvReac Diarrhea Verified 08/05/24 14:21 Review of Systems ROS Statement: Those systems with pertinent positive or pertinent negative responses have been documented in the HPI. ROS Other: All systems not noted in ROS Statement are negative. EKG Findings - EKG Comments: EKG Findings:: EKG 1 is sinus 90 DE 132 QRS 117 QTc 400 - EKG Results: EKG: interpreted by ERMD, no acute changes (EKG is sinus 93 DE 136 QRS 98 QTc 385) Past Medical History Past Medical History: Diabetes Mellitus, Hyperlipidemia, Hypertension, Myocardial Infarction (CT) Last Myocardial Infarction Date:: 08/2023 History of Any Multi-Drug Resistant Organisms: None Reported Past Surgical History: Bariatric Surgery, Cholecystectomy Past Anesthesia/Blood Transfusion Reactions: No Reported Reaction Past Psychological History: Bipolar Smoking Status: Former smoker - Past Family History Mother Family Medical History: Deep Vein Thrombosis (DVT) Father History Unknown: Yes General Exam Limitations: no limitations General appearance: alert, in no apparent distress, anxious Head exam: Present: atraumatic, normocephalic, normal inspection Eye exam: Present: normal appearance, PERRL, EOMI. Absent: scleral icterus, conjunctival injection, periorbital swelling ENT exam: Present: normal exam, mucous membranes moist Neck exam: Present: normal inspection. Absent: tenderness, meningismus, lymphadenopathy Respiratory exam: Present: normal lung sounds bilaterally. Absent: respiratory distress, wheezes, rales, rhonchi, stridor Cardiovascular Exam: Present: regular rate, normal rhythm, normal heart sounds. Absent: systolic murmur, diastolic murmur, rubs, gallop, clicks GI/Abdominal exam: Present: soft, normal bowel sounds. Absent: distended, tenderness, guarding, rebound, rigid Extremities exam: Present: normal inspection, full ROM, normal capillary refill. Absent: tenderness, pedal edema, joint swelling, calf tenderness Back exam: Present: normal inspection Neurological exam: Present: alert, oriented X3, CN II-XII intact Psychiatric exam: Present: normal affect, normal mood Skin exam: Present: warm, dry, intact, normal color. Absent: rash Course Vital Signs 08/04/24 08/04/24 08/04/24 21:47 22:25 23:32 Temperature 98.3 F Pulse Rate 95 89 81 Respiratory 18 19 18 Rate Blood Pressure 181/94 153/120 144/102 O2 Sat by Pulse 96 94 L 97 Oximetry 08/05/24 00:49 Temperature Pulse Rate 85 Respiratory 18 Rate Blood Pressure 138/85 O2 Sat by Pulse 96 Oximetry - Reevaluation(s) Reevaluation #1: 08/04/24 22:22 Medical records reviewed Reevaluation #2: 08/04/24 22:22 Symptoms unchanged Reevaluation #3: 08/04/24 22:23 Patient informed of results and questions answered Reevaluation #4: Was pt. sent in by a medical professional or institution (, JEF, MIDDLE SCHOOL ASSISTANT PRINCIPAL, urgent care, hospital, or custodial...) When possible be specific @ -no Did you speak to anyone other than the patient for history (EMS, parent, family, police, friend...)? What history was obtained from this source @ -no Did you review nursing and triage notes (agree or disagree)? Why? @ -agree Are old charts reviewed (outside hosp., previous admission, EMS record, old EKG, old radiological studies, urgent care reports/EKG's, custodial records)? Report findings @ -yes Differential Diagnosis (chest pain, altered mental status, abdominal pain women, abdominal pain men, vaginal bleeding, weakness, fever, dyspnea, syncope, headache, dizziness, GI bleed, back pain, seizure, CVA, palpatations, mental health, musculoskeletal)? @ -prior EKG interpreted by me (3pts min.). @ -yes X-rays interpreted by me (1pt min.). @ -yes negative for acute disease CT interpreted by me (1pt min.). @ -no U/S interpreted by me (1pt. min.). @ -no What testing was considered but not performed or refused? (CT, X-rays, U/S, labs)? Why? @ -none What meds were considered but not given or refused? Why? @ -none Did you discuss the management of the patient with other professionals (professionals i.e. JEF Rojas, MIDDLE SCHOOL ASSISTANT PRINCIPAL, lab, RT, psych nurse, social worker delinquency prevention, timber harvester operator, teacher, first aid officer, mattress spring encaser)? Give summary @ -no Was smoking cessation discussed for >3mins.? @ -no Was critical care preformed (if so, how long)? @ -yes31 Were there social determinants of health that impacted care today? How? (Homelessness, low income, unemployed, alcoholism, drug addiction, transportation, low edu. Level, literacy, decrease access to med. care, senior care, rehab)? @ -none Was there de-escalation of care discussed even if they declined (Discuss DNR or withdrawal of care, Hospice)? DNR status @ -no What co-morbidities impacted this encounter? (DM, HTN, Smoking, COPD, CAD, Cancer, CVA, ARF, Chemo, Hep., AIDS, mental health diagnosis, sleep apnea, morbid obesity)? @ -none Was patient admitted / discharged? Hospital course, mention meds given and route, prescriptions, significant lab abnormalities, going to OR and other p ertinent info. @ - 49 female to the ER for evaluation here for evaluation of pain, history of CAD and non-STEMI or heart attack in the past. Patient be admitted for chest pain observation Admitted Undiagnosed new problem with uncertain prognosis? @ -no Drug Therapy requiring intensive monitoring for toxicity (Heparin, Nitro, Insulin, Cardizem)? @ -no Were any procedures done? @ -no Diagnosis/symptom? @ -Chest pain CAD and non-STEMI Acute, or Chronic, or Acute on Chronic? @ -Acute Uncomplicated (without systemic symptoms) or Complicated (systemic symptoms)? @ -Complicated Side effects of treatment? @ -no Exacerbation, Progression, or Severe Exacerbation? @ -exacerbation Poses a threat to life or bodily function? How? (Chest pain, USA, CT, pneumonia, PE, COPD, DKA, ARF, appy, cholecystitis, CVA, Diverticulitis, Homicidal, Suicidal, threat to staff... and all critical care pts) @ -yes with chest pain Reevaluation #5: Differential Chest Pain: Stable Angina, Unstable Angina, STEMI, NSTEMI Aortic Dissection, Pneumothorax, Musculoskeletal, Esophageal Spasm GERD, Cholecystitis, Pancreatitis, Zoster, this is not meant to be an all-inclusive list. - Consultations Consultation #1: With admitting physicians who agreed to admit this patient Chest Pain MDM - MDM 49 female to the ER for evaluation here for evaluation of pain, history of CAD and non-STEMI or heart attack in the past. Patient be admitted for chest pain observation Critical Care Time Critical Care Time: Yes Total Critical Care Time: 31 Disposition Clinical Impression: Atypical chest pain, Chest pain, CAD (coronary artery disease) Disposition: ADMITTED IP TO THIS HOSP Condition: Fair Is patient prescribed a controlled substance at d/c from ED?: No Time of Disposition: 00:10
[2024-08-04] MEDS: LABETALOL 5 MG/ML VIAL MDV IVP STA (22:26)
[2024-08-04 22:48] LABS: Basophils # (A) 0.1 k/uL (0-0.2); Basophils % (A) 1 %; Eosinophils # (A) 0.1 k/uL (0-0.7); Eosinophils % (A) 1 %; HCT 45.5 % (34.0-46.0); HGB 14.6 gm/dL (11.4-16.0); Lymphocytes # (A) 2.8 k/uL (1.0-4.8); Lymphocytes % (A) 30 %; MCH 27.8 pg (25.0-35.0); MCHC 32.1 g/dL (31.0-37.0); MCV 86.5 fL (80.0-100.0); Mean Platelet Volume 7.7; Monocytes # (A) 0.8 k/uL (0-1.0); Monocytes % (A) 9 %; Neutrophils # (A) 5.4 k/uL (1.3-7.7); Neutrophils % (A) 57 %; Platelet Count 279 k/uL (150-450); RBC 5.26 m/uL (3.80-5.40); RDW 13.2 % (11.5-15.5); WBC 9.5 k/uL (3.8-10.6)
[2024-08-04 22:58] LABS: ALT 18 U/L (4-34); AST 33 U/L (14-36); African American GFR (CKD) >90 (>60 ml/min/1.73 sqM); Albumin 4.1 g/dL (3.5-5.0); Alkaline Phosphatase 93 U/L (38-126); Anion Gap 6 mmol/L; Blood Urea Nitrogen 17 mg/dL (7-17); Calcium 9.5 mg/dL (8.4-10.2); Carbon Dioxide 21 mmol/L (22-30); Chloride 109 mmol/L (98-107); Glucose 110 mg/dL (74-99); Magnesium 2.1 mg/dL (1.6-2.3); Non-African American GFR(CKD) >90 (>60 ml/min/1.73 sqM); Potassium 4.2 mmol/L (3.5-5.1); Sodium 136 mmol/L (137-145); Total Bilirubin 0.6 mg/dL (0.2-1.3); Total Protein 6.8 g/dL (6.3-8.2)
[2024-08-04 23:00] LABS: INR 0.9 (<1.2); Partial Thromboplastin Time 24.5 sec (22.0-30.0); Prothrombin Time 9.9 sec (10.0-12.5)
[2024-08-04 23:26] LABS: Phosphorus 4.9 mg/dL (2.5-4.5)
[2024-08-04] MEDS: HYDROmorphone 1 MG/ML 1 ML SYRINGE IVP STA (23:32)
--- NOTE | 2024-08-05 00:14 | XR ---
EXAM: XR Chest, 1 View CLINICAL HISTORY: ITS.REASON XR Reason: Chest Pain TECHNIQUE: Frontal view of the chest. COMPARISON: 12/01/2023. FINDINGS: Lungs: Unremarkable. No consolidative changes or pleural effusions. Pleural space: See above. Heart: Heart is top normal in size. No cardiomegaly. Mediastinum: Unremarkable. Normal mediastinal contour. Bones/joints: Osseous structures and soft tissues are unremarkable. No acute fracture. IMPRESSION: No consolidative changes or pleural effusions.
[2024-08-05] MEDS: HEPARIN SOD,PORK IN 0.45% NACL 25,000 UNIT in 0.45% NACL 1 250ML.BAG IV SCH (00:46)
[2024-08-05] MEDS: HEPARIN SODIUM 1,000 UN/ML (10ML VL) IV ONE (00:47)
[2024-08-05] MEDS: ASPIRIN 81 MG PO STA (00:49)
[2024-08-05] MEDS ORDERED: DEXTROSE 50% SYRINGE 50 ML IVP PRN ×2 (01:09)
[2024-08-05] MEDS: MORPHINE SULFATE 4 MG/ML SYRINGE IV PRN (02:14)
[2024-08-05] MEDS: NITROGLYCERIN SL TABS 0.4 MG TAB SUBLINGUAL PRN (05:34)
[2024-08-05] MEDS: INSULIN ASPART (NovoLOG) 100 UNIT/ML VIAL SQ SCH (05:49)
[2024-08-05 05:50] LABS: Glucose,Whole Blood 136 mg/dL (70-110)
[2024-08-05] MEDS: ISOSORBIDE MONONITRATE ER 30 MG TAB.ER.24H PO STA (06:10)
[2024-08-05] MEDS: ONDANSETRON 4 MG/2 ML VIAL IVP STA (06:10)
[2024-08-05] MEDS: PANTOPRAZOLE 40 MG/10 ML VIAL IVP STA (06:10)
[2024-08-05 06:27] LABS: Platelet Count 290 k/uL (150-450)
[2024-08-05 07:52] VITALS: RESP 16; TEMP 98
[2024-08-05] MEDS: ATORVASTATIN 80 MG TAB PO SCH (10:09)
[2024-08-05] MEDS: METOPROLOL TARTRATE 25 MG TAB PO SCH (10:10)
--- NOTE | 2024-08-05 11:15 | CA ---
Transthoracic Echo Report Name: Bessie Connors Age: 49 Gender: F : 1975 Exam Date: 08/05/2024 08:19 Exam Location: [facility] Ht (in): 65 Wt (lb): 246 Ordering Physician: Jayme Deutsch DO Attending/Referring Phys: [id number], Get Campaign Analyst Diamond Childs RDCS Procedure CPT: Indications: CP Cardiac Hx: Technical Quality: Technically difficult study Contrast 1: Definity Total Dose (mL): 2 Contrast 2: Total Dose (mL): MEASUREMENTS (Male / Female) Normal Values 2D ECHO LV Diastolic Diameter PLAX 5.4 cm 4.2 - 5.9 / 3.9 - 5.3 cm LV Systolic Diameter PLAX 4.5 cm IVS Diastolic Thickness 0.7 cm 0.6 - 1.0 / 0.6 - 0.9 cm LVPW Diastolic Thickness 1.0 cm 0.6 - 1.0 / 0.6 - 0.9 cm LV Relative Wall Thickness 0.3 LVOT Diameter 2.3 cm LV Diastolic Volume MOD 4C 206.8 cm??? LV Systolic Volume MOD 4C 88.9 cm??? LV Ejection Fraction MOD 4C 57.0 % LV Cardiac Index MOD 4C 3609.3 cm???/min???m??? LV Diastolic Length 4C 9.0 cm LV Systolic Length 4C 7.8 cm LA Volume 53.2 cm??? 18 - 58 / 22 - 52 cm??? LA Volume Index 23.0 cm???/m??? 16 - 28 cm???/m??? Ascending Aorta Diameter 2.8 cm DOPPLER AV Peak Velocity 109.9 cm/s AV Peak Gradient 4.8 mmHg AV Mean Velocity 77.7 cm/s AV Mean Gradient 2.6 mmHg AV Velocity Time Integral 20.1 cm LVOT Peak Velocity 89.8 cm/s LVOT Peak Gradient 3.2 mmHg LVOT Velocity Time Integral 15.2 cm LVOT Stroke Volume 60.9 cm??? LVOT Stroke Volume Index 28.2 ml/m??? LVOT Cardiac Index 1865.7 cm???/min???m??? AV Area Cont Eq vti 3.0 cm??? AV Area Cont Eq pk 3.3 cm??? MV Area PHT 4.9 cm??? Mitral E Point Velocity 44.3 cm/s Mitral A Point Velocity 49.4 cm/s Mitral E to A Ratio 0.9 MV Deceleration Time 155.1 ms PV Peak Velocity 86.6 cm/s PV Peak Gradient 3.0 mmHg FINDINGS Left Ventricle Left ventricular ejection fraction is estimated at 35-40 %. Mildly increased left ventricular diastolic diameter. Left ventricular wall thickness normal. Global hypokinesis with regional variability. No evidence of LV thrombus Right Ventricle Right ventricle not well visualized. Unable to estimate the right ventricular systolic pressure. Right Atrium Right atrium not well visualized. Left Atrium Mildly increased left atrial volume. Mitral Valve Structurally normal mitral valve. No mitral stenosis, regurgitation or prolapse. Aortic Valve Trileaflet aortic valve. No aortic valve stenosis or regurgitation. Tricuspid Valve Structurally normal tricuspid valve. No tricuspid stenosis, regurgitation or prolapse. Pulmonic Valve Pulmonic valve not well visualized. No pulmonic stenosis. Trace pulmonic regurgitation. Pericardium No pericardial effusion. Aorta Normal size aortic root and proximal ascending aorta. CONCLUSIONS Left ventricular ejection fraction is estimated at 35-40 %. Global hypokinesis with basal inferolateral wall hypokinesia No significant valve dysfunction No pericardial effusion Previewed by: Dr Jogre Tamez (Electronically Signed) Final Date: 05 August 2024 11:15
--- NOTE | 2024-08-05 11:48 | P.CRDCN ---
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 She also had cardiomyopathy EF of 35 to 40%. At that time patient was also using tobacco vape. Patient has been doing well on her antianginal medical regimen. She has been compliant with not using tobacco vaping. She was doing well until recently. Yesterday she had a outpatient colonoscopy done after which she started having substernal chest pressure radiating to right shoulder which was very typical of her presentation in August 2023. On admission her ECG shows sinus rhythm with T wave inversions in lateral leads which are unchanged from prior ECG. Her troponins were not elevated. Her labs were essentially within normal limits REVIEW OF SYSTEMS 14 point review of system is negative except what is mentioned above in HPI. PHYSICAL EXAMINATION Vital signs reviewed. Head: Normocephalic. Eyes: Sclerae nonicteric. Neck: Brisk carotid upstroke, no jugular venous distention. Lungs: Clear to auscultation. Heart: Regular rate and rhythm, S1-S2, no S3, no murmur or rub. Abdomen: Soft nontender, positive bowel sounds. Extremities: No edema, intact distal pulses. Neuro: Alert, oritented, no focal deficits. Detailed neuro exam was not performed. ASSESSMENT Vasospastic angina MINOCA Cardiomyopathy with a EF 35 to 40%, euvolemic Obesity PLAN Resume aspirin 81 mg, Plavix 75 mg, Lipitor 40 mg daily Resume losartan 25 mg daily, Imdur 30 mg daily, Cardizem CD 120 mg daily Discontinue beta-heriberto due to concerns of vasospasm Resume Jardiance 10 mg daily Monitor patient for next 24 hours. If blood pressure and heart rate tolerates, uptitrate Cardizem and Imdur. Patient's insurance is not able to approve Jardiance, Entresto. Patient would highly benefit from these 2 medications because of her cardiomyopathy which is recurrent and her symptoms of vasospastic angina which are recurrent. On outpatient basis I will like to obtain an MRI of her heart I would also like to send her to a cardiac rehab to improve her symptoms of recurrent angina and cardiomyopathy. I urged the insurance to please cover appropriate guideline directed medical therapy for cardiomyopathy including Jardiance and Entresto. I also urged insurance to cover cardiac rehab for this patient. If they do not want to cover it please send me details why they do not want to. This would prevent patient's recurrent hospitalizations with anginal symptoms Jorge Tamez MD, [facility], [facility] Thank you for allowing [facility] to participate in this patient's care. Feel free to reach out in case of any followup questions. Past Medical History Past Medical History: Diabetes Mellitus, Hyperlipidemia, Hypertension, Myocardial Infarction ([place]) Last Myocardial Infarction Date:: 08/2023 History of Any Multi-Drug Resistant Organisms: None Reported Past Surgical History: Bariatric Surgery, Cholecystectomy Past Anesthesia/Blood Transfusion Reactions: No Reported Reaction Past Psychological History: Bipolar Smoking Status: Former smoker Past Alcohol Use History: Rare Additional Past Alcohol Use History / Comment(s): 04/27/24 quit Past Drug Use History: Marijuana Additional Drug Use History / Comment(s): refrain 24 hours prior to procedure - Past Family History Mother Family Medical History: Cancer, Deep Vein Thrombosis (DVT) Father History Unknown: Yes Medications and Allergies Home Medications Medication Instructions Recorded Confirmed Type ARIPiprazole [Abilify] 22.5 mg PO DAILY 09/22/23 08/04/24 History lamoTRIgine [LaMICtal] 50 mg PO DAILY 09/22/23 08/04/24 History traZODone HCL 150 mg PO HS PRN 09/22/23 08/04/24 History Aspirin 81 mg PO DAILY #30 tab 09/27/23 08/04/24 Rx Atorvastatin [Lipitor] 40 mg PO HS #30 tab 09/27/23 08/04/24 Rx Clopidogrel [Plavix] 75 mg PO DAILY #30 tab 09/27/23 08/04/24 Rx Diltiazem Cd [Cardizem CD] 120 mg PO DAILY #30 cap 09/27/23 08/04/24 Rx Isosorbide Mononitrate ER [Imdur] 30 mg PO DAILY #30 tab 09/27/23 08/04/24 Rx lisinopriL [Zestril] 2.5 mg PO DAILY #30 tab 09/27/23 08/04/24 Rx Insulin Aspart [NovoLOG Flexpen] See Protocol SQ AC-TID 12/01/23 08/04/24 History Insulin Glargine,Hum.rec.anlog 25 units SQ HS 12/01/23 08/04/24 History [Lantus Solostar Pen] Nitroglycerin Sl Tabs [Nitrostat] 0.4 mg SUBLINGUAL Q5M PRN 12/01/23 08/04/24 History Allergies Allergy/AdvReac Type Severity Reaction Status Date / Time metformin AdvReac Diarrhea Verified 08/04/24 21:50 Physical Exam Vitals: Vital Signs Temp Pulse Pulse Resp BP BP Pulse Ox 08/05/24 07:00 98.0 F 72 16 106/68 95 08/05/24 05:48 80 140/87 08/05/24 05:30 146/95 08/05/24 01:42 98.4 F 81 17 124/74 97 08/05/24 00:49 85 18 138/85 96 08/04/24 23:32 81 18 144/102 97 08/04/24 22:25 89 19 153/120 94 L 08/04/24 21:47 98.3 F 95 18 181/94 96 Intake and Output 08/04/24 08/05/24 08/05/24 22:59 06:59 14:59 Other: # Voids 2 Weight 111.584 kg 111.584 kg Results 08/05/24 05:13 08/04/24 22:00 Cardiac Enzymes 08/04/24 08/04/24 08/05/24 Range/Units 22:00 22:00 01:48 AST 33 (14-36) U/L Troponin I <0.012 <0.012 (0.000-0.034) ng/mL 08/05/24 Range/Units 05:13 AST (14-36) U/L Troponin I 0.013 (0.000-0.034) ng/mL Coagulation 08/04/24 08/05/24 08/05/24 Range/Units 22:00 01:48 05:13 PT 9.9 L (10.0-12.5) sec APTT 24.5 85.9 H 43.9 H (22.0-30.0) sec CBC 08/04/24 08/05/24 Range/Units 22:00 05:13 WBC 9.5 (3.8-10.6) k/uL RBC 5.26 (3.80-5.40) m/uL Hgb 14.6 (11.4-16.0) gm/dL Hct 45.5 (34.0-46.0) % Plt Count 279 290 (150-450) k/uL Comprehensive Metabolic Panel 08/04/24 Range/Units 22:00 Sodium 136 L (137-145) mmol/L Potassium 4.2 (3.5-5.1) mmol/L Chloride 109 H (98-107) mmol/L Carbon Dioxide 21 L (22-30) mmol/L BUN 17 (7-17) mg/dL Creatinine 0.63 (0.52-1.04) mg/dL Glucose 110 H (74-99) mg/dL Calcium 9.5 (8.4-10.2) mg/dL AST 33 (14-36) U/L ALT 18 (4-34) U/L Alkaline Phosphatase 93 (38-126) U/L Total Protein 6.8 (6.3-8.2) g/dL Albumin 4.1 (3.5-5.0) g/dL Current Medications Generic Name Dose Route Start Last Admin Trade Name Freq PRN Reason Stop Dose Admin Aspirin 81 mg 08/05/24 11:45 Aspirin 81 Mg PO DAILY [facility] Atorvastatin Calcium 40 mg 08/06/24 09:00 Atorvastatin 40 Mg Tab PO DAILY [facility] Clopidogrel Bisulfate 75 mg 08/05/24 11:45 Clopidogrel 75 Mg Tab PO DAILY [facility] Dapagliflozin 10 mg 08/05/24 11:45 Dapagliflozin Propanediol 10 Mg Tablet PO DAILY [facility] Dextrose/Water 25 ml 08/05/24 01:09 Dextrose 50% Syringe 50 Ml IVP PER PROTOCOL PRN Hypoglycemia Protocol Dextrose/Water 50 ml 08/05/24 01:09 Dextrose 50% Syringe 50 Ml IVP PER PROTOCOL PRN Hypoglycemia Protocol Diltiazem HCl 120 mg 08/05/24 11:45 Diltiazem Cd 120 Mg Cap.Er.24h PO DAILY [facility] Insulin Aspart 0 unit 08/05/24 07:30 08/05/24 05:49 Insulin Aspart (Novolog) 100 Unit/Ml Vial SQ Not Given ACHS [facility] Protocol Insulin Detemir 25 unit 08/05/24 21:00 Insulin Detemir (Levemir) 100 Unit/Ml Syr SQ HS [facility] Losartan Potassium 25 mg 10/12/24 11:45 Losartan 25 Mg Tab PO DAILY [facility] Morphine Sulfate 4 mg 08/05/24 00:08 08/05/24 06:50 Morphine Sulfate 4 Mg/Ml Syringe IV 4 mg Q4HR PRN Administration Chest Pain Nitroglycerin 0.4 mg 08/05/24 00:08 08/05/24 05:34 Nitroglycerin Sl Tabs 0.4 Mg Tab SUBLINGUAL 0.4 mg Q5M PRN Administration Chest Pain Ranolazine 500 mg 08/05/24 11:45 Ranolazine 500 Mg Tab.Er.12h PO Q12HR [facility] Intake and Output 08/04/24 08/05/24 08/05/24 22:59 06:59 14:59 Other: # Voids 2 Weight 111.584 kg 111.584 kg 08/05/24 05:13 08/04/24 22:00
[2024-08-05 12:11] LABS: Glucose,Whole Blood 158 mg/dL (70-110)
[2024-08-05] MEDS: ASPIRIN 81 MG PO SCH (12:29)
[2024-08-05] MEDS: RANOLAZINE 500 MG TAB.ER.12H PO SCH (12:29)
[2024-08-05] MEDS: CLOPIDOGREL 75 MG TAB PO SCH (12:29)
[2024-08-05] MEDS: DAPAGLIFLOZIN PROPANEDIOL 10 MG TABLET PO SCH (12:29)
[2024-08-05] MEDS: DILTIAZEM CD 120 MG CAP.ER.24H PO SCH (12:29)
--- NOTE | 2024-08-05 13:48 | P.HPIM ---
History of Present Illness H&P Date: 08/05/24 History of present illness; patient is 49-year-old lady with past medical history significant for nonobstructive coronary artery disease, obesity, diabetes mellitus type 2 who presented to the ER because of chest pain. Patient stated that she was all right yesterday afternoon around 2:00 started having chest pain that was central in location, radiating to right shoulder, intermittent, no aggravating or relieving factor associated with this chest pain. Patient was complaining of shortness of breath and severe diaphoresis at that time. Patient took nitro glycerin 3 tablets which relieved her chest pain. At that time patient became concerned and decided to come to the ER. Initial lab work done in the ER showed WBC 9.5, hemoglobin 14.6, platelet count 279, D-dimer 0.25, sodium 136, potassium 4.2, BUN 17, creatinine 0.63, troponin 0.012, phosphorus 4.9 EKG done in the ER showed heart rate of 90, no ST segment elevation or depression seen, no T-wave inversions seen. Chest x-ray done in the ER showed no acute consolidative changes or pleural effusion Patient admitted to internal medicine service REVIEW OF SYSTEMS: CONSTITUTIONAL: No fever, no malaise, no fatigue. HEENT: No recent visual problems or hearing problems. Denied any sore throat. CARDIOVASCULAR: As mentioned above PULMONARY: As mentioned above GASTROINTESTINAL: No diarrhea, no nausea, no vomiting, no abdominal pain. NEUROLOGICAL: No headaches, no weakness, no numbness. HEMATOLOGICAL: Denies any bleeding or petechiae. GENITOURINARY: Denies any burning micturition, frequency, or urgency. MUSCULOSKELETAL/RHEUMATOLOGICAL: Denies any joint pain, swelling, or any muscle pain. ENDOCRINE: Denies any polyuria or polydipsia. The rest of the 14-point review of systems is negative. PHYSICAL EXAMINATION: GENERAL: The patient is alert and oriented x3, not in any acute distress. Well developed, well nourished. HEENT: Pupils are round and equally reacting to light. EOMI. No scleral icterus. No conjunctival pallor. Normocephalic, atraumatic. No pharyngeal erythema. No thyromegaly. CARDIOVASCULAR: S1 and S2 present. No murmurs, rubs, or gallops. PULMONARY: Chest is clear to auscultation, no wheezing or crackles. ABDOMEN: Soft, nontender, nondistended, normoactive bowel sounds. No palpable organomegaly. MUSCULOSKELETAL: No joint swelling or deformity. EXTREMITIES: No cyanosis, clubbing, or pedal edema. NEUROLOGICAL: Gross neurological examination did not reveal any focal deficits. SKIN: No rashes. Assessment and plan Chest pain, rule out acute coronary syndrome Hypertension Diabetes mellitus Hyperlipidemia Monitor vital signs Monitor CBC Monitor CMP Continue telemetry monitoring Trend troponins. Monitor blood sugar levels, continue sliding scale insulin Resume Imdur Resume Lopressor Resume aspirin and Lipitor Consult cardiology Labs and medication were reviewed.. Continue same treatment. Continue with symptomatic treatment. Resume home medication. Monitor labs and vitals. DVT a nd GI prophylaxis. Further recommendations as per clinical course of the patient Dictation was produced using [employer] dictation software. please excuse any grammatical, word or spelling errors. Past Medical History Past Medical History: Diabetes Mellitus, Hyperlipidemia, Hypertension, Myocardial Infarction (LA) Last Myocardial Infarction Date:: 08/2023 History of Any Multi-Drug Resistant Organisms: None Reported Past Surgical History: Bariatric Surgery, Cholecystectomy Past Anesthesia/Blood Transfusion Reactions: No Reported Reaction Past Psychological History: Bipolar Smoking Status: Former smoker Past Alcohol Use History: Rare Additional Past Alcohol Use History / Comment(s): 04/27/24 quit Past Drug Use History: Marijuana Additional Drug Use History / Comment(s): refrain 24 hours prior to procedure - Past Family History Mother Family Medical History: Cancer, Deep Vein Thrombosis (DVT) Father History Unknown: Yes Medications and Allergies Home Medications Medication Instructions Recorded Confirmed Type ARIPiprazole [Abilify] 22.5 mg PO DAILY 09/22/23 08/04/24 History lamoTRIgine [LaMICtal] 50 mg PO DAILY 09/22/23 08/04/24 History traZODone HCL 150 mg PO HS PRN 09/22/23 08/04/24 History Aspirin 81 mg PO DAILY #30 tab 09/27/23 08/04/24 Rx Atorvastatin [Lipitor] 40 mg PO HS #30 tab 09/27/23 08/04/24 Rx Clopidogrel [Plavix] 75 mg PO DAILY #30 tab 09/27/23 08/04/24 Rx Diltiazem Cd [Cardizem CD] 120 mg PO DAILY #30 cap 09/27/23 08/04/24 Rx Isosorbide Mononitrate ER [Imdur] 30 mg PO DAILY #30 tab 09/27/23 08/04/24 Rx lisinopriL [Zestril] 2.5 mg PO DAILY #30 tab 09/27/23 08/04/24 Rx Insulin Aspart [NovoLOG Flexpen] See Protocol SQ AC-TID 12/01/23 08/04/24 History Insulin Glargine,Hum.rec.anlog 25 units SQ HS 12/01/23 08/04/24 History [Lantus Solostar Pen] Nitroglycerin Sl Tabs [Nitrostat] 0.4 mg SUBLINGUAL Q5M PRN 12/01/23 08/04/24 History Allergies Allergy/AdvReac Type Severity Reaction Status Date / Time metformin AdvReac Diarrhea Verified 08/04/24 21:50 Physical Exam Vitals: Vital Signs Temp Pulse Pulse Resp BP BP Pulse Ox 08/05/24 07:00 98.0 F 72 16 106/68 95 08/05/24 05:48 80 140/87 08/05/24 05:30 146/95 08/05/24 01:42 98.4 F 81 17 124/74 97 08/05/24 00:49 85 18 138/85 96 08/04/24 23:32 81 18 144/102 97 08/04/24 22:25 89 19 153/120 94 L 08/04/24 21:47 98.3 F 95 18 181/94 96 Intake and Output 08/04/24 08/05/24 08/05/24 22:59 06:59 14:59 Other: # Voids 2 Weight 111.584 kg 111.584 kg Results CBC & Chem 7: 08/05/24 05:13 08/04/24 22:00 Labs: Abnormal Lab Results - Last 24 Hours (Table) 08/04/24 08/04/24 08/04/24 Range/Units 22:00 22:00 22:00 PT 9.9 L (10.0-12.5) sec APTT (22.0-30.0) sec Sodium 136 L (137-145) mmol/L Chloride 109 H (98-107) mmol/L Carbon Dioxide 21 L (22-30) mmol/L Glucose 110 H (74-99) mg/dL POC Glucose (mg/dL) (70-110) mg/dL Phosphorus 4.9 H (2.5-4.5) mg/dL 08/05/24 08/05/24 08/05/24 Range/Units 01:48 05:13 05:48 PT (10.0-12.5) sec APTT 85.9 H 43.9 H (22.0-30.0) sec Sodium (137-145) mmol/L Chloride (98-107) mmol/L Carbon Dioxide (22-30) mmol/L Glucose (74-99) mg/dL POC Glucose (mg/dL) 136 H (70-110) mg/dL Phosphorus (2.5-4.5) mg/dL Thrombosis Risk Factor Assmnt - Choose All That Apply Each Factor Represents 1 point: Age 41-60 years, Obesity (BMI >25) Each Risk Factor Represents 3 Points: Family history of DVT/PE Thrombosis Risk Factor Assessment Total Risk Factor Score: 5 Thrombosis Risk Factor Assessment Level: High Risk
[2024-08-05] MEDS: ONDANSETRON 4 MG/2 ML VIAL IVP PRN (17:15)
[2024-08-05] MEDS: lamoTRIgine 100 MG TAB PO SCH (17:15)
[2024-08-05] MEDS: DULoxetine HCL 60 MG CAPSULE.DR PO SCH (17:15)
[2024-08-05 17:17] LABS: Glucose,Whole Blood 152 mg/dL (70-110)
[2024-08-05] MEDS: LOSARTAN 25 MG TAB PO SCH (17:22)
[2024-08-05] MEDS: INSULIN DETEMIR (LEVEMIR) 100 UNIT/ML SYR SQ SCH (21:09)
[2024-08-06 05:40] LABS: Glucose,Whole Blood 118 mg/dL (70-110)
[2024-08-06 06:10] LABS: Glucose,Whole Blood 128 mg/dL (70-110)
[2024-08-06] MEDS: ATORVASTATIN 40 MG TAB PO SCH (08:51)
[2024-08-06] MEDS: ARIPiprazole 15 MG TAB PO SCH (08:52)
[2024-08-06] MEDS ORDERED: ASPIRIN 325 MG TAB PO SCH (09:00)
[2024-08-06 09:54] LABS: Platelet Count 267 X 10*3/uL (140-440)
--- NOTE | 2024-08-06 09:55 | P.PN ---
Subjective Progress Note Date: 08/06/24 HISTORY OF PRESENTING ILLNESS 49-year-old female with past medical history of NSTEMI in August 2023 with cardiac catheterization found possible MIN[place]A with ulcerated plaque and concerns of vasospastic angina with dynamic ECG changes when patient had substernal chest pressure. She also had cardiomyopathy EF of 35 to 40%. At that time patient was also using tobacco vape. Patient has been doing well on her antianginal medical regimen. She has been compliant with not using tobacco vaping. She was doing well until recently. Yesterday she had a outpatient colonoscopy done after which she started having substernal chest pressure radiating to right shoulder which was very typical of her presentation in August 2023. On admission her ECG shows sinus rhythm with T wave inversions in lateral leads which are unchanged from prior ECG. Her troponins were not elevated. Her labs were essentially within normal limits Progress note 08/06/2024 Patient is doing well. Her chest pain has reported to be better. She is hemodynamically stable. Her ECG shows normal sinus rhythm with no new changes. Her telemetry does show intermittent PVCs. PHYSICAL EXAMINATION Vital signs reviewed. Head: Normocephalic. Eyes: Sclerae nonicteric. Neck: Brisk carotid upstroke, no jugular venous distention. Lungs: Clear to auscultation. Heart: Regular rate and rhythm, S1-S2, no S3, no murmur or rub. Abdomen: Soft nontender, positive bowel sounds. Extremities: No edema, intact distal pulses. Neuro: Alert, oritented, no focal deficits. Detailed neuro exam was not performed. ASSESSMENT Vasospastic angina MIN[place]A Cardiomyopathy with a EF 35 to 40%, euvolemic Obesity PLAN Resume aspirin 81 mg, Plavix 75 mg, Lipitor 40 mg daily Resume losartan 25 mg daily, Imdur 30 mg daily, increase Cardizem CD to 180 mg daily. Ranexa 500 mg twice daily Discontinue beta-heriberto due to concerns of vasospasm Resume Jardiance 10 mg daily Patient's insurance is not able to approve Jardiance, Entresto. Patient would highly benefit from these 2 medications because of her cardiomyopathy which is recurrent and her symptoms of vasospastic angina which are recurrent. On outpatient basis I will like to obtain an MRI of her heart I would also like to send her to a cardiac rehab to improve her symptoms of recurrent angina and cardiomyopathy. I urged the insurance to please cover appropriate guideline directed medical therapy for cardiomyopathy including Jardiance and Entresto. I also urged insurance to cover cardiac rehab for this patient. If they do not want to cover it please send me details why they do not want to. This would prevent patient's recurrent hospitalizations with anginal symptoms Patient is otherwise cleared from cardiology. Recommend outpatient follow-up with Dr. Tamez Objective - Vital Signs Vital signs: Vital Signs Temp 98.0 F 08/06/24 07:00 Pulse 89 08/06/24 07:00 Resp 16 08/06/24 07:00 BP 143/89 08/06/24 07:00 Pulse Ox 97 08/06/24 07:00 FiO2 Intake & Output 08/05/24 08/06/24 08/06/24 18:59 06:59 18:59 Intake Total 358 591 Balance 358 591 Intake: Oral 358 591 Other: # Voids 3 3 - Labs CBC & Chem 7: 08/05/24 05:13 08/04/24 22:00 Labs: Abnormal Lab Results - Last 24 Hours (Table) 08/05/24 08/05/24 08/05/24 Range/Units 12:10 17:16 20:09 POC Glucose (mg/dL) 158 H 152 H 128 H (70-110) mg/dL 08/06/24 Range/Units 05:39 POC Glucose (mg/dL) 118 H (70-110) mg/dL
--- NOTE | 2024-08-06 10:05 | P.DS ---
Providers Date of admission: 08/05/24 00:08 Expected date of discharge: 08/06/24 Attending physician: Samm Hobson Consults: 08/05/24 00:08 Consult Physician Urgent Consulting Provider: Saida Camacho Consult Reason/Comments: cp Do you want consulting provider notified?: Yes Primary care physician: [facility] Course: Discharge diagnoses; Chest pain, acute coronary syndrome ruled out Hypertension Diabetes mellitus Hyperlipidemia Hospital course; patient is 49-year-old lady with past medical history significant for nonobstructive coronary artery disease, obesity, diabetes mellitus type 2 who presented to the ER because of chest pain. Patient stated that she was all right yesterday afternoon around 2:00 started having chest pain that was central in location, radiating to right shoulder, intermittent, no aggravating or relieving factor associated with this chest pain. Patient was complaining of shortness of breath and severe diaphoresis at that time. Patient took nitro glycerin 3 tablets which relieved her chest pain. At that time patient became concerned and decided to come to the ER. Initial lab work done in the ER showed WBC 9.5, hemoglobin 14.6, platelet count 279, D-dimer 0.25, sodium 136, potassium 4.2, BUN 17, creatinine 0.63, troponin 0.012, phosphorus 4.9 EKG done in the ER showed heart rate of 90, no ST segment elevation or depres leonardo seen, no T-wave inversions seen. Chest x-ray done in the ER showed no acute consolidative changes or pleural effusion Patient admitted to internal medicine service 08/06. Patient seen and examined. Cardiology eval the patient, recommended Resume aspirin 81 mg, Plavix 75 mg, Lipitor 40 mg daily,Resume losartan 25 mg daily, Imdur 30 mg daily, increase Cardizem CD to 180 mg daily. Ranexa 500 mg twice daily Discontinue beta-heriberto due to concerns of vasospasm. Recommended outpatient follow-up PHYSICAL EXAMINATION: GENERAL: The patient is alert and oriented x3, not in any acute distress. Well developed, well nourished. HEENT: Pupils are round and equally reacting to light. EOMI. No scleral icterus. No conjunctival pallor. Normocephalic, atraumatic. No pharyngeal erythema. No thyromegaly. CARDIOVASCULAR: S1 and S2 present. No murmurs, rubs, or gallops. PULMONARY: Chest is clear to auscultation, no wheezing or crackles. ABDOMEN: Soft, nontender, nondistended, normoactive bowel sounds. No palpable organomegaly. MUSCULOSKELETAL: No joint swelling or deformity. EXTREMITIES: No cyanosis, clubbing, or pedal edema. NEUROLOGICAL: Gross neurological examination did not reveal any focal deficits. SKIN: No rashes. Dictation was produced using [employer] dictation software. please excuse any grammatical, word or spelling errors. Patient Condition at Discharge: Fair Plan - Discharge Summary Discharge Rx Participant: Yes New Discharge Prescriptions: New Losartan [Cozaar] 25 mg PO DAILY tab Isosorbide Mononitrate ER [Imdur] 60 mg PO DAILY #30 tab Diltiazem Cd [Cardizem CD] 180 mg PO DAILY cap Dapagliflozin Propanediol [Farxiga] 10 mg PO DAILY 90 Days #90 tab Ranolazine [Ranexa] 500 mg PO Q12HR tab Continue Aspirin 81 mg PO DAILY #30 tab Insulin Aspart [NovoLOG Flexpen] See Protocol SQ AC-TID lamoTRIgine [LaMICtal] 100 mg PO DAILY DULoxetine HCL [Cymbalta] 60 mg PO DAILY Atorvastatin [Lipitor] 40 mg PO DAILY ARIPiprazole [Abilify] 22.5 mg PO DAILY traZODone HCL 150 mg PO HS PRN PRN Reason: Insomnia Clopidogrel [Plavix] 75 mg PO DAILY #30 tab Nitroglycerin Sl Tabs [Nitrostat] 0.4 mg SUBLINGUAL Q5M PRN PRN Reason: Chest Pain Insulin Degludec/Liraglutide [Xultophy 100 Unit-3.6MG/ml Pen] 50 unit SQ DAILY Discontinued Isosorbide Mononitrate ER [Imdur] 30 mg PO DAILY #30 tab lisinopriL [Zestril] 2.5 mg PO DAILY #30 tab Diltiazem Cd [Cardizem CD] 120 mg PO DAILY #30 cap Discharge Medication List ARIPiprazole [Abilify] 22.5 mg PO DAILY 09/22/23 [History] traZODone HCL 150 mg PO HS PRN 09/22/23 [History] Aspirin 81 mg PO DAILY #30 tab 09/27/23 [Rx] Clopidogrel [Plavix] 75 mg PO DAILY #30 tab 09/27/23 [Rx] Insulin Aspart [NovoLOG Flexpen] See Protocol SQ AC-TID 12/01/23 [History] Nitroglycerin Sl Tabs [Nitrostat] 0.4 mg SUBLINGUAL Q5M PRN 12/01/23 [History] Atorvastatin [Lipitor] 40 mg PO DAILY 08/05/24 [History] DULoxetine HCL [Cymbalta] 60 mg PO DAILY 08/05/24 [History] Insulin Degludec/Liraglutide [Xultophy 100 Unit-3.6MG/ml Pen] 50 unit SQ DAILY 08/05/24 [History] lamoTRIgine [LaMICtal] 100 mg PO DAILY 08/05/24 [History] Dapagliflozin Propanediol [Farxiga] 10 mg PO DAILY 90 Days #90 tab 08/06/24 [Rx] Diltiazem Cd [Cardizem CD] 180 mg PO DAILY cap 08/06/24 [Rx] Isosorbide Mononitrate ER [Imdur] 60 mg PO DAILY #30 tab 08/06/24 [Rx] Losartan [Cozaar] 25 mg PO DAILY tab 08/06/24 [Rx] Ranolazine [Ranexa] 500 mg PO Q12HR tab 08/06/24 [Rx] Follow up Appointment(s)/Referral(s): Jorge Tamez MD [Medical Doctor] - 1 Week Ariadna Lambert MD [Primary Care Provider] - 1-2 days Patient Instructions/Handouts: Chest Pain (ED) Discharge Disposition: HOME SELF-CARE
[2024-08-06] MEDS: ISOSORBIDE MONONITRATE ER 30 MG TAB.ER.24H PO SCH (10:36)
[2024-08-06] MEDS: ISOSORBIDE MONONITRATE ER 60 MG TAB.ER.24H PO SCH (10:53)
[2024-08-06 11:43] LABS: Chol/HDL Ratio 2.54 Ratio; LDL Cholesterol,Calculated 85.6 mg/dL (0.0-131.0); VLDL Calculation 11.92 mg/dL (5.00-40.00)
[2024-08-06 14:29] VITALS: BP 143/89; PULSE 89
[2024-08-07] MEDS ORDERED: DILTIAZEM CD 180 MG CAP.ER.24H PO SCH (09:00)
== END 2024-08-06 10:58 | disposition home or self-care (01) ==
LOC: EC 21:46 → 6NMEDSUR 08-05 00:08
PROVIDERS: ADMIT Hospitalist; ATTEND Hospitalist
DX: R07.89 Other chest pain (principal); R06.09 Other forms of dyspnea; R61 Generalized hyperhidrosis; R00.2 Palpitations; R53.1 Weakness; I10 Essential (primary) hypertension; E11.9 Type 2 diabetes mellitus without complications; I25.10 Atherosclerotic heart disease of native coronary artery without angina pectoris; E78.5 Hyperlipidemia, unspecified; E66.9 Obesity, unspecified; Z68.41 Body mass index [BMI] 40.0-44.9, adult; I25.2 Old myocardial infarction; I49.3 Ventricular premature depolarization; I42.9 Cardiomyopathy, unspecified; I25.119 Atherosclerotic heart disease of native coronary artery with unspecified angina pectoris; Z87.891 Personal history of nicotine dependence; Z79.899 Other long term (current) drug therapy; Z79.82 Long term (current) use of aspirin; Z79.02 Long term (current) use of antithrombotics/antiplatelets; Z88.8 Allergy status to other drugs, medicaments and biological substances; Z79.4 Long term (current) use of insulin; Z80.9 Family history of malignant neoplasm, unspecified
CPT/HCPCS: 96376 ×3; 96366; 96375 ×2; 96365; 99291; 36415; 93005 ×2; 93306; 85379; 83880; 80061; 80053; 83690; 83735; 84100; 84484 ×2; 85025; 85049 ×2; 85610; 85730 ×2; 71045; G0378 ×2; J2270 ×2; J2405 ×2; Q9957; J1644 ×2; J1171; J1920; J2470

== ENCOUNTER 2024-12-25 19:21 | Observation (INO) | payer MEDICARE ==
--- NOTE | 2024-12-25 19:39 | ED ---
General Adult HPI - General Stated complaint: Chest Pain Time Seen by Provider: 12/25/24 19:23 Source: patient, EMS, RN notes reviewed, old records reviewed Limitations: no limitations - History of Present Illness Initial comments: 49-year-old female history of cardiomyopathy with low ejection fraction c urrently wearing a LifeVest presents for evaluation of chest pain which has been present throughout the day today. Patient states she has also gained 5 pounds and is felt like she is retaining water. She contacted her sample tailor today who recommended she present to the emergency department for evaluation. - Related Data Home Medications Medication Instructions Recorded Confirmed ARIPiprazole [Abilify] 15 mg PO DAILY 09/22/23 12/25/24 Nitroglycerin Sl Tabs [Nitrostat] 0.4 mg SUBLINGUAL Q5M PRN 12/01/23 12/25/24 Atorvastatin [Lipitor] 40 mg PO DAILY 08/05/24 12/25/24 Isosorbide Mononitrate ER [Imdur] 30 mg PO BID 11/28/24 12/25/24 DULoxetine HCL [Cymbalta] 30 mg PO DAILY 12/25/24 12/25/24 DULoxetine HCL [Cymbalta] 60 mg PO DAILY 12/25/24 12/25/24 Insulin Aspart [NovoLOG Flexpen] 12 units SQ TID-W/MEALS 12/25/24 12/25/24 Insulin Glargine (Lantus) [Lantus 15 unit SQ DAILY@0700 12/25/24 12/25/24 Vial] lamoTRIgine 100 mg PO DAILY 12/25/24 12/25/24 Previous Rx's Medication Instructions Recorded Aspirin 81 mg PO DAILY #30 tab 09/27/23 Clopidogrel [Plavix] 75 mg PO DAILY #30 tab 09/27/23 Furosemide [Lasix] 40 mg PO DAILY #30 tab 12/01/24 Losartan [Cozaar] 25 mg PO DAILY #30 tab 12/01/24 Metoprolol Tartrate [Lopressor] 25 mg PO BID #60 tab 12/01/24 Phenol/Glycerin [Chloraseptic Max 1 spray MUCOUS MEM QID #118 ml 12/01/24 1.5-33% [place]] Spironolactone [Aldactone] 25 mg PO DAILY #30 tab 12/01/24 traZODone HCL 150 mg PO HS #30 12/01/24 Allergies Allergy/AdvReac Type Severity Reaction Status Date / Time metformin AdvReac Diarrhea Verified 12/25/24 21:16 Review of Systems ROS Statement: Those systems with pertinent positive or pertinent negative responses have been documented in the HPI. ROS Other: All systems not noted in ROS Statement are negative. Past Medical History Past Medical History: Diabetes Mellitus, Hyperlipidemia, Hypertension, Myocardial Infarction ([place]) Last Myocardial Infarction Date:: 08/2023 History of Any Multi-Drug Resistant Organisms: None Reported Past Surgical History: Bariatric Surgery, Cholecystectomy Past Anesthesia/Blood Transfusion Reactions: No Reported Reaction Past Psychological History: Bipolar Smoking Status: Former smoker Past Alcohol Use History: None Reported Past Drug Use History: Marijuana - Past Family History Mother Family Medical History: Deep Vein Thrombosis (DVT) Father History Unknown: Yes General Exam Limitations: no limitations General appearance: alert, in no apparent distress Head exam: Present: atraumatic, normocephalic Eye exam: Present: normal appearance, PERRL Respiratory exam: Present: rales. Absent: respiratory distress, wheezes Cardiovascular Exam: Present: regular rate, normal rhythm GI/Abdominal exam: Present: soft. Absent: distended, tenderness, guarding, rebound Extremities exam: Present: normal inspection, normal capillary refill. Absent: pedal edema Neurological exam: Present: alert, oriented X3, CN II-XII intact. Absent: motor sensory deficit Psychiatric exam: Present: normal affect, normal mood Skin exam: Present: warm, dry, intact Course Vital Signs 12/25/24 19:55 Temperature 98.6 F Pulse Rate 86 Respiratory 18 Rate Blood Pressure 128/80 O2 Sat by Pulse 97 Oximetry Medical Decision Making - Medical Decision Making Was pt. sent in by a medical professional or institution (, PA, WOOD MILLING MACHINE OPERATOR, urgent care, hospital, or detention...) When possible be specific @ -No Did you speak to anyone other than the patient for history (EMS, parent, family, police, friend...)? What history was obtained from this source @ -No Did you review nursing and triage notes (agree or disagree)? Why? @ -I reviewed and agree with nursing and triage notes Were old charts reviewed (outside hosp., previous admission, EMS record, old EKG, old radiological studies, urgent care reports/EKG's, detention records)? Report findings @ -No old charts were reviewed Differential Chest Pain: Stable Angina, Unstable Angina, STEMI, NSTEMI Aortic Dissection, Pneumothorax, Musculoskeletal, Esophageal Spasm GERD, Cholecystitis, Pancreatitis, Zoster, this is not meant to be an all-inclusive list. EKG interpreted by me (3pts min.). @ -Sinus rhythm rate of 81, NC interval 169, QRS duration 111, QTc [address] segment elevation X-rays interpreted by me (1pt min.). @Chest x-ray clear no acute cardiopulmonary findings CT interpreted by me (1pt min.). @ -None done U/S interpreted by me (1pt. min.). @ -None done What testing was considered but not performed or refused? (CT, X-rays, U/S, labs)? Why? @ -None What meds were considered but not given or refused? Why? @ -None Did you discuss the management of the patient with other professionals (professionals i.e. , PA, WOOD MILLING MACHINE OPERATOR, lab, RT, psych nurse, social media analyst, game bird farmer, teacher, horticultural technical officer, family service caseworker)? Give summary @ -Case discussed with Deloris griffiths for [facility] Was smoking cessation discussed for >3mins.? @ -No Was critical care preformed (if so, how long)? @ -No Were there social determinants of health that impacted care today? How? (Homelessness, low income, unemployed, alcoholism, drug addiction, transportation, low edu. Level, literacy, decrease access to med. care, prison, rehab)? @ -No Was there de-escalation of care discussed even if they declined (Discuss DNR or withdrawal of care, Hospice)? DNR status @ -No What co-morbidities impacted this encounter? (DM, HTN, Smoking, COPD, CAD, Cancer, CVA, ARF, Chemo, Hep., AIDS, mental health diagnosis, sleep apnea, morbid obesity)? @ -Nonischemic cardiomyopathy Was patient admitted / discharged? Hospital course, mention meds given and route, prescriptions, significant lab abnormalities, going to OR and other pertinent info. @ -[49-year-old female with cardiomyopathy, currently wearing a LifeVest presenting with chest pain. EKG sinus without ST segment elevation. Chest x- ray is clear, patient has a normal CBC, normal CMP, negative initial troponin. Given the patient's history and risk factors she will be observed for telemetry, serial cardiac enzymes, cardiology consultation. Undiagnosed new problem with uncertain prognosis? @ -No Drug Therapy requiring intensive monitoring for toxicity (Heparin, Nitro, Insulin, Cardizem)? @ -No Were any procedures done? @ -No Diagnosis/symptom? @ -[Chest pain Acute, or Chronic, or Acute on Chronic? @ -Acute Uncomplicated (without systemic symptoms) or Complicated (systemic symptoms)? @ -[default Side effects of treatment? @ -No Exacerbation, Progression, or Severe Exacerbation? @ -No Poses a threat to life or bodily function? How? (Chest pain, [place], NC, pneumonia, PE, COPD, DKA, ARF, appy, cholecystitis, CVA, Diverticulitis, Homicidal, Suicidal, threat to staff... and all critical care pts) @Yes, arrhythmia, ACS, heart failure - Lab Data Result diagrams: 12/25/24 20:27 12/25/24 20:27 Lab Results 12/25/24 12/25/24 12/25/24 Range/Units 20:27 20:27 20:27 WBC 5.6 (3.8-10.6) k/uL RBC 4.56 (3.80-5.40) m/uL Hgb 12.6 (11.4-16.0) gm/dL Hct 40.9 (34.0-46.0) % MCV 89.7 (80.0-100.0) fL MCH 27.6 (25.0-35.0) pg MCHC 30.7 L (31.0-37.0) g/dL RDW 13.0 (11.5-15.5) % Plt Count 188 (150-450) k/uL MPV 8.5 Neutrophils % 47 % Lymphocytes % 39 % Monocytes % 9 % Eosinophils % 2 % Basophils % 1 % Neutrophils # 2.6 (1.3-7.7) k/uL Lymphocytes # 2.2 (1.0-4.8) k/uL Monocytes # 0.5 (0-1.0) k/uL Eosinophils # 0.1 (0-0.7) k/uL Basophils # 0.0 (0-0.2) k/uL PT 9.9 L (10.0-12.5) sec INR 0.9 (<1.2) APTT 23.8 (22.0-30.0) sec Sodium 134 L (137-145) mmol/L Potassium 4.1 (3.5-5.1) mmol/L Chloride 101 (98-107) mmol/L Carbon Dioxide 25 (22-30) mmol/L Anion Gap 8 mmol/L BUN 19 H (7-17) mg/dL Creatinine 0.59 (0.52-1.04) mg/dL Est GFR (CKD-EPI)AfAm >90 (>60 ml/min/1.73 sqM) Est GFR (CKD-EPI)NonAf >90 (>60 ml/min/1.73 sqM) Glucose 296 H (74-99) mg/dL Calcium 9.1 (8.4-10.2) mg/dL Magnesium 1.9 (1.6-2.3) mg/dL Total Bilirubin 0.4 (0.2-1.3) mg/dL AST 18 (14-36) U/L ALT 12 (4-34) U/L Alkaline Phosphatase 73 (38-126) U/L Troponin I (0.000-0.034) ng/mL NT-Pro-B Natriuret Pep 506 pg/mL Total Protein 6.0 L (6.3-8.2) g/dL Albumin 3.7 (3.5-5.0) g/dL /01/16 Range/Units 20:27 WBC (3.8-10.6) k/uL RBC (3.80-5.40) m/uL Hgb (11.4-16.0) gm/dL Hct (34.0-46.0) % MCV (80.0-100.0) fL MCH (25.0-35.0) pg MCHC (31.0-37.0) g/dL RDW (11.5-15.5) % Plt Count (150-450) k/uL MPV Neutrophils % % Lymphocytes % % Monocytes % % Eosinophils % % Basophils % % Neutrophils # (1.3-7.7) k/uL Lymphocytes # (1.0-4.8) k/uL Monocytes # (0-1.0) k/uL Eosinophils # (0-0.7) k/uL Basophils # (0-0.2) k/uL PT (10.0-12.5) sec INR (<1.2) APTT (22.0-30.0) sec Sodium (137-145) mmol/L Potassium (3.5-5.1) mmol/L Chloride (98-107) mmol/L Carbon Dioxide (22-30) mmol/L Anion Gap mmol/L BUN (7-17) mg/dL Creatinine (0.52-1.04) mg/dL Est GFR (CKD-EPI)AfAm (>60 ml/min/1.73 sqM) Est GFR (CKD-EPI)NonAf (>60 ml/min/1.73 sqM) Glucose (74-99) mg/dL Calcium (8.4-10.2) mg/dL Magnesium (1.6-2.3) mg/dL Total Bilirubin (0.2-1.3) mg/dL AST (14-36) U/L ALT (4-34) U/L Alkaline Phosphatase (38-126) U/L Troponin I <0.012 (0.000-0.034) ng/mL NT-Pro-B Natriuret Pep pg/mL Total Protein (6.3-8.2) g/dL Albumin (3.5-5.0) g/dL Disposition Clinical Impression: Chest pain Disposition: ADMITTED IP TO THIS HOSP Condition: Stable Is patient prescribed a controlled substance at d/c from ED?: No Referrals: Ariadna Lambert MD [Primary Care Provider] - 1-2 days Time of Disposition: 21:40
[2024-12-25 20:34] LABS: Basophils % (A) 1 %; Eosinophils # (A) 0.1 k/uL (0-0.7); Eosinophils % (A) 2 %; HCT 40.9 % (34.0-46.0); HGB 12.6 gm/dL (11.4-16.0); Lymphocytes # (A) 2.2 k/uL (1.0-4.8); Lymphocytes % (A) 39 %; MCH 27.6 pg (25.0-35.0); MCHC 30.7 g/dL (31.0-37.0); MCV 89.7 fL (80.0-100.0); Mean Platelet Volume 8.5; Monocytes # (A) 0.5 k/uL (0-1.0); Monocytes % (A) 9 %; Neutrophils # (A) 2.6 k/uL (1.3-7.7); Neutrophils % (A) 47 %; Platelet Count 188 k/uL (150-450); RBC 4.56 m/uL (3.80-5.40); WBC 5.6 k/uL (3.8-10.6)
[2024-12-25 20:45] LABS: INR 0.9 (<1.2); Partial Thromboplastin Time 23.8 sec (22.0-30.0); Prothrombin Time 9.9 sec (10.0-12.5)
--- NOTE | 2024-12-25 20:45 | XR ---
EXAMINATION TYPE: XR chest 2V DATE OF EXAM: 12/25/2024 8:35 PM COMPARISON: Chest radiographs from 11/30/2024 CLINICAL INDICATION: Female, 49 years old with history of Chest Pain; [facility] TECHNIQUE: XR chest 2V Frontal and lateral views of the chest. FINDINGS: Lungs/Pleura: There is no evidence of pleural effusion, focal consolidation, or pneumothorax. Pulmonary vascularity: Unremarkable. Heart/mediastinum: Cardiomediastinal silhouette is unremarkable. A loop recorder projects over the le ft thorax over the heart. Musculoskeletal: No acute osseous pathology. IMPRESSION: No acute cardiopulmonary disease/process. [facility], , 12/25/2024 8:43 PM
[2024-12-25 21:01] LABS: ALT 12 U/L (4-34); AST 18 U/L (14-36); African American GFR (CKD) >90 (>60 ml/min/1.73 sqM); Albumin 3.7 g/dL (3.5-5.0); Alkaline Phosphatase 73 U/L (38-126); Anion Gap 8 mmol/L; Blood Urea Nitrogen 19 mg/dL (7-17); Calcium 9.1 mg/dL (8.4-10.2); Carbon Dioxide 25 mmol/L (22-30); Chloride 101 mmol/L (98-107); Glucose 296 mg/dL (74-99); Magnesium 1.9 mg/dL (1.6-2.3); Non-African American GFR(CKD) >90 (>60 ml/min/1.73 sqM); Potassium 4.1 mmol/L (3.5-5.1); Sodium 134 mmol/L (137-145); Total Bilirubin 0.4 mg/dL (0.2-1.3)
[2024-12-25 21:07] LABS: NT-Pro-B-Type Natriuretic Pept 506 pg/mL
[2024-12-25] MEDS: ONDANSETRON 4 MG/2 ML VIAL IVP STA (21:34)
[2024-12-25] MEDS: HYDROmorphone 0.5 MG/0.5 ML SYRINGE IVP STA (21:35)
[2024-12-25] MEDS ORDERED: NALOXONE 0.4 MG/ML 1 ML VIAL IV PRN (21:37)
[2024-12-25] MEDS ORDERED: ACETAMINOPHEN TAB 325 MG TAB PO PRN (21:37)
[2024-12-25] MEDS: ASPIRIN 325 MG TAB PO STA (22:41)
[2024-12-26] MEDS: HYDROmorphone 0.5 MG/0.5 ML SYRINGE IVP PRN (01:53)
[2024-12-26 03:07] VITALS: RESP 16
[2024-12-26] MEDS ORDERED: DEXTROSE 50% SYRINGE 50 ML IVP PRN ×2 (05:23)
[2024-12-26] MEDS: ONDANSETRON 4 MG/2 ML VIAL IVP PRN (05:25)
[2024-12-26 06:16] LABS: Glucose,Whole Blood 157 mg/dL (70-110)
[2024-12-26] MEDS: INSULIN LISPRO (HumaLOG) 100 UNIT/ML 10 mL VL SQ SCH (06:22)
[2024-12-26] MEDS: ATORVASTATIN 40 MG TAB PO SCH (09:04)
[2024-12-26] MEDS: FUROSEMIDE 40 MG TAB PO SCH (09:04)
[2024-12-26] MEDS: CLOPIDOGREL 75 MG TAB PO SCH (09:04)
[2024-12-26] MEDS: ASPIRIN 81 MG PO SCH (09:04)
[2024-12-26] MEDS: lamoTRIgine 100 MG TAB PO SCH (09:04)
[2024-12-26] MEDS: DULoxetine HCL 30 MG CAPSULE.DR PO SCH (09:05)
[2024-12-26] MEDS: METOPROLOL TARTRATE 25 MG TAB PO SCH (09:05)
[2024-12-26] MEDS: DULoxetine HCL 60 MG CAPSULE.DR PO SCH (09:05)
[2024-12-26] MEDS: SPIRONOLACTONE 25 MG TAB PO SCH (09:05)
[2024-12-26] MEDS: DAPAGLIFLOZIN PROPANEDIOL 10 MG TABLET PO SCH (09:05)
[2024-12-26] MEDS: ISOSORBIDE MONONITRATE ER 30 MG TAB.ER.24H PO SCH (09:05)
[2024-12-26] MEDS: INSULIN GLARGINE (LANTUS) 100 UNIT/ML SYR SQ SCH (09:05)
[2024-12-26] MEDS: LOSARTAN 25 MG TAB PO SCH (09:05)
[2024-12-26] MEDS: ARIPiprazole 15 MG TAB PO SCH (09:05)
[2024-12-26 09:31] VITALS: BP 102/70; PULSE 92; TEMP 97.8
--- NOTE | 2024-12-26 10:25 | P.CRDCN ---
History of Present Illness Consult date: 12/26/24 Consult reason: chest pain History of present illness: This is a 49-year-old female patient of Dr. Tamez with past medical history of [place] with suspected vasospastic angina, nonischemic cardiomyopathy with a EF of 30 to 35% reduced to 15-20 % in November 2024 due to noncompliance and uncontrolled diabetes, obesity, diabetes mellitus type 2, remote history of tobacco use, vaping. Patient had a recent hospitalization for NSTEMI and underwent cardiac catheterization at the time showing only mild disease. Patient was found to have a reduction in her EF to 15 to 20% and was placed on a LifeVest at discharge. We have been asked to evaluate the patient for chest pain. Patient states that she came into the hospital because she has heaviness in her chest. Did not occur when she was active but occurred at rest. Pain has been coming and going intermittently but yesterday it was more intense. The chest pain is completely gone now. She states she has also gained 5 pounds as of yesterday. She states her breathing was a little bit labored. No dizziness or lightheadedness, no palpitations. She states she had a little lower extremit y edema. She denies cough no fever. No blood in her stools. Regarding LifeVest, she states she is wearing it now and is scheduled to continue this through February. Blood pressure 122/85, heart rate 73, pulse ox 98% on room air. -EKG: Sinus rhythm with LVH, LAD. -Chest x-ray: No acute process. -Laboratory studies: CBC CMP unremarkable besides blood sugar of 296. Troponin negative x 3. proBNP 506. -Home cardiac medications: Aspirin 81 mg daily, atorvastatin 40 mg daily, Plavix 75 mg daily, Lasix 40 mg daily, Imdur 30 mg twice daily, losartan 25 mg daily, Lopressor 25 mg twice daily, Nitrostat, spironolactone 25 mg daily, patient also on nicotine patch. -Left heart catheterization 11/27/2024 reveals mild nonobstructive CAD. Elevated left-sided filling pressure. -Echocardiogram performed 11/2024 revealed EF of 15 to 20%. Review Of Systems: At the time of my exam: CONSTITUTIONAL: Denies fever or chills. HEENT: Denies blurred vision, vision changes, or eye pain. Denies hemoptysis CARDIOVASCULAR: Denies chest pain. Denies orthopnea. Denies PND. Denies palpitations RESPIRATORY: Denies shortness of breath. GASTROINTESTINAL: Denies abdominal pain. Denies nausea or vomiting. HEMATOLOGIC: Denies bleeding disorders. GENITOURINARY: Denies any blood in urine. SKIN: Denies puritis. Denies rash. Physical examination: Gen: This is a 49-year-old female in no acute distress VS: reviewed HEENT: Head is atraumatic, normocephalic. Pupils equal, round. Sclerae is anicteric. NECK: Supple. No JVD. LUNGS: Clear to auscultation. No wheezes or rhonchi. No intercostal retractions. HEART: Regular rate and rhythm. No murmur. ABDOMEN: Soft No tenderness. EXTREMITIES: No pedal edema. No calf tenderness. NEUROLOGICAL: Patient is awake, alert and oriented x3. 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 No need to repeat echocardiogram Thank you kindly for this consultation. Nurse practitioner note has been reviewed, I agree with documented findings and plan of care. Patient was seen and examined. Past Medical History Past Medical History: Diabetes Mellitus, Hyperlipidemia, Hypertension, Myocardial Infarction ([place]) Last Myocardial Infarction Date:: 08/2023 History of Any Multi-Drug Resistant Organisms: None Reported Past Surgical History: Bariatric Surgery, Cholecystectomy Past Anesthesia/Blood Transfusion Reactions: No Reported Reaction Past Psychological History: Bipolar Smoking Status: Former smoker Past Alcohol Use History: None Reported Additional Past Alcohol Use History / Comment(s): 04/27/24 quit Past Drug Use History: Marijuana Additional Drug Use History / Comment(s): refrain 24 hours prior to procedure - Past Family History Mother Family Medical History: Deep Vein Thrombosis (DVT) Father History Unknown: Yes Medications and Allergies Home Medications Medication Instructions Recorded Confirmed Type Ferrous Sulfate [Iron (65 MG 325 mg PO DAILY 03/30/19 03/30/19 History Elemental)] ARIPiprazole [Abilify] 20 mg PO HS #14 tab 04/11/19 Rx Citalopram Hydrobromide [CeleXA] 10 mg PO DAILY #14 tab 04/11/19 Rx Gabapentin 600 mg PO TID #42 tablet 04/11/19 Rx Losartan [Cozaar] 25 mg PO DAILY #14 tab 04/11/19 Rx Melatonin 5 mg PO HS #28 tablet 04/11/19 Rx Nicotine 21Mg/24Hr Patch [Habitrol] 1 patch TRANSDERM DAILY #28 patch 04/11/19 Rx OLANZapine [ZyPREXA] 5 mg PO TID PRN #42 tab 04/11/19 Rx traZODone HCL 100 mg PO HS #14 tab 04/11/19 Rx ARIPiprazole [Abilify] 15 mg PO DAILY 09/22/23 12/25/24 History Aspirin 81 mg PO DAILY #30 tab 09/27/23 12/25/24 Rx Clopidogrel [Plavix] 75 mg PO DAILY #30 tab 09/27/23 12/25/24 Rx Nitroglycerin Sl Tabs [Nitrostat] 0.4 mg SUBLINGUAL Q5M PRN 12/01/23 12/25/24 History Atorvastatin [Lipitor] 40 mg PO DAILY 08/05/24 12/25/24 History Isosorbide Mononitrate ER [Imdur] 30 mg PO BID 11/28/24 12/25/24 History Furosemide [Lasix] 40 mg PO DAILY #30 tab 12/01/24 12/25/24 Rx Losartan [Cozaar] 25 mg PO DAILY #30 tab 12/01/24 12/25/24 Rx Metoprolol Tartrate [Lopressor] 25 mg PO BID #60 tab 12/01/24 12/25/24 Rx Phenol/Glycerin [Chloraseptic Max 1 spray MUCOUS MEM QID #118 ml 12/01/24 12/25/24 Rx 1.5-33% [place]] Spironolactone [Aldactone] 25 mg PO DAILY #30 tab 12/01/24 12/25/24 Rx traZODone HCL 150 mg PO HS #30 12/01/24 12/25/24 Rx DULoxetine HCL [Cymbalta] 30 mg PO DAILY 12/25/24 12/25/24 History DULoxetine HCL [Cymbalta] 60 mg PO DAILY 12/25/24 12/25/24 History Insulin Aspart [NovoLOG Flexpen] 12 units SQ TID-W/MEALS 12/25/24 12/25/24 History Insulin Glargine (Lantus) [Lantus 15 unit SQ DAILY@0700 12/25/24 12/25/24 History Vial] lamoTRIgine 100 mg PO DAILY 12/25/24 12/25/24 History Allergies Allergy/AdvReac Type Severity Reaction Status Date / Time ketorolac [From Toradol] Allergy Unknown Verified 12/26/24 08:12 metformin AdvReac Diarrhea Verified 12/26/24 08:12 Physical Exam Vitals: Vital Signs Temp Pulse Pulse Resp BP BP Pulse Ox 12/26/24 02:00 73 12/26/24 01:24 97.5 F L 73 16 122/85 98 12/26/24 00:54 77 18 94/60 97 12/25/24 19:55 98.6 F 86 18 128/80 97 Intake and Output 12/25/24 12/26/24 12/26/24 22:59 06:59 14:59 Other: # Voids 2 Weight 107.955 kg 107.955 kg Results 12/25/24 20:27 12/25/24 20:27 Cardiac Enzymes 12/25/24 12/25/24 12/25/24 Range/Units 20:27 20:27 23:44 AST 18 (14-36) U/L Troponin I <0.012 <0.012 (0.000-0.034) ng/mL 12/26/24 Range/Units 05:06 AST (14-36) U/L Troponin I <0.012 (0.000-0.034) ng/mL Coagulation 12/25/24 Range/Units 20:27 PT 9.9 L (10.0-12.5) sec APTT 23.8 (22.0-30.0) sec CBC 12/25/24 Range/Units 20:27 WBC 5.6 (3.8-10.6) k/uL RBC 4.56 (3.80-5.40) m/uL Hgb 12.6 (11.4-16.0) gm/dL Hct 40.9 (34.0-46.0) % Plt Count 188 (150-450) k/uL Comprehensive Metabolic Panel 12/25/24 Range/Units 20:27 Sodium 134 L (137-145) mmol/L Potassium 4.1 (3.5-5.1) mmol/L Chloride 101 (98-107) mmol/L Carbon Dioxide 25 (22-30) mmol/L BUN 19 H (7-17) mg/dL Creatinine 0.59 (0.52-1.04) mg/dL Glucose 296 H (74-99) mg/dL Calcium 9.1 (8.4-10.2) mg/dL AST 18 (14-36) U/L ALT 12 (4-34) U/L Alkaline Phosphatase 73 (38-126) U/L Total Protein 6.0 L (6.3-8.2) g/dL Albumin 3.7 (3.5-5.0) g/dL Current Medications Generic Name Dose Route Start Last Admin Trade Name Freq PRN Reason Stop Dose Admin Acetaminophen 650 mg 12/25/24 21:37 Acetaminophen Tab 325 Mg Tab PO Q6HR PRN Mild Pain or Fever > 100.5 Aripiprazole 15 mg 12/26/24 09:00 Aripiprazole 15 Mg Tab PO DAILY [facility] Aspirin 81 mg 12/26/24 09:00 Aspirin 81 Mg PO DAILY [facility] Atorvastatin Calcium 40 mg 12/26/24 09:00 Atorvastatin 40 Mg Tab PO DAILY [facility] Clopidogrel Bisulfate 75 mg 12/26/24 09:00 Clopidogrel 75 Mg Tab PO DAILY [facility] Dextrose/Water 25 ml 12/26/24 05:23 Dextrose 50% Syringe 50 Ml IVP PER PROTOCOL PRN Hypoglycemia Protocol Dextrose/Water 50 ml 12/26/24 05:23 Dextrose 50% Syringe 50 Ml IVP PER PROTOCOL PRN Hypoglycemia Protocol Duloxetine HCl 30 mg 12/26/24 09:00 Duloxetine Hcl 30 Mg Capsule. PO DAILY [facility] Duloxetine HCl 60 mg 12/26/24 09:00 Duloxetine Hcl 60 Mg Capsule. PO DAILY [facility] Hydromorphone HCl 0.5 mg 12/25/24 21:37 12/26/24 05:24 Hydromorphone 0.5 Mg/0.5 Ml Syringe IVP 0.5 mg Q3HR PRN Administration Moderate Pain (Scale 4 to 6) Insulin Glargine 15 unit 12/26/24 07:00 Insulin Glargine (Lantus) 100 Unit/Ml Syr SQ DAILY@0700 [facility] Insulin Human Lispro 0 unit 12/26/24 07:30 12/26/24 06:22 Insulin Lispro (Humalog) 100 Unit/Ml 10 Ml Vl SQ Not Given ACHS [facility] Protocol Isosorbide Mononitrate 30 mg 12/26/24 09:00 Isosorbide Mononitrate Er 30 Mg Tab.Er.24h PO BID [facility] Lamotrigine 100 mg 12/26/24 09:00 Lamotrigine 100 Mg Tab PO DAILY [facility] Losartan Potassium 25 mg 12/26/24 09:00 Losartan 25 Mg Tab PO DAILY [facility] Metoprolol Tartrate 25 mg 12/26/24 09:00 Metoprolol Tartrate 25 Mg Tab PO BID [facility] Naloxone HCl 0.2 mg 12/25/24 21:37 Naloxone 0.4 Mg/Ml 1 Ml Vial IV Q2M PRN Opioid Reversal Ondansetron HCl 4 mg 12/25/24 21:37 12/26/24 05:25 Ondansetron 4 Mg/2 Ml Vial IVP 4 mg Q8HR PRN Administration Nausea And Vomiting Trazodone HCl 150 mg 12/26/24 21:00 Trazodone Hcl 50 Mg Tab PO [facility] Intake and Output 12/25/24 12/26/24 12/26/24 22:59 06:59 14:59 Other: # Voids 2 Weight 107.955 kg 107.955 kg 12/25/24 20:27 12/25/24 20:27
[2024-12-26 12:37] LABS: Glucose,Whole Blood 151 mg/dL (70-110)
--- NOTE | 2024-12-26 14:00 | P.HPIM ---
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 Patient was complaining of some shortness of breath chest x-ray did not show any pulmonary edema patient is saturating at 98% on room air patient still has some pain in the chest. Chest x-ray did not show any pneumonia. Patient was eval by cardiology they are not recommending any further intervention cleared for discharge. EKG sinus rhythm with LVH. REVIEW OF SYSTEMS: All other systems are negative except those mentioned in the HPI PHYSICAL EXAMINATION: GENERAL: The patient is alert and oriented x3, not in any acute distress. Well developed, well nourished. HEENT: Pupils are round and equally reacting to light. EOMI. No scleral icterus. No conjunctival pallor. Normocephalic, atraumatic. No pharyngeal erythema. No thyromegaly. CARDIOVASCULAR: S1 and S2 present. No murmurs, rubs, or gallops. PULMONARY: Chest is clear to auscultation, no wheezing or crackles. ABDOMEN: Soft, nontender, nondistended, normoactive bowel sounds. No palpable organomegaly. MUSCULOSKELETAL: No joint swelling or deformity. EXTREMITIES: No cyanosis, clubbing, or pedal edema. NEUROLOGICAL: Gross neurological examination did not reveal any focal deficits. SKIN: No rashes. Assessment and plan -Chest pain rule out acute coronary syndromes rule out pulmonary embolism with D-dimer if that is negative patient will be discharged today -Nonischemic cardiomyopathy, congestive heart failure systolic dysfunction EF of around 15 to 20% patient is not any acute exacerbation, patient will continue her Aldactone, Jardiance, Imdur, Aldactone, beta-heriberto and statin -Type 2 diabetes mellitus -Obesity -Depression If D-dimer is negative patient will be discharged today Past Medical History Past Medical History: Diabetes Mellitus, Hyperlipidemia, Hypertension, Myocardial Infarction ([place]) Additional Past Medical History / Comment(s): Pt states "None" when asked if she has medical history Last Myocardial Infarction Date:: 08/2023 History of Any Multi-Drug Resistant Organisms: None Reported Past Surgical History: Bariatric Surgery, Cholecystectomy Additional Past Surgical History / Comment(s): Pt states "No" Past Anesthesia/Blood Transfusion Reactions: No Reported Reaction Past Psychological History: Bipolar Smoking Status: Former smoker Past Alcohol Use History: None Reported Additional Past Alcohol Use History / Comment(s): 04/27/24 quit Past Drug Use History: Marijuana Additional Drug Use History / Comment(s): refrain 24 hours prior to procedure - Past Family History Mother Family Medical History: Deep Vein Thrombosis (DVT) Father History Unknown: Yes Medications and Allergies Home Medications Medication Instructions Recorded Confirmed Type Ferrous Sulfate [Iron (65 MG 325 mg PO DAILY 03/30/19 03/30/19 History Elemental)] ARIPiprazole [Abilify] 20 mg PO HS #14 tab 04/11/19 Rx Citalopram Hydrobromide [CeleXA] 10 mg PO DAILY #14 tab 04/11/19 Rx Gabapentin 600 mg PO TID #42 tablet 04/11/19 Rx Losartan [Cozaar] 25 mg PO DAILY #14 tab 04/11/19 Rx Melatonin 5 mg PO HS #28 tablet 04/11/19 Rx Nicotine 21Mg/24Hr Patch [Habitrol] 1 patch TRANSDERM DAILY #28 patch 04/11/19 Rx OLANZapine [ZyPREXA] 5 mg PO TID PRN #42 tab 04/11/19 Rx traZODone HCL 100 mg PO HS #14 tab 04/11/19 Rx ARIPiprazole [Abilify] 15 mg PO DAILY 09/22/23 12/25/24 History Aspirin 81 mg PO DAILY #30 tab 09/27/23 12/25/24 Rx Clopidogrel [Plavix] 75 mg PO DAILY #30 tab 09/27/23 12/25/24 Rx Nitroglycerin Sl Tabs [Nitrostat] 0.4 mg SUBLINGUAL Q5M PRN 12/01/23 12/25/24 History Atorvastatin [Lipitor] 40 mg PO DAILY 08/05/24 12/25/24 History Isosorbide Mononitrate ER [Imdur] 30 mg PO BID 11/28/24 12/25/24 History Furosemide [Lasix] 40 mg PO DAILY #30 tab 12/01/24 12/25/24 Rx Losartan [Cozaar] 25 mg PO DAILY #30 tab 12/01/24 12/25/24 Rx Metoprolol Tartrate [Lopressor] 25 mg PO BID #60 tab 12/01/24 12/25/24 Rx Phenol/Glycerin [Chloraseptic Max 1 spray MUCOUS MEM QID #118 ml 12/01/24 12/25/24 Rx 1.5-33% [place]] Spironolactone [Aldactone] 25 mg PO DAILY #30 tab 12/01/24 12/25/24 Rx traZODone HCL 150 mg PO HS #30 12/01/24 12/25/24 Rx DULoxetine HCL [Cymbalta] 30 mg PO DAILY 12/25/24 12/25/24 History DULoxetine HCL [Cymbalta] 60 mg PO DAILY 12/25/24 12/25/24 History Insulin Aspart [NovoLOG Flexpen] 12 units SQ TID-W/MEALS 12/25/24 12/25/24 History Insulin Glargine (Lantus) [Lantus 15 unit SQ DAILY@0700 12/25/24 12/25/24 History Vial] lamoTRIgine 100 mg PO DAILY 12/25/24 12/25/24 History Allergies Allergy/AdvReac Type Severity Reaction Status Date / Time ketorolac [From Toradol] Allergy Unknown Verified 12/26/24 08:12 metformin AdvReac Diarrhea Verified 12/26/24 08:12 Physical Exam Vitals: Vital Signs Temp Pulse Pulse Resp BP BP Pulse Ox 12/26/24 07:00 97.8 F 92 16 102/70 95 12/26/24 02:00 73 12/26/24 01:24 97.5 F L 73 16 122/85 98 12/26/24 00:54 77 18 94/60 97 12/25/24 19:55 98.6 F 86 18 128/80 97 Intake and Output 12/25/24 12/26/24 12/26/24 22:59 06:59 14:59 Intake Total 118 Balance 118 Intake: Oral 118 Other: # Voids 2 Weight 107.955 kg 107.955 kg Results CBC & Chem 7: 12/25/24 20:27 12/25/24 20:27 Labs: Abnormal Lab Results - Last 24 Hours (Table) 12/25/24 12/25/24 12/25/24 Range/Units 20:27 20:27 20:27 MCHC 30.7 L (31.0-37.0) g/dL PT 9.9 L (10.0-12.5) sec Sodium 134 L (137-145) mmol/L BUN 19 H (7-17) mg/dL Glucose 296 H (74-99) mg/dL POC Glucose (mg/dL) (70-110) mg/dL Total Protein 6.0 L (6.3-8.2) g/dL 12/26/24 12/26/24 Range/Units 06:09 12:35 MCHC (31.0-37.0) g/dL PT (10.0-12.5) sec Sodium (137-145) mmol/L BUN (7-17) mg/dL Glucose (74-99) mg/dL POC Glucose (mg/dL) 157 H 151 H (70-110) mg/dL Total Protein (6.3-8.2) g/dL Thrombosis Risk Factor Assmnt - Choose All That Apply Any of the Below Risk Factors Present?: Yes Each Factor Represents 1 point: Obesity (BMI >25) Other Risk Factors: No Other congenital or acquired thrombophilia - If yes, enter type in comment: No Thrombosis Risk Factor Assessment Total Risk Factor Score: 1 Thrombosis Risk Factor Assessment Level: Low Risk
--- NOTE | 2024-12-26 14:00 | P.DS ---
Providers Date of admission: 12/25/24 21:38 Attending physician: Samm Hobson Consults: 12/25/24 21:37 Consult Physician Routine Consulting Provider: Jorge Tamez Consult Reason/Comments: CP Do you want consulting provider notified?: Yes Primary care physician: [facility] Course: 49-year-old female with history of vasospastic angina and myocardial infarction secondary vasospastic angina and severe ischemic cardiomyopathy EF of around 15 to 20% on LifeVest came in with chest pain pleuritic in nature nonradiating. Patient was complaining of some shortness of breath chest x-ray did not show any pulmonary edema patient is saturating at 98% on room air patient still has some pain in the chest. Chest x-ray did not show any pneumonia. Patient was eval by cardiology they are not recommending any further intervention cleared for discharge. EKG sinus rhythm with LVH. REVIEW OF SYSTEMS: All other systems are negative except those mentioned in the HPI PHYSICAL EXAMINATION: GENERAL: The patient is alert and oriented x3, not in any acute distress. Well developed, well nourished. HEENT: Pupils are round and equally reacting to light. EOMI. No scleral icterus. No conjunctival pallor. Normocephalic, atraumatic. No pharyngeal erythema. No thyromegaly. CARDIOVASCULAR: S1 and S2 present. No murmurs, rubs, or gallops. PULMONARY: Chest is clear to auscultation, no wheezing or crackles. ABDOMEN: Soft, nontender, nondistended, normoactive bowel sounds. No palpable organomegaly. MUSCULOSKELETAL: No joint swelling or deformity. EXTREMITIES: No cyanosis, clubbing, or pedal edema. NEUROLOGICAL: Gross neurological examination did not reveal any focal deficits. SKIN: No rashes. Assessment and plan -Chest pain rule out acute coronary syndromes rule out pulmonary embolism with D-dimer if that is negative patient will be discharged today -Nonischemic cardiomyopathy, congestive heart failure systolic dysfunction EF of around 15 to 20% patient is not any acute exacerbation, patient will continue her Aldactone, Jardiance, Imdur, Aldactone, beta-heribetro and statin -Type 2 diabetes mellitus -Obesity -Depression If D-dimer is negative patient will be discharged today Patient Condition at Discharge: Stable Plan - Discharge Summary Discharge Rx Participant: Yes New Discharge Prescriptions: Continue Ferrous Sulfate [Iron (65 MG Elemental)] 325 mg PO DAILY ARIPiprazole [Abilify] 20 mg PO HS #14 tab Citalopram Hydrobromide [CeleXA] 10 mg PO DAILY #14 tab Losartan [Cozaar] 25 mg PO DAILY #14 tab Nicotine 21Mg/24Hr Patch [Habitrol] 1 patch TRANSDERM DAILY #28 patch Melatonin 5 mg PO HS #28 tablet traZODone HCL 100 mg PO HS #14 tab OLANZapine [ZyPREXA] 5 mg PO TID PRN #42 tab PRN Reason: Agitation Gabapentin 600 mg PO TID #42 tablet Aspirin 81 mg PO DAILY #30 tab Atorvastatin [Lipitor] 40 mg PO DAILY Losartan [Cozaar] 25 mg PO DAILY #30 tab Metoprolol Tartrate [Lopressor] 25 mg PO BID #60 tab Insulin Glargine (Lantus) [Lantus Vial] 15 unit SQ DAILY@0700 lamoTRIgine 100 mg PO DAILY ARIPiprazole [Abilify] 15 mg PO DAILY Clopidogrel [Plavix] 75 mg PO DAILY #30 tab Nitroglycerin Sl Tabs [Nitrostat] 0.4 mg SUBLINGUAL Q5M PRN PRN Reason: Chest Pain Isosorbide Mononitrate ER [Imdur] 30 mg PO BID Spironolactone [Aldactone] 25 mg PO DAILY #30 tab Furosemide [Lasix] 40 mg PO DAILY #30 tab traZODone HCL 150 mg PO HS #30 Phenol/Glycerin [Chloraseptic Max 1.5-33% [place]] 1 spray MUCOUS MEM QID #118 ml DULoxetine HCL [Cymbalta] 60 mg PO DAILY DULoxetine HCL [Cymbalta] 30 mg PO DAILY Insulin Aspart [NovoLOG Flexpen] 12 units SQ TID-W/MEALS Discharge Medication List Ferrous Sulfate [Iron (65 MG Elemental)] 325 mg PO DAILY 03/30/19 [History] ARIPiprazole [Abilify] 20 mg PO HS #14 tab 04/11/19 [Rx] Citalopram Hydrobromide [CeleXA] 10 mg PO DAILY #14 tab 04/11/19 [Rx] Gabapentin 600 mg PO TID #42 tablet 04/11/19 [Rx] Losartan [Cozaar] 25 mg PO DAILY #14 tab 04/11/19 [Rx] Melatonin 5 mg PO HS #28 tablet 04/11/19 [Rx] Nicotine 21Mg/24Hr Patch [Habitrol] 1 patch TRANSDERM DAILY #28 patch 04/11/19 [Rx] OLANZapine [ZyPREXA] 5 mg PO TID PRN #42 tab 04/11/19 [Rx] traZODone HCL 100 mg PO HS #14 tab 04/11/19 [Rx] ARIPiprazole [Abilify] 15 mg PO DAILY 09/22/23 [History] Aspirin 81 mg PO DAILY #30 tab 09/27/23 [Rx] Clopidogrel [Plavix] 75 mg PO DAILY #30 tab 09/27/23 [Rx] Nitroglycerin Sl Tabs [Nitrostat] 0.4 mg SUBLINGUAL Q5M PRN 12/01/23 [History] Atorvastatin [Lipitor] 40 mg PO DAILY 08/05/24 [History] Isosorbide Mononitrate ER [Imdur] 30 mg PO BID 11/28/24 [History] Furosemide [Lasix] 40 mg PO DAILY #30 tab 12/01/24 [Rx] Losartan [Cozaar] 25 mg PO DAILY #30 tab 12/01/24 [Rx] Metoprolol Tartrate [Lopressor] 25 mg PO BID #60 tab 12/01/24 [Rx] Phenol/Glycerin [Chloraseptic Max 1.5-33% [place]] 1 spray MUCOUS MEM QID #118 ml 12/01/24 [Rx] Spironolactone [Aldactone] 25 mg PO DAILY #30 tab 12/01/24 [Rx] traZODone HCL 150 mg PO HS #30 12/01/24 [Rx] DULoxetine HCL [Cymbalta] 30 mg PO DAILY 12/25/24 [History] DULoxetine HCL [Cymbalta] 60 mg PO DAILY 12/25/24 [History] Insulin Aspart [NovoLOG Flexpen] 12 units SQ TID-W/MEALS 12/25/24 [History] Insulin Glargine (Lantus) [Lantus Vial] 15 unit SQ DAILY@0700 12/25/24 [History] lamoTRIgine 100 mg PO DAILY 12/25/24 [History] Follow up Appointment(s)/Referral(s): Ariadna Lambert MD [Primary Care Provider] - 3 Days Discharge Disposition: HOME SELF-CARE
[2024-12-26 14:57] VITALS: BMI 39.6
[2024-12-26] MEDS ORDERED: traZODone HCL 50 MG TAB PO SCH (21:00)
== END 2024-12-26 16:04 | disposition home or self-care (01) ==
LOC: EC 19:21 → 6NMEDSUR 21:38
PROVIDERS: ADMIT Hospitalist; ATTEND Hospitalist
DX: R07.89 Other chest pain (principal); I11.0 Hypertensive heart disease with heart failure; I50.22 Chronic systolic (congestive) heart failure; I25.10 Atherosclerotic heart disease of native coronary artery without angina pectoris; I42.8 Other cardiomyopathies; E78.5 Hyperlipidemia, unspecified; E11.9 Type 2 diabetes mellitus without complications; F31.9 Bipolar disorder, unspecified; I25.2 Old myocardial infarction; E66.9 Obesity, unspecified; Z68.39 Body mass index [BMI] 39.0-39.9, adult; Z87.891 Personal history of nicotine dependence; Z79.02 Long term (current) use of antithrombotics/antiplatelets; Z79.4 Long term (current) use of insulin; Z79.82 Long term (current) use of aspirin; Z79.899 Other long term (current) drug therapy
CPT/HCPCS: 96376; 96374; 96375; 99285; 36415; 93005; 85379; 83880; 80053; 83735; 84484 ×2; 85025; 85610; 85730; 71046; G0378 ×2; J2405 ×2; J1171 ×2

== ENCOUNTER → 2025-01-02 | Outpatient (CLI) | payer MEDICARE ==
[2025-01-02 14:55] LABS: HCT 46.3 % (37.2-46.3); HGB 14.7 g/dL (12.0-15.0); MCH 27.5 pg (27.0-32.0); MCHC 31.7 g/dL (32.0-37.0); MCV 86.7 FL (80.0-97.0); Mean Platelet Volume 11.5 FL (9.5-12.2); NRBC Per 100 WBC 0 X 10*3/uL (0.00-0.01); Platelet Count 288 X 10*3/uL (140-440); RBC 5.34 X 10*6/uL (4.10-5.20); RDW 13.1 % (11.5-14.5); WBC 10.68 X 10*3/uL (4.50-10.00)
[2025-01-02 15:21] LABS: ALT 15 U/L (8-44); AST 21 U/L (13-35); Albumin 4.5 g/dL (3.8-4.9); Albumin/Globulin Ratio 1.88 Ratio (1.60-3.17); Alkaline Phosphatase 108 U/L (41-126); BUN/Creat Ratio 29.88 Ratio (12.00-20.00); Blood Urea Nitrogen 23.9 mg/dL (9.0-27.0); Calcium 9.9 mg/dL (8.7-10.3); Carbon Dioxide 23.8 mmol/L (21.6-31.8); Chloride 101 mmol/L (96-109); Globulin 2.4 g/dL (1.6-3.3); Glucose 245 mg/dL (70-110); LDL Cholesterol,Calculated 70.1 mg/dL (0.0-131.0); Potassium 4.9 mmol/L (3.5-5.5); Sodium 138 mmol/L (135-145); Total Bilirubin <0.2 mg/dL (0.3-1.2); Total Protein 6.9 g/dL (6.2-8.2)
[2025-01-02 16:03] LABS: NT-Pro-B-Type Natriuretic Pept 201 pg/mL (0-125)
== END | disposition home or self-care (01) ==
LOC: LABWHC1 07:56
PROVIDERS: ATTEND Student in an Organized Health Care Education/Training Program
DX: I50.9 Heart failure, unspecified (principal); E11.22 Type 2 diabetes mellitus with diabetic chronic kidney disease; N18.9 Chronic kidney disease, unspecified; D64.9 Anemia, unspecified
CPT/HCPCS: 36415; 80053; 80061; 83036; 83880; 85027

== ENCOUNTER → 2025-01-10 | Outpatient (CLI) | payer MEDICARE ==
--- NOTE | 2025-01-16 23:37 | P.PCN ---
Date of Procedure: 01/10/25 Operative Findings: Home sleep study testing History A 49-year-old female patient referred to sleep center due to concern of obstructive sleep apnea. The patient is known to have congestive heart failure with an ejection fraction of 35 to 40%, coronary artery disease with previous non-ST segment elevation myocardial infarction, chronic A-fib, insulin-dependent diabetes mellitus, hypertension hyperlipidemia, mild intermittent bronchial asthma and bipolar disorder. The patient also is morbidly obese and carries a body mass index of 39.9. She has history of snoring, excessive daytime sleepiness and frequent napping and chronic hypersomnia and sleepiness Pertinent physical findings Weight is 238 pounds with a body mass index of 38.4 Technical description The [employer] system was used to complete his home sleep study. This is a type III ultrasound evaluation. The total recording duration was 8 hours and 11 minutes. The study started at 9 PM and ended at 5:11 AM. There was a total of 7 hours and 31 minutes of flow monitoring at 7 hours and 59 minutes of oxygen saturation monitoring Results Respiratory analysis showed a total of 27 obstructive apneas and 141 obstructive hypopneas. The resulting AHI was 19.5 consistent with moderately severe disease Oxygenation analysis Patient had a total of 141 episodes of oxygen desaturation with a drop with a pulse ox of 4%. Baseline pulse ox while awake was 95%. Average pulse ox during sleep was 92%. Minimum pulse ox during sleep was 83% and the patient spent 9 minutes of sleep time below pulse ox of 89%. Cardiac summary Average heart rate was 69 with a minimum heart rate of 58 and the maximum heart rate of 87 Assessment Obstructive sleep apnea, moderate in severity with an AHI of 19.5 Mild nocturnal oxygen desaturations CHF with an EF of around 35 to 40% Coronary artery disease with previous non-ST segment elevation myocardial infarction Chronic atrial fibrillation Insulin-dependent diabetes mellitus Hypertension Hyperlipidemia Bipolar disorder Obesity with a BMI of 39.9 Plan This patient should benefit from CPAP therapy. The patient will be asked to come into the sleep center to undergo her a CPAP titration. Encourage weight loss. Optimize cardiac condition and cardiovascular risk factors. Will follow.
== END ==
LOC: 3 N SLEEP 10:55
PROVIDERS: ATTEND Internal Medicine Critical Care Medicine
DX: G47.33 Obstructive sleep apnea (adult) (pediatric) (principal); I11.0 Hypertensive heart disease with heart failure; I50.9 Heart failure, unspecified; I25.2 Old myocardial infarction; I48.20 Chronic atrial fibrillation, unspecified; E11.9 Type 2 diabetes mellitus without complications; E78.5 Hyperlipidemia, unspecified; F31.9 Bipolar disorder, unspecified; E66.9 Obesity, unspecified; Z99.89 Dependence on other enabling machines and devices; Z68.39 Body mass index [BMI] 39.0-39.9, adult; Z79.4 Long term (current) use of insulin; Z88.8 Allergy status to other drugs, medicaments and biological substances

== ENCOUNTER 2025-02-18 18:26 | Inpatient (IN) | payer MEDICARE ==
--- NOTE | 2025-02-18 19:38 | ED ---
Chest Pain HPI - General Chief Complaint: Chest Pain Stated Complaint: chest pain Time Seen by Provider: 02/18/25 19:28 Source: patient, RN notes reviewed, old records reviewed Mode of arrival: ambulatory Limitations: no limitations - History of Present Illness Initial Comments: This is a 49-year-old female to the ER for evaluation abdominal pain abdominal pain with nausea and vomiting. Also complaining of chest pain significant recent cardiac history wearing LifeVest. Patient presents with persistent chest pain here in the ER without recent fever cough or congestion she states she did have some episodes of diaphoresis although that is resolved. No recent travel history or sick contacts no change in medications. No current shortness of breath MD Complaint: chest pain, other (Abdominal pain) -: hour(s) Onset: during rest Pain Location: substernal, epigastric Severity: moderate Severity scale (1-10): 7 Quality: tightness, sharp Consistency: constant Improves With: nothing Worsens With: nothing Anginal Symptoms: nausea, vomiting Other Symptoms: palpitations Treatments Prior to Arrival: none - Related Data Home Medications Medication Instructions Recorded Confirmed ARIPiprazole [Abilify] 15 mg PO DAILY 09/22/23 02/19/25 Nitroglycerin Sl Tabs [Nitrostat] 0.4 mg SUBLINGUAL Q5M PRN 12/01/23 02/19/25 Atorvastatin [Lipitor] 40 mg PO DAILY 08/05/24 02/19/25 DULoxetine HCL [Cymbalta] 30 mg PO DAILY 12/25/24 02/19/25 DULoxetine HCL [Cymbalta] 60 mg PO DAILY 12/25/24 02/19/25 Insulin Aspart [NovoLOG Flexpen] 12 units SQ TID-W/MEALS 12/25/24 02/19/25 Insulin Glargine (Lantus) [Lantus 15 unit SQ DAILY@0700 12/25/24 02/19/25 Vial] lamoTRIgine 100 mg PO DAILY 12/25/24 02/19/25 Empagliflozin [Jardiance] 25 mg PO DAILY 02/19/25 02/19/25 LORazepam [Ativan] 0.5 mg PO DAILY PRN 02/19/25 02/19/25 Metoprolol Tartrate [Lopressor] 50 mg PO BID 02/19/25 02/19/25 Ranolazine [Ranexa] 500 mg PO BID 02/19/25 02/19/25 Sacubitril/Valsartan [Entresto 24 1 tab PO BID 02/19/25 02/19/25 mg-26 mg Tablet] Semaglutide [Ozempic] 1 mg SQ TH 02/19/25 02/19/25 Previous Rx's Medication Instructions Recorded Aspirin 81 mg PO DAILY #30 tab 09/27/23 Clopidogrel [Plavix] 75 mg PO DAILY #30 tab 09/27/23 Spironolactone [Aldactone] 25 mg PO DAILY #30 tab 12/01/24 traZODone HCL 150 mg PO HS #30 12/01/24 Furosemide [Lasix] 20 mg PO DAILY tab 02/22/25 Isosorbide Mononitrate ER [Imdur] 60 mg PO DAILY tab 02/22/25 Pantoprazole [Protonix] 40 mg PO DAILY #30 tab 02/22/25 Allergies Allergy/AdvReac Type Severity Reaction Status Date / Time ketorolac [From Toradol] Allergy Unknown Verified 02/19/25 08:19 metformin AdvReac Diarrhea Verified 02/19/25 08:19 Review of Systems ROS Statement: Those systems with pertinent positive or pertinent negative responses have been documented in the HPI. ROS Other: All systems not noted in ROS Statement are negative. EKG Findings - EKG Comments: EKG Findings:: EKG is sinus 73 MI 172 QRS 118 QTc 393 - EKG Results: EKG: interpreted by SYLVESTER Past Medical History Past Medical History: Diabetes Mellitus, Hyperlipidemia, Hypertension, Myocardial Infarction (ME) Additional Past Medical History / Comment(s): Pt states "None" when asked if she has medical history Last Myocardial Infarction Date:: 08/2023 History of Any Multi-Drug Resistant Organisms: None Reported Past Surgical History: Bariatric Surgery, Cholecystectomy, No Surgical Hx Reported Additional Past Surgical History / Comment(s): Pt states "No" Past Anesthesia/Blood Transfusion Reactions: No Reported Reaction Past Psychological History: Bipolar Smoking Status: Former smoker Past Alcohol Use History: None Reported Past Drug Use History: Marijuana - Past Family History Mother Family Medical History: Deep Vein Thrombosis (DVT) Father History Unknown: Yes General Exam Limitations: no limitations General appearance: alert, in no apparent distress Head exam: Present: atraumatic, normocephalic, normal inspection Eye exam: Present: normal appearance, PERRL, EOMI. Absent: scleral icterus, conjunctival injection, periorbital swelling ENT exam: Present: normal exam, mucous membranes moist Neck exam: Present: normal inspection. Absent: tenderness, meningismus, lymphadenopathy Respiratory exam: Present: normal lung sounds bilaterally. Absent: respiratory distress, wheezes, rales, rhonchi, stridor Cardiovascular Exam: Present: regular rate, normal rhythm, normal heart sounds. Absent: systolic murmur, diastolic murmur, rubs, gallop, clicks GI/Abdominal exam: Present: soft, tenderness, normal bowel sounds. Absent: distended, guarding, rebound, rigid Extremities exam: Present: normal inspection, full ROM, normal capillary refill. Absent: tenderness, pedal edema, joint swelling, calf tenderness Back exam: Present: normal inspection Neurological exam: Present: alert, oriented X3, CN II-XII intact Psychiatric exam: Present: normal affect, normal mood Skin exam: Present: warm, dry, intact, normal color. Absent: rash Course Vital Signs 02/18/25 02/18/25 02/18/25 18:30 19:48 21:46 Temperature 98.0 F Pulse Rate 74 73 68 Respiratory 17 18 18 Rate Blood Pressure 113/75 118/72 108/60 O2 Sat by Pulse 97 100 100 Oximetry 02/18/25 02/19/25 02/19/25 23:00 02:00 04:00 Temperature Pulse Rate 72 75 70 Respiratory 18 18 18 Rate Blood Pressure 105/60 110/60 105/77 O2 Sat by Pulse 98 98 99 Oximetry 02/19/25 02/19/25 02/19/25 06:00 07:46 10:37 Temperature 98.8 F Pulse Rate 73 68 74 Respiratory 18 20 20 Rate Blood Pressure 104/63 104/63 131/74 O2 Sat by Pulse 97 98 96 Oximetry 02/19/25 02/19/25 02/19/25 12:00 15:57 17:00 Temperature Pulse Rate 72 75 60 Respiratory 20 20 20 Rate Blood Pressure 134/74 90/59 O2 Sat by Pulse 97 98 95 Oximetry 02/19/25 02/19/25 18:00 20:53 Temperature Pulse Rate 73 70 Respiratory 20 18 Rate Blood Pressure 107/66 119/70 O2 Sat by Pulse 97 98 Oximetry - Reevaluation(s) Reevaluation #1: 02/18/25 21:33 Medical records reviewed Records include significant recent inpatient hospitalization requiring intubation for heart failure Reevaluation #2: 02/18/25 21:33 Patient has improved chest pain improved abdominal pain Reevaluation #3: 02/18/25 21:34 Patient informed of results questions answered Reevaluation #4: Was pt. sent in by a medical professional or institution (, JEF, ROUTE SALES REPRESENTATIVE, urgent care, hospital, or fci...) When possible be specific @ -no Did you speak to anyone other than the patient for history (EMS, parent, family, police, friend...)? What history was obtained from this source @ -no Did you review nursing and triage notes (agree or disagree)? Why? @ -agree Are old charts reviewed (outside hosp., previous admission, EMS record, old EKG, old radiological studies, urgent care reports/EKG's, fci records)? Report findings @ -yes Differential Diagnosis (chest pain, altered mental status, abdominal pain women, abdominal pain men, vaginal bleeding, weakness, fever, dyspnea, syncope, headache, dizziness, GI bleed, back pain, seizure, CVA, palpatations, mental health, musculoskeletal)? @ -prior EKG interpreted by me (3pts min.). @ -yes X-rays interpreted by me (1pt min.). @ -yes negative for acute disease CT interpreted by me (1pt min.). @ -yes negative for acute disease U/S interpreted by me (1pt. min.). @ -no What testing was considered but not performed or refused? (CT, X-rays, U/S, labs)? Why? @ -none What meds were considered but not given or refused? Why? @ -none Did you discuss the management of the patient with other professionals (professionals i.e. , JEF, ROUTE SALES REPRESENTATIVE, lab, RT, psych nurse, case management social worker, controller repairer and tester, teacher, business services officer, case coordinator)? Give summary @ -no Was smoking cessation discussed for >3mins.? @ -no Was critical care preformed (if so, how long)? @ -no Were there social determinants of health that impacted care today? How? (Homelessness, low income, unemployed, alcoholism, drug addiction, transportation, low edu. Level, literacy, decrease access to med. care, nursing home, rehab)? @ -none Was there de-escalation of care discussed even if they declined (Discuss DNR or withdrawal of care, Hospice)? DNR status @ -no What co-morbidities impacted this encounter? (DM, HTN, Smoking, COPD, CAD, Cancer, CVA, ARF, Chemo, Hep., AIDS, mental health diagnosis, sleep apnea, morbid obesity)? @ -none Was patient admitted / discharged? Hospital course, mention meds given and route, prescriptions, significant lab abnormalities, going to OR and other pertinent info. @ - 49 female to the ER for evaluation of chest pain when pressing on patient's abdomen she has severe epigastric abdominal pain with positive pancreatitis on labs we will admit for n.p.o. status IV hydration pain control and continued monitoring of chest pain with significant recent cardiac history Admitted Undiagnosed new problem with uncertain prognosis? @ -no Drug Therapy requiring intensive monitoring for toxicity (Heparin, Nitro, Insulin, Cardizem)? @ -no Were any procedures done? @ -no Diagnosis/symptom? @ -Ac CP ro ACS, Ac Pancreatitis Acute, or Chronic, or Acute on Chronic? @ -Acute Uncomplicated (without systemic symptoms) or Complicated (systemic symptoms)? @ -Complicated Side effects of treatment? @ -no Exacerbation, Progression, or Severe Exacerbation? @ -exacerbation Poses a threat to life or bodily function? How? (Chest pain, USA, ME, pneumonia, PE, COPD, DKA, ARF, appy, cholecystitis, CVA, Diverticulitis, Homicidal, Suicidal, threat to staff... and all critical care pts) @ -yes w chest pain Reevaluation #5: Differential Chest Pain: Stable Angina, Unstable Angina, STEMI, NSTEMI Aortic Dissection, Pneumothorax, Musculoskeletal, Esophageal Spasm GERD, Cholecystitis, Pancreatitis, Zoster, this is not meant to be an all-inclusive list. Differential Abdominal Pain Women: Appendicitis, Cholecystitis, diverticulosis, ischemic bowel, pancreatitis, hepatitis, UTI, gastroenteritis, AAA, incarcerated hernia, bowel obstruction, constipation, inflammatory bowel, hepatitis, peptic ulcer disease, splenic infarction, perforated viscus, vulvitis, ovarian torsion, PID, kidney stone, placenta abruption, this is not meant to be an all-inclusive list - Consultations Consultation #1: Spoke with [facility] who agrees to admit this patient Chest Pain MDM - MDM 49 female to the ER for evaluation of chest pain when pressing on patient's abdomen she has severe epigastric abdominal pain with positive pancreatitis on labs we will admit for n.p.o. status IV hydration pain control and continued monitoring of chest pain with significant recent cardiac history Critical Care Time Critical Care Time: Yes Total Critical Care Time: 31 Disposition Clinical Impression: Chest pain, Acute pancreatitis Disposition: ADMITTED IP TO THIS HOSP Condition: Stable Is patient prescribed a controlled substance at d/c from ED?: No Time of Disposition: 21:30
--- NOTE | 2025-02-18 19:59 | XR ---
EXAMINATION TYPE: XR chest 1V portable DATE OF EXAM: 02/18/2025 7:48 PM COMPARISON: Chest radiographs from 12/25/2024 CLINICAL INDICATION: Female, 49 years old with history of chest pain; [facility] TECHNIQUE: XR chest 1V portable Frontal view of the chest. FINDINGS: Lungs/Pleura: There is no evidence of pleural effusion, focal consolidation, or pneumothorax. Pulmonary vascularity: Unremarkable. Heart/mediastinum: Cardiomediastinal silhouette is unremarkable. Electronic device in stable position . Musculoskeletal: No acute osseous pathology. Other findings: None IMPRESSION: No acute cardiopulmonary disease/process. [facility], , 02/18/2025 7:57 PM
[2025-02-18] MEDS: ONDANSETRON 4 MG/2 ML VIAL IVP STA (20:14)
[2025-02-18 20:18] LABS: Basophils # (A) 0.05 10*3/uL (0.00-0.10); Basophils % (A) 0.6 %; Eosinophils # (A) 0.21 10*3/uL (0.04-0.35); Eosinophils % (A) 2.3 %; HCT 45.5 % (37.2-46.3); HGB 14.7 g/dL (12.0-15.0); Lymphocytes # (A) 3.02 10*3/uL (0.90-5.00); Lymphocytes % (A) 33.2 %; MCH 28.6 pg (27.0-32.0); MCHC 32.3 g/dL (32.0-37.0); MCV 88.5 fL (80.0-97.0); Mean Platelet Volume 10.1 fL (9.5-12.2); Monocytes # (A) 1.16 10*3/uL (0.20-1.00); Monocytes % (A) 12.8 %; Neutrophils # (A) 4.62 10*3/uL (1.80-7.70); Neutrophils % (A) 50.8 %; Platelet Count 267 10*3/uL (140-440); RBC 5.14 10*6/uL (4.10-5.20); RDW 13.5 % (11.5-14.5); WBC 9.09 10*3/uL (4.50-10.00)
[2025-02-18 20:29] LABS: INR 0.9 (<1.2); Partial Thromboplastin Time 24.6 sec (22.0-30.0)
[2025-02-18 20:31] LABS: ALT 17 U/L (4-34); AST 24 U/L (14-36); African American GFR (CKD) >90 (>60 ml/min/1.73 sqM); Albumin 4.2 g/dL (3.5-5.0); Alkaline Phosphatase 61 U/L (38-126); Anion Gap 10 mmol/L; Blood Urea Nitrogen 15 mg/dL (7-17); Calcium 9.5 mg/dL (8.4-10.2); Carbon Dioxide 26 mmol/L (22-30); Chloride 101 mmol/L (98-107); Glucose 99 mg/dL (74-99); Lipase 1072 U/L (23-300); Magnesium 2.4 mg/dL (1.6-2.3); Non-African American GFR(CKD) 88 (>60 ml/min/1.73 sqM); Sodium 137 mmol/L (137-145); Total Bilirubin 0.4 mg/dL (0.2-1.3); Total Protein 6.6 g/dL (6.3-8.2)
[2025-02-18 20:39] LABS: NT-Pro-B-Type Natriuretic Pept 73 pg/mL
[2025-02-18] MEDS: ACETAMINOPHEN TAB 500 MG TAB PO STA (20:47)
[2025-02-18] MEDS: SODIUM CHLORIDE 0.9% 1,000 ML IV SCH ×2 (20:48→22:11)
[2025-02-18] MEDS ORDERED: NALOXONE 0.4 MG/ML 1 ML VIAL IV PRN (21:30)
--- NOTE | 2025-02-18 21:35 | CT ---
EXAMINATION TYPE: CT angio chest DATE OF EXAM: 02/18/2025 9:18 PM COMPARISON: 11/28/2024 CLINICAL INDICATION: Female, 49 years old with history of pain; pt is coming in for chest pain that h as been going on intermittently today, pt is also having nausea/vomiting, pt denies shortness of fernando th. Pt currently wearing lifevest. hx of bariatric sx, jared. TECHNIQUE/CONTRAST: CTA scan of the thorax is performed with IV Contrast, patient injected with 100 ml combined mL of Iso viridiana 370, MIP images are created and reviewed these are created on a separate workstation.. CT DLP: 2366.6 mGycm, Automated exposure control for dose reduction was used. FINDINGS: Lungs/Pleura: No evidence of focal consolidation, pleural effusion or pneumothorax. Anatomic variant azygous fissure in the right lung apex. Right lower lobe superior segment 5 mm nodule stable from . No follow-up recommended for this nodule. Airway: Large airways are patent. Heart: Size within normal limits. No significant coronary artery calcifications. Vasculature: Both timing makes evaluation for pulmonary embolus nondiagnostic. No evidence for dissec tion or occlusion. Mediastinum: No gross evidence of adenopathy. Musculoskeletal: Moderate disc degeneration changes are present throughout the thoracolumbar spine se condary to osteophyte formation and facet joint arthropathy. Soft Tissues/lymph nodes: Unremarkable. Lower neck: No significant findings. Upper Abdomen: The gallbladder surgically absent. IMPRESSION: 1. Nondiagnostic CTA angiogram for pulmonary embolus due to bolus timing. No evidence for dissection or occlusion. 2. No acute thoracic process. 3. Stable right lower lobe superior segment pulmonary nodule. No follow-up recommended. Follow up recommendations for incidental pulmonary nodules, if there are any, are per [employer] or [employer]. [email or web address].org/articles/lkuatwdtza-bgumjfr-fqptlbind-[email or web address]?lang=us [facility], , 02/18/2025 9:32 PM
--- NOTE | 2025-02-18 21:45 | CT ---
EXAMINATION TYPE: CT abdomen pelvis w con DATE OF EXAM: 02/18/2025 9:20 PM COMPARISON: 09/26/2023 CLINICAL INDICATION: Female, 49 years old with history of pain; pt is coming in for chest pain that h as been going on intermittently today, pt is also having nausea/vomiting, pt denies shortness of fernando th. Pt currently wearing lifevest. hx of bariatric sx, jared. TECHNIQUE: Axial CT abdomen pelvis w con;Sagittal and coronal reformats were created on a separate w orkstation. Contrast used:100 ml combined mL of Isovue 370 with IV Contrast, (none if empty) Oral contrast used: without Oral Contrast (none if empty) CT DLP: 2366.6 mGycm, Automated exposure control for dose reduction was used. FINDINGS: LOWER CHEST: Unremarkable ABDOMEN LIVER: Unremarkable GALLBLADDER AND BILE DUCTS: The gallbladder is surgically absent. PANCREAS: Unremarkable. SPLEEN: Unremarkable. ADRENAL GLANDS: Unremarkable. KIDNEYS AND URETERS: No evidence of hydronephrosis or obstructing renal calculus. The ureters are unr emarkable. Simple appearing renal cysts bilaterally measuring up to 12 mm on the right and millime ters on the left. PELVIS BLADDER: No evidence for wall thickening or mass given limitations of exam. REPRODUCTIVE: Unremarkable. ABDOMEN & PELVIS STOMACH AND BOWEL: No evidence of bowel obstruction. Postsurgical changes to the gastroesophageal dom ction with surgical clips present. The appendix is normal. PERITONEUM/RETROPERITONEUM: No evidence of pneumoperitoneum or free fluid. VASCULATURE: No evidence of aortic aneurysm. MUSCULOSKELETAL: No acute osseous abnormalities. Mild disc degeneration changes are present throughou t the thoracolumbar spine. LYMPH NODES: No gross evidence for lymphadenopathy. SOFT TISSUE/ABDOMINAL WALL: Unremarkable IMPRESSION: 1. No evidence for acute abdominal process. No obstructive uropathy or renal calculus. The gallbladd er surgically absent. The appendix is normal. 2. Simple appearing renal cysts. No follow-up recommended. [facility], , 02/18/2025 9:43 PM
[2025-02-18] MEDS: HYDROmorphone 0.5 MG/0.5 ML SYRINGE IVP STA (21:48)
[2025-02-18] MEDS: PANTOPRAZOLE 40 MG/10 ML VIAL IV SCH (22:11)
[2025-02-19] MEDS: HYDROmorphone 0.5 MG/0.5 ML SYRINGE IVP PRN (02:17)
[2025-02-19] MEDS: ONDANSETRON 4 MG/2 ML VIAL IVP PRN (07:42)
[2025-02-19 08:24] LABS: Basophils # (A) 0.03 10*3/uL (0.00-0.10); Basophils % (A) 0.5 %; Eosinophils # (A) 0.13 10*3/uL (0.04-0.35); Eosinophils % (A) 2.3 %; HCT 44.8 % (37.2-46.3); HGB 14.2 g/dL (12.0-15.0); Lymphocytes % (A) 33.9 %; MCH 28.7 pg (27.0-32.0); MCHC 31.7 g/dL (32.0-37.0); MCV 90.5 fL (80.0-97.0); Mean Platelet Volume 10.2 fL (9.5-12.2); Monocytes # (A) 0.62 10*3/uL (0.20-1.00); Monocytes % (A) 11.1 %; Neutrophils # (A) 2.92 10*3/uL (1.80-7.70); Platelet Count 217 10*3/uL (140-440); RBC 4.95 10*6/uL (4.10-5.20); WBC 5.61 10*3/uL (4.50-10.00)
[2025-02-19] MEDS ORDERED: DEXTROSE 50% SYRINGE 50 ML IVP PRN ×2 (08:47)
[2025-02-19 08:49] LABS: ALT 16 U/L (4-34); African American GFR (CKD) >90 (>60 ml/min/1.73 sqM); Albumin 3.8 g/dL (3.5-5.0); Anion Gap 7 mmol/L; Blood Urea Nitrogen 13 mg/dL (7-17); Carbon Dioxide 24 mmol/L (22-30); Chloride 106 mmol/L (98-107); Glucose 82 mg/dL (74-99); Lipase 174 U/L (23-300); Non-African American GFR(CKD) >90 (>60 ml/min/1.73 sqM); Phosphorus 4.5 mg/dL (2.5-4.5); Sodium 137 mmol/L (137-145); Total Bilirubin 0.8 mg/dL (0.2-1.3); Total Protein 6.2 g/dL (6.3-8.2)
[2025-02-19] MEDS ORDERED: NITROGLYCERIN SL TABS 0.4 MG TAB SUBLINGUAL PRN (08:50)
[2025-02-19 09:00] LABS: AST 33 U/L (14-36); Alkaline Phosphatase 55 U/L (38-126); Magnesium 2.4 mg/dL (1.6-2.3); Potassium 4.4 mmol/L (3.5-5.1)
--- NOTE | 2025-02-19 09:49 | P.CRDCN ---
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 Patient follows in the office with Dr. Tamez. We have been asked to see the patient in consultation for chest pain. Patient examined at the bedside in the emergency room. Patient states any initially was having abdominal discomfort which then turned into chest discomfort yesterday. She also reports having nausea and vomiting. Denies diarrhea. She denies any radiation of the pain. At the time of examination this morning, patient denies chest pain or pressure. The patient is currently wearing a LifeVest. DIAGNOSTICS: - EKG reveals sinus mechanism with T wave inversions in high lateral leads. - Chest CTA: Nondiagnostic angiogram for pulmonary embolism due to bolus timing. No evidence of dissection or occlusive. No acute thoracic process. Stable right lower lobe superior segment pulmonary nodule. - CT abdomen pelvis: No evidence for acute abdominal process. No obstructive uropathy or renal calculus. Gallbladder surgically absent. Appendix normal. Simple appearing renal cyst. - Chest xray negative for acute process - Laboratory data: WBC 5.6. Hemoglobin 14.2. Platelet count 217. D-dimer 0.17. Sodium 137. Potassium 4.4. BUN 13. Creatinine 0.71. Troponin negative x 3. proBNP 73. Lipase 1072. Repeat 174. - Current home cardiac medications include metoprolol tartrate 50 mg twice a day, Entresto 24-26 mg twice a day, Jardiance 25 mg daily, Ranexa 500 mg twice a day, Aldactone 25 mg daily, Imdur 30 mg twice a day, Lasix 40 mg daily, Plavix 75 mg daily, Lipitor 40 mg daily, aspirin 81 mg daily. - Echocardiogram performed in November 2024 revealed ejection fraction 15 to 20%, trace MR, trace TR - Cardiac catheterization history: August 2023 revealing ulcerated plaque in proximal left circumflex 10 to 20%, normal LVEDP, dilated cardiomyopathy with EF 35% REVIEW OF SYSTEMS: At the time of my exam: CONSTITUTIONAL: Denies fever or chills. HEENT: Denies blurred vision, vision changes, or eye pain. Denies hemoptysis CARDIOVASCULAR: Denies chest pain. Denies orthopnea. Denies PND. Denies palpitations RESPIRATORY: Denies shortness of breath. GASTROINTESTINAL: Denies abdominal pain. Denies nausea or vomiting. HEMATOLOGIC: Denies bleeding disorders. GENITOURINARY: Denies any blood in urine. SKIN: Denies pruitis. Denies rash. PHYSICAL EXAM: VITAL SIGNS: Reviewed. GENERAL: Well-developed in no acute distress. HEENT: Head is normocephalic. Pupils are equal, round. Sclerae anicteric. Mucous membranes of the mouth are moist. Neck supple. No JVD or thyromegaly LUNGS: Respirations even and unlabored. Lungs essentially clear to auscultation bilaterally. HEART: Regular rate and rhythm. S1 and S2 heard. ABDOMEN: Soft. Nondistended. Nontender. EXTREMITIES: Normal range of motion. No clubbing or cyanosis. Peripheral pulses intact. No lower extremity edema NEUROLOGIC: Awake and alert. Oriented x 3. ASSESSMENT: Abdominal pain Chest pain, troponin negative x 3 Elevated lipase Mild nonobstructive CAD with vasospastic angina Nonischemic cardiomyopathy, 15 to 20% Diabetes Obesity: BMI 39.1 Former nicotine dependence PLAN: No need to repeat echocardiogram as this was performed in November 2024 Resume home cardiac medications Continue LifeVest Will consider repeat cardiac catheterization if patient has further episodes of chest discomfort. However no indication for cardiac catheterization at this time Further recommendations pending patient course Nurse practitioner note has been reviewed by physician. Signing provider agrees with the documented findings, assessment, and plan of care documented by [employer] MEMBER as a scribe. Past Medical History Past Medical History: Diabetes Mellitus, Hyperlipidemia, Hypertension, Myocardial Infarction ([place]) Additional Past Medical History / Comment(s): Pt states "None" when asked if she has medical history Last Myocardial Infarction Date:: 08/2023 History of Any Multi-Drug Resistant Organisms: None Reported Past Surgical History: Bariatric Surgery, Cholecystectomy, No Surgical Hx Reported Additional Past Surgical History / Comment(s): Pt states "No" Past Anesthesia/Blood Transfusion Reactions: No Reported Reaction Past Psychological History: Bipolar Smoking Status: Former smoker Past Alcohol Use History: None Reported Past Drug Use History: Marijuana - Past Family History Mother Family Medical History: Deep Vein Thrombosis (DVT) Father History Unknown: Yes Medications and Allergies Home Medications Medication Instructions Recorded Confirmed Type ARIPiprazole [Abilify] 15 mg PO DAILY 09/22/23 02/19/25 History Aspirin 81 mg PO DAILY #30 tab 09/27/23 02/19/25 Rx Clopidogrel [Plavix] 75 mg PO DAILY #30 tab 09/27/23 02/19/25 Rx Nitroglycerin Sl Tabs [Nitrostat] 0.4 mg SUBLINGUAL Q5M PRN 12/01/23 02/19/25 H istory Atorvastatin [Lipitor] 40 mg PO DAILY 08/05/24 02/19/25 History Isosorbide Mononitrate ER [Imdur] 30 mg PO BID 11/28/24 02/19/25 History Furosemide [Lasix] 40 mg PO DAILY #30 tab 12/01/24 02/19/25 Rx Spironolactone [Aldactone] 25 mg PO DAILY #30 tab 12/01/24 02/19/25 Rx traZODone HCL 150 mg PO HS #30 12/01/24 02/19/25 Rx DULoxetine HCL [Cymbalta] 30 mg PO DAILY 12/25/24 02/19/25 History DULoxetine HCL [Cymbalta] 60 mg PO DAILY 12/25/24 02/19/25 History Insulin Aspart [NovoLOG Flexpen] 12 units SQ TID-W/MEALS 12/25/24 02/19/25 History Insulin Glargine (Lantus) [Lantus 15 unit SQ DAILY@0700 12/25/24 02/19/25 History Vial] lamoTRIgine 100 mg PO DAILY 12/25/24 02/19/25 History Empagliflozin [Jardiance] 25 mg PO DAILY 02/19/25 02/19/25 History LORazepam [Ativan] 0.5 mg PO DAILY PRN 02/19/25 02/19/25 History Metoprolol Tartrate [Lopressor] 50 mg PO BID 02/19/25 02/19/25 History Ranolazine [Ranexa] 500 mg PO BID 02/19/25 02/19/25 History Sacubitril/Valsartan [Entresto 24 1 tab PO BID 02/19/25 02/19/25 History mg-26 mg Tablet] Semaglutide [Ozempic] 1 mg SQ TH 02/19/25 02/19/25 History Allergies Allergy/AdvReac Type Severity Reaction Status Date / Time ketorolac [From Toradol] Allergy Unknown Verified 02/19/25 08:19 metformin AdvReac Diarrhea Verified 02/19/25 08:19 Physical Exam Vitals: Vital Signs Temp Pulse Resp BP Pulse Ox 02/19/25 07:46 68 20 104/63 98 02/19/25 06:00 98.8 F 73 18 104/63 97 02/19/25 04:00 70 18 105/77 99 02/19/25 02:00 75 18 110/60 98 02/18/25 23:00 72 18 105/60 98 02/18/25 21:46 68 18 108/60 100 02/18/25 19:48 73 18 118/72 100 02/18/25 18:30 98.0 F 74 17 113/75 97 Intake and Output 02/18/25 02/19/25 02/19/25 22:59 06:59 14:59 Other: Weight 109.769 kg Results 02/19/25 07:42 02/19/25 07:42 Cardiac Enzymes 02/18/25 02/18/25 02/19/25 Range/Units 19:49 19:49 00:30 AST 24 (14-36) U/L Troponin I <0.012 <0.012 (0.000-0.034) ng/mL 02/19/25 02/19/25 Range/Units 07:42 07:42 AST 33 (14-36) U/L Troponin I <0.012 (0.000-0.034) ng/mL Coagulation 02/18/25 Range/Units 19:49 PT 10.0 (10.0-12.5) sec APTT 24.6 (22.0-30.0) sec CBC 02/18/25 02/19/25 Range/Units 19:49 07:42 WBC 9.09 5.61 (4.50-10.00) 10*3/uL RBC 5.14 4.95 (4.10-5.20) 10*6/uL Hgb 14.7 14.2 (12.0-15.0) g/dL Hct 45.5 44.8 (37.2-46.3) % Plt Count 267 217 (140-440) 10*3/uL Comprehensive Metabolic Panel 02/18/25 02/19/25 Range/Units 19:49 07:42 Sodium 137 137 (137-145) mmol/L Potassium 4.0 4.4 (3.5-5.1) mmol/L Chloride 101 106 (98-107) mmol/L Carbon Dioxide 26 24 (22-30) mmol/L BUN 15 13 (7-17) mg/dL Creatinine 0.79 0.71 (0.52-1.04) mg/dL Glucose 99 82 (74-99) mg/dL Calcium 9.5 9.0 (8.4-10.2) mg/dL AST 24 33 (14-36) U/L ALT 17 16 (4-34) U/L Alkaline Phosphatase 61 55 (38-126) U/L Total Protein 6.6 6.2 L (6.3-8.2) g/dL Albumin 4.2 3.8 (3.5-5.0) g/dL Current Medications Generic Name Dose Route Start Last Admin Trade Name Freq PRN Reason Stop Dose Admin Aripiprazole 15 mg 02/19/25 09:00 Aripiprazole 15 Mg Tab PO DAILY [facility] Aspirin 81 mg 02/19/25 09:00 Aspirin 81 Mg PO DAILY [facility] Clopidogrel Bisulfate 75 mg 02/19/25 09:00 Clopidogrel 75 Mg Tab PO DAILY [facility] Dextrose/Water 25 ml 02/19/25 08:47 Dextrose 50% Syringe 50 Ml IVP PER PROTOCOL PRN Hypoglycemia Protocol Dextrose/Water 50 ml 02/19/25 08:47 Dextrose 50% Syringe 50 Ml IVP PER PROTOCOL PRN Hypoglycemia Protocol Duloxetine HCl 30 mg 02/19/25 09:00 Duloxetine Hcl 30 Mg Capsule. PO DAILY [facility] Duloxetine HCl 60 mg 02/19/25 09:00 Duloxetine Hcl 60 Mg Capsule. PO DAILY [facility] Enoxaparin Sodium 40 mg 02/20/25 09:00 Enoxaparin 40 Mg/0.4 Ml Syringe SQ DAILY [facility] Furosemide 40 mg 02/19/25 09:00 Furosemide 40 Mg Tab PO DAILY [facility] Hydromorphone HCl 0.5 mg 02/18/25 21:30 02/19/25 06:23 Hydromorphone 0.5 Mg/0.5 Ml Syringe IVP 0.5 mg Q4HR PRN Administration Pain Sodium Chloride 1,000 mls @ 130 mls/hr 02/18/25 20:45 02/19/25 04:00 Saline 0.9% IV 130 mls/hr .Q7H42M [facility] Administration Sodium Chloride 1,000 mls @ 130 mls/hr 02/18/25 21:30 02/19/25 04:20 Saline 0.9% IV Not Given .Q7H42M [facility] Insulin Glargine 6 unit 02/19/25 09:00 Insulin Glargine (Lantus) 100 Unit/Ml Syr SQ DAILY@0700 [facility] Insulin Human Lispro 0 unit 02/19/25 12:30 Insulin Lispro (Humalog) 100 Unit/Ml 10 Ml Vl SQ ACHS [facility] Protocol Isosorbide Mononitrate 60 mg 02/19/25 09:00 Isosorbide Mononitrate Er 60 Mg Tab.Er.24h PO DAILY [facility] Lamotrigine 100 mg 02/19/25 09:00 Lamotrigine 100 Mg Tab PO DAILY [facility] Lorazepam 0.5 mg 02/19/25 08:50 Lorazepam 0.5 Mg Tab PO DAILY PRN Anxiety Metoprolol Tartrate 50 mg 02/19/25 09:00 Metoprolol Tartrate 50 Mg Tab PO BID [facility] Naloxone HCl 0.2 mg 02/18/25 21:30 Naloxone 0.4 Mg/Ml 1 Ml Vial IV Q2M PRN Opioid Reversal Nitroglycerin 0.4 mg 02/19/25 08:50 Nitroglycerin Sl Tabs 0.4 Mg Tab SUBLINGUAL Q5M PRN Chest Pain Ondansetron HCl 4 mg 02/18/25 21:30 02/19/25 07:42 Ondansetron 4 Mg/2 Ml Vial IVP 4 mg Q8HR PRN Administration Nausea And Vomiting Pantoprazole Sodium 40 mg 02/18/25 21:45 02/18/25 22:11 Pantoprazole 40 Mg/10 Ml Vial IV 40 mg DAILY [facility] Administration Ranolazine 500 mg 02/19/25 09:00 Ranolazine 500 Mg Tab.Er.12h PO BID [facility] Sacubitril/Valsartan 1 each 02/19/25 09:00 Sacubitril/Valsartan 24 Mg-26 Mg Tablet PO BID [facility] Spironolactone 25 mg 02/19/25 09:00 Spironolactone 25 Mg Tab PO DAILY [facility] Trazodone HCl 150 mg 02/19/25 21:00 Trazodone Hcl 50 Mg Tab PO HS LANG Intake and Output 02/18/25 02/19/25 02/19/25 22:59 06:59 14:59 Other: Weight 109.769 kg 02/19/25 07:42 02/19/25 07:42
[2025-02-19] MEDS: SACUBITRIL/VALSARTAN 24 MG-26 MG TABLET PO SCH (10:30)
[2025-02-19] MEDS: SPIRONOLACTONE 25 MG TAB PO SCH (10:30)
[2025-02-19] MEDS: METOPROLOL TARTRATE 50 MG TAB PO SCH (10:31)
[2025-02-19] MEDS: ISOSORBIDE MONONITRATE ER 60 MG TAB.ER.24H PO SCH (10:31)
[2025-02-19] MEDS: ASPIRIN 81 MG PO SCH (10:31)
[2025-02-19] MEDS: CLOPIDOGREL 75 MG TAB PO SCH (10:31)
[2025-02-19] MEDS: DULoxetine HCL 30 MG CAPSULE.DR PO SCH (10:32)
[2025-02-19] MEDS: INSULIN GLARGINE (LANTUS) 100 UNIT/ML SYR SQ SCH (10:32)
[2025-02-19] MEDS: DULoxetine HCL 60 MG CAPSULE.DR PO SCH (10:32)
[2025-02-19] MEDS: FUROSEMIDE 40 MG TAB PO SCH (10:32)
[2025-02-19] MEDS: RANOLAZINE 500 MG TAB.ER.12H PO SCH (10:32)
[2025-02-19] MEDS: lamoTRIgine 100 MG TAB PO SCH (10:32)
[2025-02-19] MEDS: ARIPiprazole 15 MG TAB PO SCH (10:46)
[2025-02-19] MEDS: ISOSORBIDE MONONITRATE ER 30 MG TAB.ER.24H PO SCH (10:55)
[2025-02-19] MEDS: INSULIN LISPRO (HumaLOG) 100 UNIT/ML 10 mL VL SQ SCH (12:25)
[2025-02-19 12:26] LABS: Glucose,Whole Blood 128 mg/dL (70-110)
--- NOTE | 2025-02-19 14:19 | P.HPIM ---
History of Present Illness H&P Date: 02/19/25 History of present illness; Patient is a 49-year-old female with hypertension, diabetes mellitus, non ischemic cardiomyopathy with CHF and EF of 15 to 20%, obesity who presents with chest pain, and nausea and vomiting. He states that yesterday at 11 AM she began having substernal chest pain, characterized as pressure, with radiation to her left side, which was worse with activity. She did take nitroglycerin without relief. Later she also began to have nausea and vomiting. Currently she continues to have chest pain, which is a 4/10 in severity. Denies shortness of breath, palpitations, immobilization, fever. She currently denies abdominal pain however states she did have tenderness with exam, which did not persist. No other symptoms at this time. Spoke with the ER physician, patient admission was accepted by internal medicine service for treatment. REVIEW OF SYSTEMS: Pertinent positives and negatives noted in HPI. PHYSICAL EXAMINATION: Vitals reviewed GENERAL: Resting comfortably in bed. Obese. EYES: PERRL, no scleral injection or icterus. No vision loss HENT: Normocephalic, atraumatic, hearing grossly intact, moist mucous membranes NECK: No tracheal deviation, full range of motion. CARDIOVASCULAR: S1 and S2 present. No murmurs, rubs, or gallops. PULMONARY: Chest is clear to auscultation, no wheezing, rhonchi, or crackles. ABDOMEN: Soft, left upper quadrant tenderness, nondistended. No palpable organomegaly. MUSCULOSKELETAL: No apparent joint swelling and deformities. EXTREMITIES: No apparent cyanosis, clubbing. No pedal edema. NEUROLOGICAL: Alert and oriented. Gross neurological examination with no apparent focal deficits. SKIN: No apparent rashes. ER FINDINGS: Labs significant for CBC unremarkable, D-dimer is WNL, total bilirubin 0.4, troponin<0.012, proBNP 73, lipase 1072 => 174 EKG independently interpreted showed sinus rhythm heart rate of 73, QTc 398, no ST segment elevation or depression seen, no T-wave inversions seen. Chest x-ray done independently interpreted showed no acute cardiopulmonary process. CTA chest, nondiagnostic for pulmonary embolus due to bolus timing, no evidence for dissection or occlusion. No acute thoracic process, stable right lower lobe superior segment pulmonary nodule. Abdominal pelvis CT findings of no acute evidence of acute abdominal process, obstructive uropathy or renal calculus, the gallbladder is surgically absent. Simple appearing renal cyst. Assessment and Plan: In summary, patient is a 49-year-old female with hypertension, diabetes mellitus, nonischemic cardiomyopathy with CHF and EF of 15 to 20%, obesity who presents with chest pain, and nausea and vomiting. #Unstable angina #Nonischemic cardiomyopathy #Congestive heart failure systolic dysfunction EF of around 15 to 20% Continue LifeVest Resume home cardiac medications Cardiology will consider cardiac catheterization if continued chest discomfort, no plans at this time Cardiology consulted # Elevated lipase, transient Initial lipase 1072 => 174 Lipid panel ordered CTAP with no acute process Continue pain management Begin Protonix and Zofran Monitor CBC, CMP Monitor vitals and urine output #Diabetes mellitus, type 2 Begin Accu-Cheks and low-dose sliding scale, monitor for hypoglycemia Resume home long-acting insulin 6 units Chronic Medical Conditions #Essential hypertension #Depression #Obesity DVT ppx: Subq Lovenox 40 meq daily Code status: Full code F: P.o. E: Replete as needed N: heart healthy diet A: Ambulatory Anticipated discharge place: Home Anticipated discharge time: [address] Santos seen patient with resident, present during exam, and agreed with findings. Dictation was produced using [employer] dictation software. Please excuse any grammatical, word or spelling errors. Attestation I have seen and examined this patient with my resident , discussed the same with the resident/COLEMAN, and agree with the dictator's assessment and plan as written Dr. Inderjit santos Past Medical History Past Medical History: Diabetes Mellitus, Hyperlipidemia, Hypertension, Juve cardial Infarction ([place]) Additional Past Medical History / Comment(s): Pt states "None" when asked if she has medical history Last Myocardial Infarction Date:: 08/2023 History of Any Multi-Drug Resistant Organisms: None Reported Past Surgical History: Bariatric Surgery, Cholecystectomy, No Surgical Hx Reported Additional Past Surgical History / Comment(s): Pt states "No" Past Anesthesia/Blood Transfusion Reactions: No Reported Reaction Past Psychological History: Bipolar Smoking Status: Former smoker Past Alcohol Use History: None Reported Past Drug Use History: Marijuana - Past Family History Mother Family Medical History: Deep Vein Thrombosis (DVT) Father History Unknown: Yes Medications and Allergies Home Medications Medication Instructions Recorded Confirmed Type ARIPiprazole [Abilify] 15 mg PO DAILY 09/22/23 02/19/25 History Aspirin 81 mg PO DAILY #30 tab 09/27/23 02/19/25 Rx Clopidogrel [Plavix] 75 mg PO DAILY #30 tab 09/27/23 02/19/25 Rx Nitroglycerin Sl Tabs [Nitrostat] 0.4 mg SUBLINGUAL Q5M PRN 12/01/23 02/19/25 History Atorvastatin [Lipitor] 40 mg PO DAILY 08/05/24 02/19/25 History Isosorbide Mononitrate ER [Imdur] 30 mg PO BID 11/28/24 02/19/25 History Furosemide [Lasix] 40 mg PO DAILY #30 tab 12/01/24 02/19/25 Rx Spironolactone [Aldactone] 25 mg PO DAILY #30 tab 12/01/24 02/19/25 Rx traZODone HCL 150 mg PO HS #30 12/01/24 02/19/25 Rx DULoxetine HCL [Cymbalta] 30 mg PO DAILY 12/25/24 02/19/25 History DULoxetine HCL [Cymbalta] 60 mg PO DAILY 12/25/24 02/19/25 History Insulin Aspart [NovoLOG Flexpen] 12 units SQ TID-W/MEALS 12/25/24 02/19/25 History Insulin Glargine (Lantus) [Lantus 15 unit SQ DAILY@0700 12/25/24 02/19/25 History Vial] lamoTRIgine 100 mg PO DAILY 12/25/24 02/19/25 History Empagliflozin [Jardiance] 25 mg PO DAILY 02/19/25 02/19/25 History LORazepam [Ativan] 0.5 mg PO DAILY PRN 02/19/25 02/19/25 History Metoprolol Tartrate [Lopressor] 50 mg PO BID 02/19/25 02/19/25 History Ranolazine [Ranexa] 500 mg PO BID 02/19/25 02/19/25 History Sacubitril/Valsartan [Entresto 24 1 tab PO BID 02/19/25 02/19/25 History mg-26 mg Tablet] Semaglutide [Ozempic] 1 mg SQ TH 02/19/25 02/19/25 History Allergies Allergy/AdvReac Type Severity Reaction Status Date / Time ketorolac [From Toradol] Allergy Unknown Verified 02/19/25 08:19 metformin AdvReac Diarrhea Verified 02/19/25 08:19 Physical Exam Vitals: Vital Signs Temp Pulse Resp BP Pulse Ox 02/19/25 07:46 68 20 104/63 98 02/19/25 06:00 98.8 F 73 18 104/63 97 02/19/25 04:00 70 18 105/77 99 02/19/25 02:00 75 18 110/60 98 02/18/25 23:00 72 18 105/60 98 02/18/25 21:46 68 18 108/60 100 02/18/25 19:48 73 18 118/72 100 02/18/25 18:30 98.0 F 74 17 113/75 97 Intake and Output 02/18/25 02/19/25 02/19/25 22:59 06:59 14:59 Other: Weight 109.769 kg Results CBC & Chem 7: 02/19/25 07:42 02/20/25 07:16 Labs: Abnormal Lab Results - Last 24 Hours (Table) 02/18/25 02/18/25 02/19/25 Range/Units 19:49 19:49 07:42 MCHC 31.7 L (32.0-37.0) g/dL Monocytes # 1.16 H (0.20-1.00) 10*3/uL Magnesium 2.4 H (1.6-2.3) mg/dL Lipase 1072 H (23-300) U/L
[2025-02-19] MEDS: LORazepam 0.5 MG TAB PO PRN (16:03)
[2025-02-19 18:13] LABS: Glucose,Whole Blood 124 mg/dL (70-110)
[2025-02-19] MEDS: traZODone HCL 50 MG TAB PO SCH (20:27)
[2025-02-20 06:25] LABS: Glucose,Whole Blood 107 mg/dL (70-110)
[2025-02-20] MEDS: ENOXAPARIN 40 MG/0.4 ML SYRINGE SQ SCH (08:15)
[2025-02-20 08:47] LABS: African American GFR (CKD) 84 (>60 ml/min/1.73 sqM); Anion Gap 5 mmol/L; Blood Urea Nitrogen 14 mg/dL (7-17); Calcium 8.5 mg/dL (8.4-10.2); Carbon Dioxide 28 mmol/L (22-30); Chloride 105 mmol/L (98-107); Glucose 97 mg/dL (74-99); Non-African American GFR(CKD) 73 (>60 ml/min/1.73 sqM); Potassium 4.3 mmol/L (3.5-5.1); Sodium 138 mmol/L (137-145)
--- NOTE | 2025-02-20 11:11 | P.PN ---
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 Patient follows in the office with Dr. Tamez. We have been asked to see the patient in consultation for chest pain. Patient examined at the bedside in the emergency room. Patient states any initially was having abdominal discomfort which then turned into chest discomfort yesterday. She also reports having nausea and vomiting. Denies diarrhea. She denies any radiation of the pain. At the time of examin ation this morning, patient denies chest pain or pressure. The patient is currently wearing a LifeVest. DIAGNOSTICS: - EKG reveals sinus mechanism with T wave inversions in high lateral leads. - Chest CTA: Nondiagnostic angiogram for pulmonary embolism due to bolus timing. No evidence of dissection or occlusive. No acute thoracic process. Stable right lower lobe superior segment pulmonary nodule. - CT abdomen pelvis: No evidence for acute abdominal process. No obstructive uropathy or renal calculus. Gallbladder surgically absent. Appendix normal. Simple appearing renal cyst. - Chest xray negative for acute process - Laboratory data: WBC 5.6. Hemoglobin 14.2. Platelet count 217. D-dimer 0.17. Sodium 137. Potassium 4.4. BUN 13. Creatinine 0.71. Troponin negative x 3. proBNP 73. Lipase 1072. Repeat 174. - Current home cardiac medications include metoprolol tartrate 50 mg twice a day, Entresto 24-26 mg twice a day, Jardiance 25 mg daily, Ranexa 500 mg twice a day, Aldactone 25 mg daily, Imdur 30 mg twice a day, Lasix 40 mg daily, Plavix 75 mg daily, Lipitor 40 mg daily, aspirin 81 mg daily. - Echocardiogram performed in November 2024 revealed ejection fraction 15 to 20%, trace MR, trace TR - Cardiac catheterization history: August 2023 revealing ulcerated plaque in proximal left circumflex 10 to 20%, normal LVEDP, dilated cardiomyopathy with EF 35% 02/20/2025 Patient examined this morning at bedside. Patient continues to complain of abdominal pain and chest pain. She denies shortness of breath. Vital signs are stable. Most recent lipase 174. PHYSICAL EXAM: VITAL SIGNS: Reviewed. GENERAL: Well-developed in no acute distress. HEENT: Head is normocephalic. Pupils are equal, round. Sclerae anicteric. Mucous membranes of the mouth are moist. Neck supple. No JVD or thyromegaly LUNGS: Respirations even and unlabored. Lungs essentially clear to auscultation bilaterally. HEART: Regular rate and rhythm. S1 and S2 heard. ABDOMEN: Soft. Nondistended. Nontender. EXTREMITIES: Normal range of motion. No clubbing or cyanosis. Peripheral pulses intact. No lower extremity edema NEUROLOGIC: Awake and alert. Oriented x 3. ASSESSMENT: Abdominal pain Chest pain, troponin negative x 3 Elevated lipase Mild nonobstructive CAD with vasospastic angina Nonischemic cardiomyopathy, 15 to 20% Diabetes Obesity: BMI 39.1 Former nicotine dependence PLAN: No need to repeat echocardiogram as this was performed in November 2024 Resume home cardiac medications Continue LifeVest Will discuss case with patient's primary metallurgical engineering technician, Dr. Tamez, regarding possible cardiac catheterization due to continued chest pain. Further recommendations pending patient course Nurse practitioner note has been reviewed by physician. Signing provider agrees with the documented findings, assessment, and plan of care documented by SONOSCOPE OPERATOR as a scribe. Objective - Vital Signs Vital signs: Vital Signs Temp 97.9 F 02/20/25 08:00 Pulse 75 02/20/25 08:01 Resp 18 02/20/25 08:00 BP 100/63 02/20/25 08:00 Pulse Ox 94 L 02/20/25 08:00 FiO2 Intake & Output 02/19/25 02/20/25 02/20/25 18:59 06:59 18:59 Intake Total 100 Output Total 3 Balance -3 100 Weight 115.4 kg Intake: Oral 100 Output: Urine 3 Other: Voiding Method Toilet Toilet # Bowel Movements 0 - Labs CBC & Chem 7: 02/19/25 07:42 02/20/25 07:16 Labs: Abnormal Lab Results - Last 24 Hours (Table) 02/19/25 02/19/25 Range/Units 12:25 18:11 POC Glucose (mg/dL) 128 H 124 H (70-110) mg/dL
--- NOTE | 2025-02-20 11:47 | P.PN ---
Subjective Progress Note Date: 02/20/25 History of present illness; Patient is a 49-year-old female with hypertension, diabetes mellitus, nonischem ic cardiomyopathy with CHF and EF of 15 to 20%, obesity who presents with chest pain, and nausea and vomiting. He states that yesterday at 11 AM she began having substernal chest pain, characterized as pressure, with radiation to her left side, which was worse with activity. She did take nitroglycerin without relief. Later she also began to have nausea and vomiting. Currently she continues to have chest pain, which is a 4/10 in severity. Denies shortness of breath, palpitations, immobilization, fever. She currently denies abdominal pain however states she did have tenderness with exam, which did not persist. No other symptoms at this time. 02/20. Patient seen and examined at bedside. She continues to have substernal CP that radiates between scapulas. Also, LUQ and epigastric pain persists. Cardiology is folowing and will plan catheterization in next 2 days. Labs today, BMP is unremarkable. PHYSICAL EXAMINATION: Vitals reviewed GENERAL: Resting comfortably in bed. Obese. EYES: PERRL, no scleral injection or icterus. No vision loss HENT: Normocephalic, atraumatic, hearing grossly intact, moist mucous membranes NECK: No tracheal deviation, full range of motion. CARDIOVASCULAR: S1 and S2 present. No murmurs, rubs, or gallops. PULMONARY: Chest is clear to auscultation, no wheezing, rhonchi, or crackles. ABDOMEN: Soft, left upper quadrant tenderness, nondistended. No palpable organomegaly. MUSCULOSKELETAL: No apparent joint swelling and deformities. EXTREMITIES: No apparent cyanosis, clubbing. No pedal edema. NEUROLOGICAL: Alert and oriented. Gross neurological examination with no apparent focal deficits. SKIN: No apparent rashes. ER FINDINGS: Labs significant for CBC unremarkable, D-dimer is WNL, total bilirubin 0.4, troponin<0.012, proBNP 73, lipase 1072 => 174 EKG independently interpreted showed sinus rhythm heart rate of 73, QTc 398, no ST segment elevation or depression seen, no T-wave inversions seen. Chest x-ray done independently interpreted showed no acute cardiopulmonary process. CTA chest, nondiagnostic for pulmonary embolus due to bolus timing, no evidence for dissection or occlusion. No acute thoracic process, stable right lower lobe superior segment pulmonary nodule. Abdominal pelvis CT findings of no acute evidence of acute abdominal process, obstructive uropathy or renal calculus, the gallbladder is surgically absent. Simple appearing renal cyst. Assessment and Plan: In summary, patient is a 49-year-old female with hypertension, diabetes mellitus, nonischemic cardiomyopathy with CHF and EF of 15 to 20%, obesity who presents with chest pain, and nausea and vomiting. #Unstable angina #Nonischemic cardiomyopathy #Congestive heart failure systolic dysfunction EF of around 15 to 20% Continue LifeVest Resume home cardiac medications Cardiac catheterization in next 2 days Cardiology consulted #Epigastric and LUQ abdominal pain, probably gastritis # Elevated lipase, transient Initial lipase 1072 => 174 Lipid panel ordered CTAP with no acute process Continue pain management Continue Protonix and Zofran Monitor CBC, CMP Monitor vitals and urine output #Diabetes mellitus, type 2 Begin Accu-Cheks and low-dose sliding scale, monitor for hypoglycemia Resume home long-acting insulin 6 units Chronic Medical Conditions #Essential hypertension #Depression #Obesity DVT ppx: Subq Lovenox 40 meq daily Code status: Full code F: P.o. E: Replete as needed N: heart healthy diet A: Ambulatory Anticipated discharge place: Home Anticipated discharge time: [address] Santos seen patient with resident, present during exam, and agreed with findings. Dictation was produced using [employer] dictation software. Please excuse any grammatical, word or spelling errors. Attestation I have seen and examined this patient with my resident , discussed the same with the resident/COLEMAN, and agree with the dictator's assessment and plan as written Dr. Inderjit santos Objective - Vital Signs Vital signs: Vital Signs Temp 97.9 F 02/20/25 08:00 Pulse 75 02/20/25 08:01 Resp 18 02/20/25 08:00 BP 100/63 02/20/25 08:00 Pulse Ox 94 L 02/20/25 08:00 FiO2 Intake & Output 02/19/25 02/20/25 02/20/25 18:59 06:59 18:59 Output Total 3 Balance -3 Weight 115.4 kg Output: Urine 3 Other: Voiding Method Toilet Toilet # Bowel Movements 0 - Labs CBC & Chem 7: 02/19/25 07:42 05/01/25 07:20 Labs: Abnormal Lab Results - Last 24 Hours (Table) 02/19/25 02/19/25 02/19/25 Range/Units 07:42 12:25 18:11 POC Glucose (mg/dL) 128 H 124 H (70-110) mg/dL Magnesium 2.4 H (1.6-2.3) mg/dL Total Protein 6.2 L (6.3-8.2) g/dL
[2025-02-20 11:56] LABS: Glucose,Whole Blood 88 mg/dL (70-110)
[2025-02-20] MEDS ORDERED: ALPRAZolam 0.5 MG TAB PO PRN (12:02)
[2025-02-20] MEDS ORDERED: NITROGLYCERIN SL TABS 0.4 MG TAB SUBLINGUAL PRN (12:02)
[2025-02-20] MEDS ORDERED: ALPRAZolam 0.25 MG TAB PO PRN (12:02)
[2025-02-20] MEDS: ONDANSETRON 4 MG/2 ML VIAL IVP PRN (12:18)
[2025-02-20 15:16] LABS: LDL Cholesterol,Calculated 41.6 mg/dL (0.0-131.0); VLDL Calculation 17.82 mg/dL (5.00-40.00)
[2025-02-20 16:44] LABS: Glucose,Whole Blood 103 mg/dL (70-110)
[2025-02-20] MEDS: LACTULOSE 20 GM/30 ML CUP PO ONE (18:30)
[2025-02-20 20:19] LABS: Glucose,Whole Blood 102 mg/dL (70-110)
[2025-02-20] MEDS: PANTOPRAZOLE 40 MG/10 ML VIAL IV SCH (21:04)
[2025-02-21] MEDS: SODIUM CHLORIDE 0.9% 1,000 ML in EMPTY BAG 1 BAG IV SCH (01:42)
[2025-02-21 06:11] LABS: Glucose,Whole Blood 120 mg/dL (70-110)
[2025-02-21] MEDS: ASPIRIN 325 MG TAB PO ONE (06:29)
[2025-02-21] MEDS: ATORVASTATIN 80 MG TAB PO ONE (06:29)
[2025-02-21 11:38] LABS: Glucose,Whole Blood 96 mg/dL (70-110)
[2025-02-21] MEDS: fentaNYL (PF) 50 MCG/1 ML VIAL IVP ONE (12:39)
[2025-02-21] MEDS: MIDAZOLAM 2 MG/2 ML VIAL IVP ONE (12:40)
[2025-02-21] MEDS: LIDOCAINE 1% INJ 10MG/ML (20 ML MDV) SQ ONE (12:40)
[2025-02-21] MEDS: VERAPAMIL SYRINGE (5 MG/10 ML) INTRAARTER ONE (12:45)
[2025-02-21] MEDS: HEPARIN SODIUM 1,000 UN/ML (10ML VL) IVP ONE (12:46)
[2025-02-21] MEDS: SODIUM CHLORIDE 0.9% 1,000 ML IV ONE (12:48)
[2025-02-21] MEDS: HEPARIN SODIUM,PORCINE 10,000 UNIT in SODIUM CHLORIDE 0.9% 1,000 ML IRRIGATION PRN (12:48)
[2025-02-21] MEDS: HEPARIN SODIUM,PORCINE (1 ML) 2,500 UNIT in SODIUM CHLORIDE 0.9% 250 ML IRRIGATION PRN (12:48)
[2025-02-21] MEDS: NITROGLYCERIN 1000MCG/10ML SYRINGE INTRAARTER ONE (12:51)
[2025-02-21] MEDS: IOPAMIDOL-370 100ML BTL INJ ONE (13:01)
--- NOTE | 2025-02-21 13:12 | P.PN ---
Subjective Progress Note Date: 02/21/25 History of present illness; Patient is a 49-year-old female with hypertension, diabetes mellitus, nonischem ic cardiomyopathy with CHF and EF of 15 to 20%, obesity who presents with chest pain, and nausea and vomiting. He states that yesterday at 11 AM she began having substernal chest pain, characterized as pressure, with radiation to her left side, which was worse with activity. She did take nitroglycerin without relief. Later she also began to have nausea and vomiting. Currently she continues to have chest pain, which is a 4/10 in severity. Denies shortness of breath, palpitations, immobilization, fever. She currently denies abdominal pain however states she did have tenderness with exam, which did not persist. No other symptoms at this time. 02/20. Patient seen and examined at bedside. She continues to have substernal CP that radiates between scapulas. Also, LUQ and epigastric pain persists. Cardiology is folowing and will plan catheterization in next 2 days. Labs today, BMP is unremarkable. 02/21/2025. Patient seen and examined at bedside. She continues to endorse chest pain which radiates to her intra scapular area. Cardiac cath planned for today. PHYSICAL EXAMINATION: Vitals reviewed GENERAL: Resting comfortably in bed. Obese. CARDIOVASCULAR: S1 and S2 present. No murmurs, rubs, or gallops. PULMONARY: Chest is clear to auscultation, no wheezing, rhonchi, or crackles. ABDOMEN: Soft, left upper quadrant tenderness, nondistended. No palpable organomegaly. MUSCULOSKELETAL: No apparent joint swelling and deformities. EXTREMITIES: No apparent cyanosis, clubbing. No pedal edema. NEUROLOGICAL: Alert and oriented. Gross neurological examination with no apparen t focal deficits. SKIN: No apparent rashes. ER FINDINGS: Labs significant for CBC unremarkable, D-dimer is WNL, total bilirubin 0.4, troponin<0.012, proBNP 73, lipase 1072 => 174 EKG independently interpreted showed sinus rhythm heart rate of 73, QTc 398, no ST segment elevation or depression seen, no T-wave inversions seen. Chest x-ray done independently interpreted showed no acute cardiopulmonary process. CTA chest, nondiagnostic for pulmonary embolus due to bolus timing, no evidence for dissection or occlusion. No acute thoracic process, stable right lower lobe superior segment pulmonary nodule. Abdominal pelvis CT findings of no acute evidence of acute abdominal process, obstructive uropathy or renal calculus, the gallbladder is surgically absent. Simple appearing renal cyst. Assessment and Plan: In summary, patient is a 49-year-old female with hypertension, diabetes mellitus, nonischemic cardiomyopathy with CHF and EF of 15 to 20%, obesity who presents with chest pain, and nausea and vomiting. #Unstable angina #Nonischemic cardiomyopathy #Congestive heart failure systolic dysfunction EF of around 15 to 20% Continue LifeVest Resume home cardiac medications Cardiac catheterization in next 2 days Cardiology following #Epigastric and LUQ abdominal pain, probably gastritis # Elevated lipase, transient Initial lipase 1072 => 174 Lipid panel reviewed CTAP with no acute process Continue pain management Continue Protonix and Zofran Monitor CBC, CMP Monitor vitals and urine output #Diabetes mellitus, type 2 Begin Accu-Cheks and low-dose sliding scale, monitor for hypoglycemia Resume home long-acting insulin 6 units Chronic Medical Conditions #Essential hypertension #Depression #Obesity DVT ppx: Subq Lovenox 40 meq daily Code status: Full code F: P.o. E: Replete as needed N: heart healthy diet A: Ambulatory Anticipated discharge place: Home Anticipated discharge time: Tomorrow Dr. Hernandez seen patient with resident, present during exam, and agreed with findings. Dictation was produced using [employer] dictation software. Please excuse any grammatical, word or spelling errors. Objective - Vital Signs Vital signs: Vital Signs Temp 97.9 F 02/21/25 08:27 Pulse 71 02/21/25 08:28 Resp 18 02/21/25 08:27 BP 113/68 02/21/25 08:27 Pulse Ox 96 02/21/25 08:27 FiO2 Intake & Output 02/20/25 02/21/25 02/21/25 18:59 06:59 18:59 Intake Total 500 Output Total 2 2 Balance 498 -2 Weight 115.3 kg Intake: Oral 500 Output: Urine 2 2 Other: Voiding Method Toilet Toilet Toilet # Voids 3 # Bowel Movements 0 - Labs CBC & Chem 7: 02/19/25 07:42 02/20/25 07:16 Labs: Abnormal Lab Results - Last 24 Hours (Table) 02/21/25 Range/Units 06:10 POC Glucose (mg/dL) 120 H (70-110) mg/dL
--- NOTE | 2025-02-21 13:21 | P.CRDCN ---
History of Present Illness Consult date: 02/21/25 History of present illness: DIAGNOSTIC CORONARY ANGIOGRAPHY and LEFT HEART CATH REPORT PROCEDURES PERFORMED: Left heart catheterization Left ventriculography Selective coronary angiography Moderate conscious sedation 20 mins [Ultrasound assisted] Right radial access INDICATION: [Unstable angina] BRIEF HPI: 49-year-old female with past medical history of vasospastic angina, nonischemic cardiomyopathy, type 2 diabetes, essential hypertension and obesity. In 08/2023 she had a heart catheterization done for recurrent anginal symptoms at that time we found that she has mild ulcerated plaque in LCx and inferior wall hypokinesia suggestive of [place]. She got readmitted in November 2024 with substernal chest pressure and recurrent chest pain. In interim patient was noncompliant and did not seek medical attention very frequently and was not compliant to her medications. In November she was found to have 30 to 40% disease in LCx which was stable and nonflow limiting. No interventions were done at that time. She was found to have dilated nonischemic cardiomyopathy with a EF of 15 to 20%. Since then she has been more compliant to her medication regiment following up with me frequently. We optimized her alogliptin medical therapy for congestive heart failure around optimized her fluid status. This time she presented the hospital because of abdominal pain and substernal chest pressure. Because of recurrent nature of substernal chest pressure she was scheduled for heart catheterization procedure. On admission she did have evidence of elevated lipase. She was on GLP analogs and SGLT2 for diabetes management. She had a CT abdomen done which did not report any evidence of pancreatitis patient does have history of gallbladder resection in the past. CONSENT: I have explained the procedural steps of above-mentioned procedures in layman's terms to the patient. I discussed the risks (including but not limited to stroke, emergent vascular or cardiac surgery or ), benefits and alternative therapies for the above-mentioned procedure. I discussed the risks of sedation/analgesia and blood product administration (if indicated). The patient has indicated understanding and acceptance of these risks. Conscious Sedation: Patient's ECG, heart rate, blood pressure, pulse oximetry were monitored throughout the duration of procedure under my direct supervision. [2] mg Versed and [50] mcg Fentanyl were used for induction of moderate consc ious sedation. Total duration of moderate concious sedation 20 minutes. PROCEDURAL DETAILS: Patient was prepped and draped in sterile fashion. 1% lidocaine was infiltrated over the right radial artery. Right radial access was obtained via modified seldinger technique. [Ultrasound was used for radial access]. Medications: 5mg of verapamil was administed in the radial sheet. 6000 Units of Heparin was administed once the catheter reached the aortic root Wires and Catheter used: J wire was advanced under fluroscopy to get to aortic root. 5 arg[place] JR 4 diagnostic catheter was utilized obtain left ventricular pressure and pressure gradint across aortic valve. 5 arg[place] JR 4 diagnostic catheter was used to selectively engage the right coronary ostium. 5 arg[place] JL 3.5 diagnostic catheter was utilized to selectively engage the left coronary ostium. Angiographic images were reviewed in detail. Catheter and wire were removed. Radial sheet was flushed. The right radial sheath was removed and a TR band was placed. Patent hemostasis was achieved. The patient tolerated the procedure well. Patient was transported back to the post catheterization holding area in stable condition. TECHNICAL DETAILS Total radiation: 213 mGy Total contrast used: Isovue 80 mL Complications: [none] Estimated Blood loss: less than 15 ml HEMODYNAMICS: Aortic Pressure: 90/56 mmHg. LV pressure: 95/1 mmHg. LVEDP 8 mmHg. There was no significant gradient across the aortic valve. SELECTIVE CORONARY ARTERIOGRAPHY: LEFT MAIN: The left main is short and large caliber vessel. It bifurcates into the LAD and circumflex. Left main appears angiographically normal. LEFT ANTERIOR DESCENDING CORONARY ARTERY: LAD is large caliber reaches up to the apex. Proximal LAD has mild luminal irregularities. Mid and distal LAD appears angiographically patent. Mid LAD gives rise to a medium caliber diagonal 1 branch which appears angiographically patent. LEFT CIRCUMFLEX CORONARY ARTERY: LCx is dominant. Proximal LCx has mild luminal irregularities. Mid LCx has 30 to 40% eccentric disease which appears stable and unchanged from prior exam from 11/2024. Mid LCx gives rise to a small OM1 branch, medium caliber OM 2 branch which appears graphically patent. After giving OM 2 branch LCx continues to become distal LCx which is large caliber and appears angiographically. Distal LCx gives rise to PL and PDA which appears angiographically patent. RIGHT CORONARY ARTERY: Nondominant moderate caliber vessel, mild mid irregularities otherwise patent LV ventriculography: LVEF 45 to 50%, globally reduced mild LV systolic dysfunction, trace mitral regurgitation Coronary blood flow was sluggish in all coronary distribution. The coronary blood flow did improve with 100 mcg of intracoronary nitroglycerin ad ministration. No significant changes noticed when compared to heart cath from 09/13/2023 and 12/14/2024. IMPRESSION: Mild nonobstructive disease in proximal LCx 30 to 40% Sluggish epicardial coronary blood flow LVEF 45 to 50% Normal LVEDP History of vasospastic angina History of nonischemic cardiomyopathy PLAN: 75 cc/h for 6 hours Continue guideline directed medical therapy with Entresto, Aldactone, SGLT2, beta-heriberto. Continue Imdur and Ranexa Recommend aspirin Plavix and Lipitor Recommend outpatient cardiac rehab Performing Physician Jorge Tamez MD, FACC, RPVI Thank you for allowing [facility] to participate in this patient's care. Feel free to reach out in case of any followup questions. Past Medical History Past Medical History: Diabetes Mellitus, Hyperlipidemia, Hypertension, Myocardial Infarction ([place]) Additional Past Medical History / Comment(s): Pt states "None" when asked if she has medical history Last Myocardial Infarction Date:: 08/2023 History of Any Multi-Drug Resistant Organisms: None Reported Past Surgical History: Bariatric Surgery, Cholecystectomy, No Surgical Hx Reported Additional Past Surgical History / Comment(s): Pt states "No" Past Anesthesia/Blood Transfusion Reactions: No Reported Reaction Past Psychological History: Bipolar Smoking Status: Former smoker Past Alcohol Use History: None Reported Past Drug Use History: Marijuana - Past Family History Mother Family Medical History: Deep Vein Thrombosis (DVT) Father History Unknown: Yes Medications and Allergies Home Medications Medication Instructions Recorded Confirmed Type ARIPiprazole [Abilify] 15 mg PO DAILY 09/22/23 02/19/25 History Aspirin 81 mg PO DAILY #30 tab 09/27/23 02/19/25 Rx Clopidogrel [Plavix] 75 mg PO DAILY #30 tab 09/27/23 02/19/25 Rx Nitroglycerin Sl Tabs [Nitrostat] 0.4 mg SUBLINGUAL Q5M PRN 12/01/23 02/19/25 History Atorvastatin [Lipitor] 40 mg PO DAILY 08/05/24 02/19/25 History Isosorbide Mononitrate ER [Imdur] 30 mg PO BID 11/28/24 02/19/25 History Furosemide [Lasix] 40 mg PO DAILY #30 tab 12/01/24 02/19/25 Rx Spironolactone [Aldactone] 25 mg PO DAILY #30 tab 12/01/24 02/19/25 Rx traZODone HCL 150 mg PO HS #30 12/01/24 02/19/25 Rx DULoxetine HCL [Cymbalta] 30 mg PO DAILY 12/25/24 02/19/25 History DULoxetine HCL [Cymbalta] 60 mg PO DAILY 12/25/24 02/19/25 History Insulin Aspart [NovoLOG Flexpen] 12 units SQ TID-W/MEALS 12/25/24 02/19/25 History Insulin Glargine (Lantus) [Lantus 15 unit SQ DAILY@0700 12/25/24 02/19/25 History Vial] lamoTRIgine 100 mg PO DAILY 12/25/24 02/19/25 History Empagliflozin [Jardiance] 25 mg PO DAILY 02/19/25 02/19/25 History LORazepam [Ativan] 0.5 mg PO DAILY PRN 02/19/25 02/19/25 History Metoprolol Tartrate [Lopressor] 50 mg PO BID 02/19/25 02/19/25 History Ranolazine [Ranexa] 500 mg PO BID 02/19/25 02/19/25 History Sacubitril/Valsartan [Entresto 24 1 tab PO BID 02/19/25 02/19/25 History mg-26 mg Tablet] Semaglutide [Ozempic] 1 mg SQ TH 02/19/25 02/19/25 History Allergies Allergy/AdvReac Type Severity Reaction Status Date / Time ketorolac [From Toradol] Allergy Unknown Verified 02/19/25 08:19 metformin AdvReac Diarrhea Verified 02/19/25 08:19 Physical Exam Vitals: Vital Signs Temp Pulse Resp BP Pulse Ox 02/21/25 11:21 61 18 93/55 93 L 02/21/25 08:28 71 02/21/25 08:27 97.9 F 71 18 113/68 96 02/21/25 05:15 98.0 F 72 18 112/71 98 02/21/25 00:45 69 18 98/55 95 02/20/25 20:55 97.6 F 67 18 104/65 97 02/20/25 15:23 97.8 F 69 18 109/68 98 02/20/25 13:39 69 Intake and Output 02/20/25 02/21/25 02/21/25 22:59 06:59 14:59 Intake Total 400 100 Output Total 2 Balance 398 100 Intake: IV 100 Oral 400 Output: Urine 2 Other: Voiding Method Toilet Toilet # Voids 3 3 # Bowel Movements 0 Weight 115.3 kg Results 02/19/25 07:42 02/20/25 07:16 Lipids 02/20/25 Range/Units 07:16 Triglycerides 89.10 (0.00-149.00) mg/dL Cholesterol 109.00 (0.00-200.00) mg/dL HDL Cholesterol 49.60 (40.00-60.00) mg/dL Cholesterol/HDL Ratio 2.20 Ratio Current Medications Generic Name Dose Route Start Last Admin Trade Name Freq PRN Reason Stop Dose Admin Alprazolam 0.25 mg 02/20/25 12:02 Alprazolam 0.25 Mg Tab PO Q6HR PRN Mild Anxiety Alprazolam 0.5 mg 02/20/25 12:02 Alprazolam 0.5 Mg Tab PO Q6HR PRN Moderate Anxiety Aripiprazole 15 mg 02/19/25 09:00 02/21/25 06:28 Aripiprazole 15 Mg Tab PO 15 mg DAILY LANG Administration Aspirin 81 mg 02/19/25 09:00 02/21/25 06:30 Aspirin 81 Mg PO Not Given DAILY LANG Clopidogrel Bisulfate 75 mg 02/19/25 09:00 02/21/25 06:28 Clopidogrel 75 Mg Tab PO 75 mg DAILY LANG Administration Dextrose/Water 25 ml 02/19/25 08:47 Dextrose 50% Syringe 50 Ml IVP PER PROTOCOL PRN Hypoglycemia Protocol Dextrose/Water 50 ml 02/19/25 08:47 Dextrose 50% Syringe 50 Ml IVP PER PROTOCOL PRN Hypoglycemia Protocol Duloxetine HCl 30 mg 02/19/25 09:00 02/21/25 06:28 Duloxetine Hcl 30 Mg Capsule. PO 30 mg DAILY LANG Administration Duloxetine HCl 60 mg 02/19/25 09:00 02/21/25 06:28 Duloxetine Hcl 60 Mg Capsule. PO 60 mg DAILY LANG Administration Enoxaparin Sodium 40 mg 02/20/25 09:00 02/21/25 06:20 Enoxaparin 40 Mg/0.4 Ml Syringe SQ Not Given DAILY LANG Furosemide 40 mg 02/19/25 09:00 02/21/25 08:30 Furosemide 40 Mg Tab PO 40 mg DAILY LANG Administration Hydromorphone HCl 0.5 mg 02/18/25 21:30 02/21/25 10:15 Hydromorphone 0.5 Mg/0.5 Ml Syringe IVP 0.5 mg Q4HR PRN Administration Pain Sodium Chloride 1,000 mls @ 130 mls/hr 02/18/25 20:45 02/21/25 01:42 Saline 0.9% IV Not Given .Q7H42M LANG Sodium Chloride 1,000 mls @ 130 mls/hr 02/18/25 21:30 02/21/25 05:21 Saline 0.9% IV Not Given .Q7H42M LANG Sodium Chloride 1,000 ml/ IV 1,000 mls @ 115.4 mls/hr 02/21/25 01:00 02/21/25 01:42 Solution IV Not Given .Q8H40M LANG 1 ML/KG/HR Insulin Glargine 6 unit 02/19/25 09:00 02/20/25 06:19 Insulin Glargine (Lantus) 100 Unit/Ml Syr SQ 6 unit DAILY@0700 LANG Administration Insulin Human Lispro 0 unit 02/19/25 12:30 02/21/25 06:20 Insulin Lispro (Humalog) 100 Unit/Ml 10 Ml Vl SQ Not Given [facility] Protocol Isosorbide Mononitrate 60 mg 02/19/25 09:00 02/21/25 06:28 Isosorbide Mononitrate Er 60 Mg Tab.Er.24h PO 60 mg DAILY LANG Administration Lamotrigine 100 mg 02/19/25 09:00 02/21/25 06:28 Lamotrigine 100 Mg Tab PO 100 mg DAILY LANG Administration Lorazepam 0.5 mg 02/19/25 08:50 02/20/25 21:10 Lorazepam 0.5 Mg Tab PO 0.5 mg DAILY PRN Administration Anxiety Metoprolol Tartrate 50 mg 02/19/25 09:00 02/21/25 06:28 Metoprolol Tartrate 50 Mg Tab PO 50 mg BID LANG Administration Naloxone HCl 0.2 mg 02/18/25 21:30 Naloxone 0.4 Mg/Ml 1 Ml Vial IV Q2M PRN Opioid Reversal Nitroglycerin 0.4 mg 02/20/25 12:02 Nitroglycerin Sl Tabs 0.4 Mg Tab SUBLINGUAL Q5M PRN Chest Pain Ondansetron HCl 4 mg 02/20/25 11:25 02/21/25 06:29 Ondansetron 4 Mg/2 Ml Vial IVP 4 mg Q6HR PRN Administration Nausea And Vomiting Pantoprazole Sodium 40 mg 02/20/25 21:00 02/21/25 06:29 Pantoprazole 40 Mg/10 Ml Vial IV 40 mg BID LANG Administration Ranolazine 500 mg 02/19/25 09:00 02/21/25 06:28 Ranolazine 500 Mg Tab.Er.12h PO 500 mg BID LANG Administration Sacubitril/Valsartan 1 each 02/19/25 09:00 02/21/25 06:28 Sacubitril/Valsartan 24 Mg-26 Mg Tablet PO 1 each BID LANG Administration Spironolactone 25 mg 02/19/25 09:00 02/21/25 08:30 Spironolactone 25 Mg Tab PO 25 mg DAILY LANG Administration Trazodone HCl 150 mg 02/19/25 21:00 02/20/25 21:03 Trazodone Hcl 50 Mg Tab PO 150 mg HS LANG Administration Intake and Output 02/20/25 02/21/25 02/21/25 22:59 06:59 14:59 Intake Total 400 100 Output Total 2 Balance 398 100 Intake: IV 100 Oral 400 Output: Urine 2 Other: Voiding Method Toilet Toilet # Voids 3 3 # Bowel Movements 0 Weight 115.3 kg 02/19/25 07:42 02/20/25 07:16
[2025-02-21] MEDS ORDERED: RX INFO: IV CONTRAST WAS GIVEN 1 EACH MISC MISCELLANE PRN (13:22)
[2025-02-21] MEDS: LACTULOSE 20 GM/30 ML CUP PO ONE (13:36)
[2025-02-21] MEDS: SODIUM CHLORIDE 0.9% 1,000 ML IV SCH (14:27)
--- NOTE | 2025-02-21 14:43 | P.CARDCATH ---
Date of Procedure: 02/21/25 Description of Procedure: DIAGNOSTIC CORONARY ANGIOGRAPHY and LEFT HEART CATH REPORT PROCEDURES PERFORMED: Left heart catheterization Left ventriculography Selective coronary angiography Moderate conscious sedation 20 mins [Ultrasound assisted] Right radial access INDICATION: [Unstable angina] BRIEF HPI: 49-year-old female with past medical history of vasospastic angina, nonischemic cardiomyopathy, type 2 diabetes, essential hypertension and obesity. In 08/2023 she had a heart catheterization done for recurrent anginal symptoms at that time we found that she has mild ulcerated plaque in LCx and inferior wall hypokinesia suggestive of [place]. She got readmitted in November 2024 with substernal chest pressure and recurrent chest pain. In interim patient was noncompliant and did not seek medical attention very frequently and was not compliant to her medications. In November she was found to have 30 to 40% disease in LCx which was stable and nonflow limiting. No interventions were done at that time. She was found to have dilated nonischemic cardiomyopathy with a EF of 15 to 20%. Since then she has been more compliant to her medication regiment following up with me frequently. We optimized her alogliptin medical therapy for congestive heart failure around optimized her fluid status. This time she presented the hospital because of abdominal pain and substernal chest pressure. Because of recurrent nature of substernal chest pressure she was scheduled for heart catheterization procedure. On admission she did have evidence of elevated lipase. She was on GLP analogs and SGLT2 for diabetes management. She had a CT abdomen done which did not report any evidence of pancreatitis patient does have history of gallbladder resection in the past. CONSENT: I have explained the procedural steps of above-mentioned procedures in layman's terms to the patient. I discussed the risks (including but not limited to stroke, emergent vascular or cardiac surgery or ), benefits and alternative therapies for the above-mentioned procedure. I discussed the risks of sedation/analgesia and blood product administration (if indicated). The patient has indicated understanding and acceptance of these risks. Conscious Sedation: Patient's ECG, heart rate, blood pressure, pulse oximetry were monitored throughout the duration of procedure under my direct supervision. [2] mg Versed and [50] mcg Fentanyl were used for induction of moderate conscious sedation. Total duration of moderate concious sedation 20 minutes. PROCEDURAL DETAILS: Patient was prepped and draped in sterile fashion. 1% lidocaine was infiltrated over the right radial artery. Right radial access was obtained via modified seldinger technique. [Ultrasound was used for radial access]. Medications: 5mg of verapamil was administed in the radial sheet. 6000 Units of Heparin was administed once the catheter reached the aortic root Wires and Catheter used: J wire was advanced under fluroscopy to get to aortic root. 5 malawian JR 4 diagnostic catheter was utilized obtain left ventricular pressure and pressure gradint across aortic valve. 5 malawian JR 4 diagnostic catheter was used to selectively engage the right coronary ostium. 5 malawian JL 3.5 diagnostic catheter was utilized to selectively engage the left coronary ostium. Angiographic images were reviewed in detail. Catheter and wire were removed. Radial sheet was flushed. The right radial sheath was removed and a TR band was placed. Patent hemostasis was achieved. The patient tolerated the procedure well. Patient was transported back to the post catheterization holding area in stable condition. TECHNICAL DETAILS Total radiation: 213 mGy Total contrast used: Isovue 80 mL Complications: [none] Estimated Blood loss: less than 15 ml HEMODYNAMICS: Aortic Pressure: 90/56 mmHg. LV pressure: 95/1 mmHg. LVEDP 8 mmHg. There was no significant gradient across the aortic valve. SELECTIVE CORONARY ARTERIOGRAPHY: LEFT MAIN: The left main is short and large caliber vessel. It bifurcates into the LAD and circumflex. Left main appears angiographically normal. LEFT ANTERIOR DESCENDING CORONARY ARTERY: LAD is large caliber reaches up to the apex. Proximal LAD has mild luminal irregularities. Mid and distal LAD appears angiographically patent. Mid LAD gives rise to a medium caliber diagonal 1 branch which appears angiographically patent. LEFT CIRCUMFLEX CORONARY ARTERY: LCx is dominant. Proximal LCx has mild luminal irregularities. Mid LCx has 30 to 40% eccentric disease which appears stable and unchanged from prior exam from 11/2024. Mid LCx gives rise to a small OM1 branch, medium caliber OM 2 branch which appears graphically patent. After giving OM 2 branch LCx continues to become distal LCx which is large caliber and appears angiographically. Distal LCx gives rise to PL and PDA which appears angiographically patent. RIGHT CORONARY ARTERY: Nondominant moderate caliber vessel, mild mid irregularities otherwise patent LV ventriculography: LVEF 45 to 50%, globally reduced mild LV systolic dysfunction, trace mitral regurgitation Coronary blood flow was sluggish in all coronary distribution. The coronary blood flow did improve with 100 mcg of intracoronary nitroglycerin administration. No significant changes noticed when compared to heart cath from 09/13/2023 and 12/14/2024. IMPRESSION: Mild nonobstructive disease in proximal LCx 30 to 40% Sluggish epicardial coronary blood flow LVEF 45 to 50% Normal LVEDP History of vasospastic angina History of nonischemic cardiomyopathy PLAN: 75 cc/h for 6 hours Continue guideline directed medical therapy with Entresto, Aldactone, SGLT2, beta-heriberto. Continue Imdur and Ranexa Recommend aspirin Plavix and Lipitor Recommend outpatient cardiac rehab Performing Physician Jorge Tamez MD, FACC, RPVI Thank you for allowing [facility] to participate in this patient's care. Feel free to reach out in case of any followup questions.
[2025-02-21 16:33] LABS: Glucose,Whole Blood 110 mg/dL (70-110)
[2025-02-21 20:25] LABS: Glucose,Whole Blood 96 mg/dL (70-110)
[2025-02-22 06:17] LABS: Glucose,Whole Blood 101 mg/dL (70-110)
[2025-02-22 06:18] VITALS: TEMP 98.2
[2025-02-22 08:33] LABS: African American GFR (CKD) >90 (>60 ml/min/1.73 sqM); Anion Gap 9 mmol/L; Blood Urea Nitrogen 10 mg/dL (7-17); Carbon Dioxide 25 mmol/L (22-30); Chloride 103 mmol/L (98-107); Glucose 124 mg/dL (74-99); Non-African American GFR(CKD) 86 (>60 ml/min/1.73 sqM); Potassium 4.7 mmol/L (3.5-5.1); Sodium 137 mmol/L (137-145)
[2025-02-22] MEDS: FUROSEMIDE 20 MG TAB PO SCH (09:01)
[2025-02-22 09:12] VITALS: RESP 17
[2025-02-22 11:19] LABS: Glucose,Whole Blood 99 mg/dL (70-110)
[2025-02-22 12:42] VITALS: BP 110/66; PULSE 84
--- NOTE | 2025-02-22 12:56 | P.PN ---
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 Patient follows in the office with Dr. Tamez. We have been asked to see the patient in consultation for chest pain. Patient examined at the bedside in the emergency room. Patient states any initially was having abdominal discomfort which then turned into chest discomfort yesterday. She also reports having nausea and vomiting. Denies diarrhea. She denies any radiation of the pain. At the time of examin ation this morning, patient denies chest pain or pressure. The patient is currently wearing a LifeVest. DIAGNOSTICS: - EKG reveals sinus mechanism with T wave inversions in high lateral leads. - Chest CTA: Nondiagnostic angiogram for pulmonary embolism due to bolus timing. No evidence of dissection or occlusive. No acute thoracic process. Stable right lower lobe superior segment pulmonary nodule. - CT abdomen pelvis: No evidence for acute abdominal process. No obstructive uropathy or renal calculus. Gallbladder surgically absent. Appendix normal. Simple appearing renal cyst. - Chest xray negative for acute process - Laboratory data: WBC 5.6. Hemoglobin 14.2. Platelet count 217. D-dimer 0.17. Sodium 137. Potassium 4.4. BUN 13. Creatinine 0.71. Troponin negative x 3. proBNP 73. Lipase 1072. Repeat 174. - Current home cardiac medications include metoprolol tartrate 50 mg twice a day, Entresto 24-26 mg twice a day, Jardiance 25 mg daily, Ranexa 500 mg twice a day, Aldactone 25 mg daily, Imdur 30 mg twice a day, Lasix 40 mg daily, Plavix 75 mg daily, Lipitor 40 mg daily, aspirin 81 mg daily. - Echocardiogram performed in November 2024 revealed ejection fraction 15 to 20%, trace MR, trace TR - Cardiac catheterization history: August 2023 revealing ulcerated plaque in proximal left circumflex 10 to 20%, normal LVEDP, dilated cardiomyopathy with EF 35% 02/20/2025 Patient examined this morning at bedside. Patient continues to complain of abdominal pain and chest pain. She denies shortness of breath. Vital signs are stable. Most recent lipase 174. 02/22/2025 Patient is status post cardiac catheterization revealing mild nonobstructive disease in the proximal circumflex 30 to 40%, sluggish epicardial coronary blood flow, ejection fraction 45 to 50%, and normal LVEDP. PHYSICAL EXAM: VITAL SIGNS: Reviewed. GENERAL: Well-developed in no acute distress. HEENT: Head is normocephalic. Pupils are equal, round. Sclerae anicteric. Mucous membranes of the mouth are moist. Neck supple. No JVD or thyromegaly LUNGS: Respirations even and unlabored. Lungs essentially clear to auscultation bilaterally. HEART: Regular rate and rhythm. S1 and S2 heard. ABDOMEN: Soft. Nondistended. Nontender. EXTREMITIES: Normal range of motion. No clubbing or cyanosis. Peripheral pulses intact. No lower extremity edema NEUROLOGIC: Awake and alert. Oriented x 3. ASSESSMENT: Abdominal pain Chest pain, troponin negative x 3 Elevated lipase Mild nonobstructive CAD with vasospastic angina Nonischemic cardiomyopathy, 15 to 20% Diabetes Obesity: BMI 39.1 Former nicotine dependence PLAN: Continue current cardiac medications including aspirin, Plavix, Lasix, Imdur, metoprolol tartrate, Ranexa, Entresto, and Aldactone Patient is stable for discharge home today from a cardiac standpoint Patient to follow-up postdischarge with Dr. Tamez Nurse practitioner note has been reviewed by physician. Signing provider agrees with the documented findings, assessment, and plan of care documented by PAPER CARRIER as a scribe. Objective - Vital Signs Vital signs: Vital Signs Temp 98.2 F 02/22/25 11:50 Pulse 84 02/22/25 11:50 Resp 17 02/22/25 11:50 BP 110/66 02/22/25 11:50 Pulse Ox 98 02/22/25 11:50 FiO2 Intake & Output 02/21/25 02/22/25 02/22/25 18:59 06:59 18:59 Intake Total 580 490 250 Balance 580 490 250 Weight 114.4 kg Intake: IV 100 10 10 Invasive Line 1 10 10 Oral 480 480 240 Other: Voiding Method Toilet Toilet Toilet # Voids 2 1 - Labs CBC & Chem 7: 02/19/25 07:42 02/22/25 07:20 Labs: Abnormal Lab Results - Last 24 Hours (Table) 02/22/25 Range/Units 07:20 Glucose 124 H (74-99) mg/dL
--- NOTE | 2025-02-22 14:47 | P.DS ---
Providers Date of admission: 02/18/25 21:30 Expected date of discharge: 02/22/25 Attending physician: Samm Hobson Consults: 02/18/25 21:30 Consult Physician Routine Consulting Provider: Saida Camacho Consult Reason/Comments: cp Do you want consulting provider notified?: Yes Primary care physician: Ariadna Lambert Hospital Course: Discharge diagnoses; #Unstable angina #Nonischemic cardiomyopathy #Congestive heart failure systolic dysfunction LVEF 45 to 50% #Epigastric and LUQ abdominal pain, probably gastritis #Elevated lipase #Diabetes mellitus, type 2 #Essential hypertension #Depression #Obesity Hospital course; History of present illness; Patient is a 49-year-old female with hypertension, diabetes mellitus, nonischemic cardiomyopathy with CHF and EF of 15 to 20%, obesity who presents with chest pain, and nausea and vomiting. He states that yesterday at 11 AM she began having substernal chest pain, characterized as pressure, with radiation to her left side, which was worse with activity. She did take nitroglycerin without relief. Later she also began to have nausea and vomiting. Currently she continues to have chest pain, which is a 4/10 in severity. Denies shortness of breath, palpitations, immobilization, fever. She currently denies abdominal pain however states she did have tenderness with exam, which did not persist. No other symptoms at this time. ER FINDINGS: Labs significant for CBC unremarkable, D-dimer is WNL, total bilirubin 0.4, troponin<0.012, proBNP 73, lipase 1072 => 174 EKG independently interpreted showed sinus rhythm heart rate of 73, QTc 398, no ST segment elevation or depression seen, no T-wave inversions seen. Chest x-ray done independently interpreted showed no acute cardiopulmonary process. CTA chest, nondiagnostic for pulmonary embolus due to bolus timing, no evidence for dissection or occlusion. No acute thoracic process, stable right lower lobe superior segment pulmonary nodule. Abdominal pelvis CT findings of no acute evidence of acute abdominal process, obstructive uropathy or renal calculus, the gallbladder is surgically absent. Simple appearing renal cyst. During hospital stay patient was seen by cardiology and cardiac catheterization was performed with findings of mild nonobstructive disease in proximal left circumflex 30 to 40%, sluggish epicardial coronary blood flow, LVEF 45 to 50%, normal LVEDP. She did have transient elevated lipase which quickly resolved. She does have history of bariatric surgery, and has chronic stable abdominal pain, which did not improve with Protonix or pain management. Abdominal CT as above, no acute findings. Patient discharged to home in stable condition. Continue Imdur 60 mg daily, Protonix 40 mg daily, Lasix changed to 20 mg daily. Continue cardiac medication. She will need to follow-up with her PCP and cardiology. She is being referred to gastroenterology for further workup of stated dysphagia and may need further evaluation with EGD. PHYSICAL EXAMINATION: Vitals reviewed GENERAL: Resting comfortably in bed. Obese. CARDIOVASCULAR: S1 and S2 present. No murmurs, rubs, or gallops. PULMONARY: Chest is clear to auscultation, no wheezing, rhonchi, or crackles. ABDOMEN: Soft, left upper quadrant tenderness, nondistended. No palpable organomegaly. MUSCULOSKELETAL: No apparent joint swelling and deformities. EXTREMITIES: No apparent cyanosis, clubbing. No pedal edema. NEUROLOGICAL: Alert and oriented. Gross neurological examination with no apparent focal deficits. SKIN: No apparent rashes. Dr. Hernandez seen patient with resident, present during exam, and agreed with findings. Dictation was produced using [employer] dictation software. please excuse any grammatical, word or spelling errors. Patient Condition at Discharge: Stable Plan - Discharge Summary Discharge Rx Participant: No New Discharge Prescriptions: New Isosorbide Mononitrate ER [Imdur] 60 mg PO DAILY tab Pantoprazole [Protonix] 40 mg PO DAILY #30 tab Furosemide [Lasix] 20 mg PO DAILY tab Continue Aspirin 81 mg PO DAILY #30 tab Atorvastatin [Lipitor] 40 mg PO DAILY Insulin Glargine (Lantus) [Lantus Vial] 15 unit SQ DAILY@0700 lamoTRIgine 100 mg PO DAILY Ranolazine [Ranexa] 500 mg PO BID LORazepam [Ativan] 0.5 mg PO DAILY PRN PRN Reason: Anxiety Metoprolol Tartrate [Lopressor] 50 mg PO BID ARIPiprazole [Abilify] 15 mg PO DAILY Clopidogrel [Plavix] 75 mg PO DAILY #30 tab Nitroglycerin Sl Tabs [Nitrostat] 0.4 mg SUBLINGUAL Q5M PRN PRN Reason: Chest Pain Spironolactone [Aldactone] 25 mg PO DAILY #30 tab traZODone HCL 150 mg PO HS #30 DULoxetine HCL [Cymbalta] 60 mg PO DAILY DULoxetine HCL [Cymbalta] 30 mg PO DAILY Insulin Aspart [NovoLOG Flexpen] 12 units SQ TID-W/MEALS Empagliflozin [Jardiance] 25 mg PO DAILY Semaglutide [Ozempic] 1 mg SQ TH Sacubitril/Valsartan [Entresto 24 mg-26 mg Tablet] 1 tab PO BID Discontinued Isosorbide Mononitrate ER [Imdur] 30 mg PO BID Furosemide [Lasix] 40 mg PO DAILY #30 tab Discharge Medication List ARIPiprazole [Abilify] 15 mg PO DAILY 09/22/23 [History] Aspirin 81 mg PO DAILY #30 tab 09/27/23 [Rx] Clopidogrel [Plavix] 75 mg PO DAILY #30 tab 09/27/23 [Rx] Nitroglycerin Sl Tabs [Nitrostat] 0.4 mg SUBLINGUAL Q5M PRN 12/01/23 [History] Atorvastatin [Lipitor] 40 mg PO DAILY 08/05/24 [History] Spironolactone [Aldactone] 25 mg PO DAILY #30 tab 12/01/24 [Rx] traZODone HCL 150 mg PO HS #30 12/01/24 [Rx] DULoxetine HCL [Cymbalta] 30 mg PO DAILY 12/25/24 [History] DULoxetine HCL [Cymbalta] 60 mg PO DAILY 12/25/24 [History] Insulin Aspart [NovoLOG Flexpen] 12 units SQ TID-W/MEALS 12/25/24 [History] Insulin Glargine (Lantus) [Lantus Vial] 15 unit SQ DAILY@0700 12/25/24 [History] lamoTRIgine 100 mg PO DAILY 12/25/24 [History] Empagliflozin [Jardiance] 25 mg PO DAILY 02/19/25 [History] LORazepam [Ativan] 0.5 mg PO DAILY PRN 02/19/25 [History] Metoprolol Tartrate [Lopressor] 50 mg PO BID 02/19/25 [History] Ranolazine [Ranexa] 500 mg PO BID 02/19/25 [History] Sacubitril/Valsartan [Entresto 24 mg-26 mg Tablet] 1 tab PO BID 02/19/25 [History] Semaglutide [Ozempic] 1 mg SQ TH 02/19/25 [History] Furosemide [Lasix] 20 mg PO DAILY tab 02/22/25 [Rx] Isosorbide Mononitrate ER [Imdur] 60 mg PO DAILY tab 02/22/25 [Rx] Pantoprazole [Protonix] 40 mg PO DAILY #30 tab 02/22/25 [Rx] Follow up Appointment(s)/Referral(s): Jorge Tamez MD [Medical Doctor] - 1 Week (March 05, 11:30) Ariadna Lambert MD [Primary Care Provider] - 1-2 days (left message with primary) Patient Instructions/Handouts: Chest Pain (DC), Pancreatitis (DC), After Radial Heart Catheterization (GEN)
== END 2025-02-22 15:18 | disposition home or self-care (01) | DRG 287 ==
LOC: EC 18:26 → 3SCARD 21:30
PROVIDERS: ADMIT Hospitalist; ATTEND Hospitalist
PROC: B2111ZZ Fluoroscopy of Multiple Coronary Arteries using Low Osmolar Contrast (ICD-10-PCS; 2025-02-21)
PROC: 4A023N7 Measurement of Cardiac Sampling and Pressure, Left Heart, Percutaneous Approach (ICD-10-PCS; principal; 2025-02-21 12:30)
DX: I25.110 Atherosclerotic heart disease of native coronary artery with unstable angina pectoris (principal); I50.20 Unspecified systolic (congestive) heart failure; I11.0 Hypertensive heart disease with heart failure; I42.0 Dilated cardiomyopathy; E11.9 Type 2 diabetes mellitus without complications; Z68.39 Body mass index [BMI] 39.0-39.9, adult; F32.A Depression, unspecified; I42.8 Other cardiomyopathies; Z79.4 Long term (current) use of insulin; K29.70 Gastritis, unspecified, without bleeding; E66.9 Obesity, unspecified; R74.8 Abnormal levels of other serum enzymes; Z87.891 Personal history of nicotine dependence; E78.5 Hyperlipidemia, unspecified; I25.2 Old myocardial infarction; N28.1 Cyst of kidney, acquired; Z79.02 Long term (current) use of antithrombotics/antiplatelets; Z79.82 Long term (current) use of aspirin; Z79.84 Long term (current) use of oral hypoglycemic drugs; Z79.899 Other long term (current) drug therapy; Z90.49 Acquired absence of other specified parts of digestive tract; Z91.148 Patient's other noncompliance with medication regimen for other reason; Z98.84 Bariatric surgery status
CPT/HCPCS: 36415; 71045; 71275; 74177; 80048; 80053; 80061; 83690; 83735; 83880; 84100; 84484; 85025; 85379; 85610; 85730; 93005; 93458; 96361; 96374; 96375; 96376; 99291

== ENCOUNTER 2025-02-28 19:44 | Outpatient (CLI) | payer MEDICARE ==
--- NOTE | 2025-03-11 22:11 | P.PCN ---
Date of Procedure: 02/28/25 Operative Findings: CPAP titration report Pertinent history A 49-year-old female patient referred to sleep center due to concern of obstructive sleep apnea. The patient is known to have congestive heart failure with an ejection fraction of 35 to 40%, coronary artery disease with previous non-ST segment elevation myocardial infarction, chronic A-fib, insulin-dependent diabetes mellitus, hypertension hyperlipidemia, mild intermittent bronchial asthma and bipolar disorder. The patient also is morbidly obese and carries a body mass index of 39.9. She has history of snoring, excessive daytime sleepiness and frequent napping and chronic hypersomnia and sleepiness. The patient underwent a home sleep study and the patient was found to have moderate severe JENN with an AHI of 19.5 with mild nocturnal oxygen desaturations. Based on that, the patient was asked to come into the sleep center to undergo CPAP titration. Pertinent physical findings Weight is 238 pounds with a body mass index of 38.4 Technical description The patient was studied using a standard complex polysomnography protocol that included recording of the Lead II EKG, Central, occipital and frontal EEG, right and left outer canthus EOG, submental EMG, right and left anterior tibialis EMG, respiratory airflow by thermocouple and or pressure/flow transducer, respiratory efforts by abdominal and thoracic PVDF belts, oxygen saturation by cable oximetry. Position by observation synchronized the PSG. Equipment used: [employer]. Stepwise CPAP titration was done to eliminate all obstructive respiratory events. Sleep architecture The total recording duration was 384.5 minutes. The total sleep time was 306.5 minutes. The overall sleep emergency was 79.7%. The latency to sleep onset was 32 minutes. The sleep architecture was characterized by 11.1% stage I, 89.5% stage II, 0% stage III and 0% REM sleep. The wake after sleep onset time was 45.5 minutes. The total arousal index was 10.0 Respiratory analysis CPAP titration was initially started at a pressure of 6 cm of water and the pressure was gradually increased by increments of 1 cm to reach a maximum CPAP pressure of 14 cm of water. The patient was also given a BiPAP trial and the pressures included 10/6 and the maximum BiPAP pressure achieved was 17/13 cm of water. I carefully reviewed the CPAP and BiPAP titration. Note that the this titration was done essentially and non-REM sleep and the patient was sleeping in a nonsupine body position, essentially on her side. I noted that the CPAP therapy was effective in eliminating obstructive respiratory events although there was some mild residual obstructive hypopneas existed at the various CPAP pressures. The obstructive respiratory events were more predominant at higher CPAP and BiPAP pressures. No significant desaturations were encountered and the patient manage to maintain saturation above 90% Sleep continuity summary The patient had total of 51 arousals with an index of 10. The respiratory arousal index was 0 Cardiac summary Average heart rate was 66 with a minimum heart rate of 63 and a maximum of 70 and the current cardiac rhythm is sinus Periodic limb movements No significant periodic limb movement activity identified Assessment Obstructive sleep apnea, moderate in severity with an AHI of 19.5, successful CPAP titration Mild nocturnal oxygen desaturations, improved with CPAP therapy CHF with an EF of around 35 to 40% Coronary artery disease with previous non-ST segment elevation myocardial infarction History chronic atrial fibrillation Insulin-dependent diabetes mellitus Hypertension Hyperlipidemia Bipolar disorder Obesity with a BMI of 39.9 Plan This patient should benefit from CPAP therapy. The patient will be given an APAP machine and this will be set at the minimum pressure of 5 and a maximum pressure of 10 with a C-Flex of 3 The patient will be offered an AirFit N20 medium size nasal mask encourage weight loss. Optimize cardiac condition and cardiovascular risk factors. The patient was seen back in the office in 30 to 90 days to assess clinical response and compliancy.
== END 2025-03-01 05:15 | disposition home or self-care (01) ==
LOC: 3 N SLEEP 19:44
PROVIDERS: ATTEND Internal Medicine Critical Care Medicine
DX: G47.33 Obstructive sleep apnea (adult) (pediatric) (principal); I11.0 Hypertensive heart disease with heart failure; I50.9 Heart failure, unspecified; I25.10 Atherosclerotic heart disease of native coronary artery without angina pectoris; I25.2 Old myocardial infarction; E11.9 Type 2 diabetes mellitus without complications; E78.5 Hyperlipidemia, unspecified; F31.9 Bipolar disorder, unspecified; E66.9 Obesity, unspecified; Z68.39 Body mass index [BMI] 39.0-39.9, adult; Z86.79 Personal history of other diseases of the circulatory system; Z79.4 Long term (current) use of insulin; Z99.89 Dependence on other enabling machines and devices; Z88.5 Allergy status to narcotic agent; Z88.8 Allergy status to other drugs, medicaments and biological substances; Z88.6 Allergy status to analgesic agent
CPT/HCPCS: 95811